=== PATIENT | male | born 1960 | race Caucasian/White ===

== ENCOUNTER 2016-12-01 17:37 | Outpatient (CLI) | payer OTHER | END 2016-12-01 17:38 | disposition critical access hospital (66) | DX: R53.81 Other malaise (principal); R53.1 Weakness | CPT/HCPCS: A0425; A0429 ==

== ENCOUNTER 2016-12-01 18:06 | Inpatient (IN) | payer OTHER ==
[2016-12-01] MEDS ORDERED: FOLIC ACID INJ 1 MG, THIAMINE INJ 100 MG, MAGNESIUM SULFATE 2 GM, MULTIVITAMIN 10 ML in... IV STA ×5 (18:10)
[2016-12-01] MEDS ORDERED: MAGNESIUM SULFATE 2 GRAM 50 ML IV ONE ×2 (18:14→21:23)
[2016-12-01] MEDS ORDERED: THIAMINE 100 MG/1 ML 2 ML MDV ONE ×2 (18:14→18:15)
[2016-12-01] MEDS ORDERED: POTASSIUM BICARB 25 MEQ TABLET PO STA (19:33)
[2016-12-01] MEDS ORDERED: POTASSIUM BICARB 25 MEQ TABLET PO ONE ×2 (19:41→19:48)
[2016-12-01] MEDS ORDERED: ACETAMINOPHEN 325 MG TABLET PO PRN (21:23)
[2016-12-01] MEDS ORDERED: SODIUM CHLORIDE FLUSH 0.9% 10 ML SYRINGE IVP PRN (21:23)
[2016-12-01] MEDS ORDERED: LORazepam 0.5 MG TABLET PO PRN (21:23)
[2016-12-01] MEDS ORDERED: PROCHLORPERAZINE 10 MG/2 ML VIAL IVP PRN (21:23)
[2016-12-01] MEDS ORDERED: oxyCODONE 5 MG TABLET PO PRN ×2 (21:23)
[2016-12-01] MEDS ORDERED: ONDANSETRON 4 MG/2 ML VIAL IVP PRN (21:23)
[2016-12-01] MEDS ORDERED: POTASSIUM CHLORIDE 20 MEQ TABLET PO STA (21:23)
[2016-12-01] MEDS ORDERED: MIN OIL/DIMETHICON/COCONUT OIL 92 GM TUBE TOP PRN (22:33)
[2016-12-01] MEDS ORDERED: POTASSIUM CHLORIDE 20 MEQ TABLET PO SCH (22:58)
[2016-12-01] MEDS: NS W/20 MEQ KCL 1,000 ML IV SCH (23:10)
[2016-12-01] MEDS: NEUTRA-PHOS 250 MG TABLET PO SCH (23:11)
[2016-12-01] MEDS: SODIUM CHLORIDE FLUSH 0.9% 10 ML SYRINGE IVP SCH (23:12)
[2016-12-02] MEDS: CLINDAMYCIN 600 MG/50 ML 50 ML IV SCH ×4 (02:35→21:09)
[2016-12-02] MEDS: PANTOPRAZOLE 40 MG TABLET PO SCH (06:12)
[2016-12-02] MEDS: SODIUM CHLORIDE FLUSH 0.9% 10 ML SYRINGE IVP SCH ×3 (06:13→21:09)
[2016-12-02] MEDS: POTASSIUM CHLOR 10 MEQ/100 ML 100 ML IV SCH ×6 (06:56→14:01)
[2016-12-02] MEDS: NS W/20 MEQ KCL 1,000 ML IV SCH ×2 (06:57→21:08)
[2016-12-02] MEDS: NEUTRA-PHOS 250 MG TABLET PO SCH ×3 (08:47→16:54)
[2016-12-02] MEDS ORDERED: cefTRIAXone 1 GM in SODIUM CHLORIDE 0.9% MINIBAG 100 ML IV SCH (09:00)
[2016-12-02] MEDS ORDERED: AZITHROMYCIN INJ 500 MG in SODIUM CHLORIDE 0.9% 250 ML IV SCH (09:00)
[2016-12-02] MEDS: MULTIVITAMIN 10 ML, THIAMINE INJ 100 MG, FOLIC ACID INJ 1 MG in SODIUM CHLORIDE 0.9% 1,... IV SCH (09:51)
[2016-12-02] MEDS: ENOXAPARIN 40 MG/0.4 ML SYRINGE SUBQ SCH (09:51)
[2016-12-02] MEDS: cefTRIAXone 1 GM in SODIUM CHLORIDE 0.9% MINIBAG 100 ML IV SCH (10:57)
[2016-12-02] MEDS: AZITHROMYCIN INJ 500 MG in SODIUM CHLORIDE 0.9% 250 ML IV SCH (11:34)
[2016-12-02] MEDS: POLYETHYLENE GLYCOL 3350 17 GM PACKET PO SCH (13:16)
[2016-12-02] MEDS: SENNA 8.6 MG TABLET PO SCH (13:16)
[2016-12-02] MEDS: DOCUSATE SODIUM 250 MG CAPSULE PO SCH (13:23)
[2016-12-02] MEDS: LACTULOSE 10 GM /15 ML UDC PO SCH ×2 (16:54→21:09)
[2016-12-02] MEDS ORDERED: LORazepam 2 MG/ML SYRINGE IVP ONE (17:00)
[2016-12-03] MEDS: NS W/20 MEQ KCL 1,000 ML IV SCH ×3 (00:30→14:56)
[2016-12-03] MEDS: CLINDAMYCIN 600 MG/50 ML 50 ML IV SCH ×4 (02:37→21:31)
[2016-12-03] MEDS: SODIUM CHLORIDE FLUSH 0.9% 10 ML SYRINGE IVP SCH ×3 (06:16→21:49)
[2016-12-03] MEDS: PANTOPRAZOLE 40 MG TABLET PO SCH (06:20)
[2016-12-03] MEDS: LACTULOSE 10 GM /15 ML UDC PO SCH ×3 (06:20→21:31)
[2016-12-03] MEDS: cefTRIAXone 1 GM in SODIUM CHLORIDE 0.9% MINIBAG 100 ML IV SCH (08:31)
[2016-12-03] MEDS: POLYETHYLENE GLYCOL 3350 17 GM PACKET PO SCH (08:33)
[2016-12-03] MEDS: DOCUSATE SODIUM 250 MG CAPSULE PO SCH (08:33)
[2016-12-03] MEDS: NEUTRA-PHOS 250 MG TABLET PO SCH ×3 (08:33→16:56)
[2016-12-03] MEDS: SENNA 8.6 MG TABLET PO SCH (08:34)
[2016-12-03] MEDS ORDERED: MAGNESIUM SULFATE 5 GM/10 ML VIAL IV STA (09:38)
[2016-12-03] MEDS ORDERED: MAGNESIUM SULFATE 2 GRAM 50 ML IV STA (09:48)
[2016-12-03] MEDS: ENOXAPARIN 40 MG/0.4 ML SYRINGE SUBQ SCH (09:55)
[2016-12-03] MEDS: AZITHROMYCIN INJ 500 MG in SODIUM CHLORIDE 0.9% 250 ML IV SCH (10:01)
[2016-12-03] MEDS: MULTIVITAMIN 10 ML, THIAMINE INJ 100 MG, FOLIC ACID INJ 1 MG in SODIUM CHLORIDE 0.9% 1,... IV SCH (10:49)
[2016-12-03] MEDS ORDERED: ZINC OXIDE 20% OINT 28.35 GM TUBE TOP PRN (17:10)
[2016-12-04] MEDS: CLINDAMYCIN 600 MG/50 ML 50 ML IV SCH ×4 (02:34→21:05)
[2016-12-04] MEDS: NS W/20 MEQ KCL 1,000 ML IV SCH ×3 (03:02→21:04)
[2016-12-04] MEDS: LACTULOSE 10 GM /15 ML UDC PO SCH ×3 (06:04→21:05)
[2016-12-04] MEDS: PANTOPRAZOLE 40 MG TABLET PO SCH (06:04)
[2016-12-04] MEDS: SODIUM CHLORIDE FLUSH 0.9% 10 ML SYRINGE IVP SCH ×3 (06:07→21:05)
[2016-12-04] MEDS: NEUTRA-PHOS 250 MG TABLET PO SCH ×3 (08:50→16:43)
[2016-12-04] MEDS: DOCUSATE SODIUM 250 MG CAPSULE PO SCH (08:50)
[2016-12-04] MEDS: ENOXAPARIN 40 MG/0.4 ML SYRINGE SUBQ SCH (08:50)
[2016-12-04] MEDS: SENNA 8.6 MG TABLET PO SCH (08:50)
[2016-12-04] MEDS: MULTIVITAMIN 10 ML, THIAMINE INJ 100 MG, FOLIC ACID INJ 1 MG in SODIUM CHLORIDE 0.9% 1,... IV SCH (09:11)
[2016-12-04] MEDS: cefTRIAXone 1 GM in SODIUM CHLORIDE 0.9% MINIBAG 100 ML IV SCH (09:12)
[2016-12-04] MEDS: POLYETHYLENE GLYCOL 3350 17 GM PACKET PO SCH (10:03)
[2016-12-04] MEDS: AZITHROMYCIN INJ 500 MG in SODIUM CHLORIDE 0.9% 250 ML IV SCH (10:08)
[2016-12-05] MEDS: CLINDAMYCIN 600 MG/50 ML 50 ML IV SCH ×2 (03:00→08:32)
[2016-12-05] MEDS: SODIUM CHLORIDE FLUSH 0.9% 10 ML SYRINGE IVP SCH ×4 (05:33→20:12)
[2016-12-05] MEDS: PANTOPRAZOLE 40 MG TABLET PO SCH (05:54)
[2016-12-05] MEDS: LACTULOSE 10 GM /15 ML UDC PO SCH ×2 (05:54→11:03)
[2016-12-05] MEDS: NS W/20 MEQ KCL 1,000 ML IV SCH ×3 (05:55→16:39)
[2016-12-05] MEDS: NEUTRA-PHOS 250 MG TABLET PO SCH ×3 (08:31→16:32)
[2016-12-05] MEDS: SENNA 8.6 MG TABLET PO SCH (08:32)
[2016-12-05] MEDS: ENOXAPARIN 40 MG/0.4 ML SYRINGE SUBQ SCH (08:32)
[2016-12-05] MEDS: DOCUSATE SODIUM 250 MG CAPSULE PO SCH (08:32)
[2016-12-05] MEDS: POLYETHYLENE GLYCOL 3350 17 GM PACKET PO SCH (08:32)
[2016-12-05] MEDS: MULTIVITAMIN TABLET PO SCH (10:39)
[2016-12-05] MEDS: THIAMINE 100 MG TABLET PO SCH (10:39)
[2016-12-05] MEDS: cefTRIAXone 1 GM in SODIUM CHLORIDE 0.9% MINIBAG 100 ML IV SCH (10:39)
[2016-12-05] MEDS: AZITHROMYCIN INJ 500 MG in SODIUM CHLORIDE 0.9% 250 ML IV SCH (10:59)
[2016-12-05] MEDS: FOLIC ACID 1 MG TABLET PO SCH (13:59)
[2016-12-05] MEDS ORDERED: MAGNESIUM SULFATE 5 GM/10 ML VIAL IV STA (14:11)
[2016-12-05] MEDS: MAGNESIUM SULFATE 2 GRAM 50 ML IV SCH ×2 (14:39→15:06)
[2016-12-05] MEDS: SACCHAROMYCES BOULARDII 250 MG CAPSULE PO SCH (16:32)
[2016-12-06] MEDS: NS W/20 MEQ KCL 1,000 ML IV SCH ×2 (00:12→09:14)
[2016-12-06] MEDS: SODIUM CHLORIDE FLUSH 0.9% 10 ML SYRINGE IVP SCH (06:43)
[2016-12-06] MEDS: PANTOPRAZOLE 40 MG TABLET PO SCH (06:52)
[2016-12-06] MEDS: NEUTRA-PHOS 250 MG TABLET PO SCH ×2 (09:15→13:04)
[2016-12-06] MEDS: FOLIC ACID 1 MG TABLET PO SCH (09:15)
[2016-12-06] MEDS: SACCHAROMYCES BOULARDII 250 MG CAPSULE PO SCH (09:15)
[2016-12-06] MEDS: MULTIVITAMIN TABLET PO SCH (09:15)
[2016-12-06] MEDS: DOCUSATE SODIUM 250 MG CAPSULE PO SCH (09:15)
[2016-12-06] MEDS: ENOXAPARIN 40 MG/0.4 ML SYRINGE SUBQ SCH (09:15)
[2016-12-06] MEDS: THIAMINE 100 MG TABLET PO SCH (09:16)
[2016-12-06] MEDS: SENNA 8.6 MG TABLET PO SCH (09:16)
[2016-12-06] MEDS: POLYETHYLENE GLYCOL 3350 17 GM PACKET PO SCH (09:16)
[2016-12-06] MEDS: cefTRIAXone 1 GM in SODIUM CHLORIDE 0.9% MINIBAG 100 ML IV SCH (09:34)
[2016-12-06] MEDS: AZITHROMYCIN INJ 500 MG in SODIUM CHLORIDE 0.9% 250 ML IV SCH (10:52)
== END 2016-12-06 14:51 | DRG 64 ==
DX: I63.9 Cerebral infarction, unspecified (principal); J69.0 Pneumonitis due to inhalation of food and vomit; G93.41 Metabolic encephalopathy; J15.9 Unspecified bacterial pneumonia; L03.116 Cellulitis of left lower limb; F10.231 Alcohol dependence with withdrawal delirium; R27.0 Ataxia, unspecified; R47.81 Slurred speech; R41.89 Other symptoms and signs involving cognitive functions and awareness; R29.715 NIHSS score 15; K76.0 Fatty (change of) liver, not elsewhere classified; E87.6 Hypokalemia; E83.39 Other disorders of phosphorus metabolism; E83.42 Hypomagnesemia; E53.8 Deficiency of other specified B group vitamins; K80.80 Other cholelithiasis without obstruction; N20.0 Calculus of kidney; I10 Essential (primary) hypertension; E86.0 Dehydration; K70.30 Alcoholic cirrhosis of liver without ascites

== ENCOUNTER 2016-12-06 14:56 | Outpatient (CLI) | payer OTHER | END 2016-12-06 14:57 | DX: Z74.01 Bed confinement status (principal) | CPT/HCPCS: A0425; A0428 ==

== ENCOUNTER 2018-12-09 21:33 | Outpatient (CLI) | payer OTHER | END 2018-12-09 21:34 | disposition critical access hospital (66) | LOC: EMS 21:33 | PROVIDERS: ATTEND Surgery | DX: R53.1 Weakness (principal); M79.89 Other specified soft tissue disorders; R21 Rash and other nonspecific skin eruption | CPT/HCPCS: A0425; A0429 ==

== ENCOUNTER 2018-12-09 22:01 | Inpatient (IN) | payer OTHER ==
[2018-12-09] MEDS ORDERED: VANCOMYCIN INJ 1 GM in SODIUM CHLORIDE 0.9% 500 ML IV STA (23:06)
[2018-12-09] MEDS ORDERED: PIPERACILLIN/TAZOBACTAM 3.375 GM in SODIUM CHLORIDE 0.9% MINIBAG 100 ML IV STA (23:07)
[2018-12-09] MEDS ORDERED: LACTATED RINGERS 3,000 ML IV STA (23:07)
[2018-12-09] MEDS ORDERED: LACTULOSE 10 GM /15 ML UDC PO STA (23:11)
--- NOTE | 2018-12-09 23:11 | ED Physician Documentation ---
History of Present Illness - Stated complaint Stated Complaint: WEAKNESS - Chief complaint Chief Complaint: General - History obtained from History obtained from: Patient, Family, EMS - History of Present Illness Timing: How many weeks ago (2) Pain level max: 0 Pain level now: 0 - Additonal information Additional information: 58-year-old male with a history of alcoholism and cirrhosis presents to the emergency department with altered mental status for the past 2 weeks. Increased difficulty walking and difficulty with cognition and finding words. states this is happened in the past when his ammonia levels have been high. He has prescribed Lasix for home but is not taking this. Has been urinating on himself as well and has erythema to the bilateral legs now. Unclear if he is having fevers at home or not. Nothing makes it better or worse. Last drink was 2 weeks ago per Review of Systems Ten Systems: 10 systems reviewed and negative Constitutional: reports: Fever (possible), Chills Nose: denies: Rhinorrhea / runny nose, Congestion Throat: denies: Sore throat Cardiac: denies: Chest pain / pressure Respiratory: denies: Cough GI: denies: Nausea, Vomiting, Diarrhea : denies: Dysuria Skin: denies: Rash Musculoskeletal: denies: Neck pain, Back pain Neurologic: denies: Headache PD PAST MEDICAL HISTORY - Past Medical History Cardiovascular: Hypertension Respiratory: None GI: Cirrhosis HEENT: None Psych: None Musculoskeletal: None Derm: Eczema - Past Surgical History Past Surgical History: No - Present Medications Home Medications: Ambulatory Orders Medication Instructions Recorded Confirmed Magnesium Oxide 400 mg PO DAILY 12/05/16 12/05/16 Potassium Chloride [K-Dur] 20 meq PO BID 12/05/16 12/05/16 - Allergies Allergies/Adverse Reactions: Allergies Allergy/AdvReac Type Severity Reaction Status Date / Time No Known Drug Allergies Allergy Verified 12/09/18 22:10 - Social History Does the pt smoke?: No Smoking Status: Never smoker Does the pt drink ETOH?: Yes Does the pt have substance abuse?: No PD ED PE NORMAL - Vitals Vital signs reviewed: Yes - General General: No acute distress, Well developed/nourished, Other (Oriented to person and place, not time. Very slow to respond to questions) - HEENT HEENT: PERRL, Moist mucous membranes - Neck Neck: Supple, no meningeal sign - Cardiac Cardiac: RRR, Strong equal pulses - Respiratory Respiratory: No respiratory distress, Clear bilaterally - Abdomen Abdomen: Soft, Non tender, Non distended - Derm Derm: Warm and dry - Extremities Extremities: Other (Bilateral erythema, right greater than left involving the groin and going down the bilateral thighs. This been ongoing for 2 weeks. No crepitus. Patient also has asterixis.) - Neuro Neuro: Other (alert, slow to respond) - Psych Psych: Normal mood, Normal affect Results - Vitals Vitals: Vital Signs - 24 hr 12/09/18 22:07 Temperature 36.7 C Heart Rate 60 Respiratory 16 Rate Blood Pressure 155/93 H O2 Saturation 100 Oxygen O2 Source Room air - Labs Labs: Laboratory Tests 12/09/18 12/09/18 12/09/18 22:45 23:07 23:07 WBC 6.5 RBC 3.84 L Hgb 12.5 L Hct 37.0 L MCV 96.3 H MCH 32.6 H MCHC 33.9 RDW 13.5 Plt Count 162 MPV 8.9 Neut # (Auto) 3.9 Lymph # (Auto) 1.6 Hartley # (Auto) 0.8 Eos # (Auto) 0.1 Baso # (Auto) 0.1 Absolute Nucleated RBC 0.00 Nucleated RBC % 0.1 PT 15.4 H INR 1.4 H Sodium 138 Potassium 2.9 L Chloride 105 Carbon Dioxide 26 Anion Gap 7.0 BUN 13 Creatinine 0.9 Estimated GFR (MDRD) 86 L Glucose 93 Lactic Acid Calcium 8.9 Phosphorus 2.5 Magnesium 1.5 L Total Bilirubin 2.0 H AST 28 ALT 19 Alkaline Phosphatase 102 Ammonia Total Protein 5.9 L Albumin 2.6 L Globulin 3.3 Albumin/Globulin Ratio 0.8 L Lipase 51 Ethyl Alcohol < 5.0 12/09/18 12/09/18 23:07 23:07 WBC RBC Hgb Hct MCV MCH MCHC RDW Plt Count MPV Neut # (Auto) Lymph # (Auto) Hartley # (Auto) Eos # (Auto) Baso # (Auto) Absolute Nucleated RBC Nucleated RBC % PT INR Sodium Potassium Chloride Carbon Dioxide Anion Gap BUN Creatinine Estimated GFR (MDRD) Glucose Lactic Acid 0.8 Calcium Phosphorus Magnesium Total Bilirubin AST ALT Alkaline Phosphatase Ammonia 42.3 H Total Protein Albumin Globulin Albumin/Globulin Ratio Lipase Ethyl Alcohol PD MEDICAL DECISION MAKING - ED course Complexity details: reviewed results, re-evaluated patient, considered differential, d/w patient, d/w family, d/w outside solar sales consultant ED course: 58-year-old male with hepatic encephalopathy by clinical exam. Given lactulose. Also given IV fluids. Bilateral lower extremity cellulitis present as well. Will start on antibiotics. Discussed the case with the hospitalist who accepts. This document was made in part using voice recognition software. While efforts are made to proofread this document, sound alike and grammatical errors may occur. Departure - Departure Disposition: ED Place in Observation Clinical Impression: Hepatic encephalopathy Cellulitis Qualifiers: Site of cellulitis: extremity Site of cellulitis of extremity: lower extremity Laterality: unspecified laterality Qualified Code(s): L03.119 - Cellulitis of unspecified part of limb Condition: Stable Discharge Date/Time: 12/10/18 00:49
[2018-12-09 23:13] LABS: BASOPHILS # (AUTO) 0.1 10^3/uL (0.0-0.1); BASOPHILS % (AUTO) 0.8 %; EOSINOPHILS # (AUTO) 0.1 10^3/uL (0.0-0.7); EOSINOPHILS % (AUTO) 2.1 %; HGB - HEMOGLOBIN 12.5 g/dL (14.0-18.0); LYMPHOCYTES # (AUTO) 1.6 10^3/uL (1.5-3.5); LYMPHOCYTES % (AUTO) 23.9 %; MEAN CORPUSCULAR HEMOGLOBIN 32.6 pg (27.0-31.0); MEAN CORPUSCULAR HGB CONC 33.9 g/dL (32.0-36.0); MEAN CORPUSCULAR VOLUME 96.3 fL (80.0-94.0); MEAN PLATELET VOLUME 8.9 fL (7.4-11.4); MONOCYTES # (AUTO) 0.8 10^3/uL (0.0-1.0); MONOCYTES % (AUTO) 12.4 %; NEUTROPHILS # (AUTO) 3.9 10^3/uL (1.5-6.6); NEUTROPHILS % (AUTO) 60.8 %; PLT - PLATELET COUNT 162 10^3/uL (130-450); RED BLOOD COUNT 3.84 10^6/uL (4.70-6.10); RED CELL DISTRIBUTION WIDTH 13.5 % (12.0-15.0); WHITE BLOOD COUNT 6.5 x10^3/uL (4.8-10.8)
--- NOTE | 2018-12-09 23:23 | HISTORY & PHYSICAL EXAMINATION ---
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 In the emergency department patient was seen to have altered mental status for the past 2 weeks. Increased difficulty walking and difficulty with cognition and finding words. states this is happened in the past when his ammonia levels have been high. He has prescribed Lasix for home but is not taking this. Has been urinating on himself as well and has erythema to the bilateral legs now. Unclear if he is having fevers at home or not. Nothing makes it better or worse. Last drink was 2 weeks ago per . Sepsis workup initiated, no withdrawal signs or symptoms seen, no fevers, VSS, slightly hypertensive, ECG w/o arrhythmias. CBC shows macrocytosis mild anemia without bleeding issues. Vanco/zosyn x 1 dose given in ED. Ammonia level was surprisingly 42.3, T bili of 2.0, patient did have hypokalemia with a potassium of 2.9, magnesium of 1.5, denies taking Lasix. Patient has extensive bilateral lower extremity edema with erysipelas streaking up to left medial aspect of thigh with dermatosis and denuded areas of skin. states that patient has urinary incontinence and at times there are issues with patient's hygiene. Lactic acid was only 0.8. Patient denies any withdrawal symptoms however does have some involuntary movements with asterixis noted along with gait disturbance balance issues for which confirms that he only "furniture and wall walks" while using a cane. History - Past Medical History Cardiovascular: reports: Hypertension Respiratory: reports: None GI: reports: Cirrhosis HEENT: reports: None Psych: reports: None Musculoskeletal: reports: None Derm: reports: Eczema MRSA Hx?: Yes Meds/Allgy - Home Medications Home Medications: Ambulatory Orders Medication Instructions Recorded Confirmed Magnesium Oxide 400 mg PO DAILY 12/05/16 12/05/16 Potassium Chloride [K-Dur] 20 meq PO BID 12/05/16 12/05/16 - Allergies Allergies/Adverse Reactions: Allergies Allergy/AdvReac Type Severity Reaction Status Date / Time No Known Drug Allergies Allergy Verified 12/09/18 22:10 Review of Systems - All Other Systems All Other Systems: reports: Reviewed and negative Prior Level of Functionality: Patient has partial independence with home ADLs for which assists. Patient ambulates via cane and often uses furniture in the wall to ambulate due to gait disturbance Exam - Vital Signs Vital Signs: Vital Signs x48h Temp Pulse Resp BP Pulse Ox 12/09/18 22:07 36.7 C 60 16 155/93 H 100 - Physical Exam General Appearance: positive: No acute distress, Alert, Other (Patient is dysarthric slurred speech poor historian) Eyes Bilateral: positive: Normal inspection, PERRL, EOMI, Conjunctivae nml, No scleral icterus ENT: positive: ENT inspection nml, Pharynx nml, Dry mucous membranes Neck: positive: Nml inspection, Thyroid nml, No JVD, Trachea midline Respiratory: positive: Chest non-tender, No respiratory distress, Breath sounds nml Cardiovascular: positive: Regular rate & rhythm, No murmur, No gallop Peripheral Pulses: positive: 2+ Abdomen: positive: Non-tender, Nml bowel sounds, No distention, Other (Mild to moderate ascites palpable). negative: Tenderness, Hepatomegaly, Splenomegaly Skin: positive: Warm, Other (Patient has bilateral lower extremity erythematous lesions streaking mainly up to the left anterior medial aspect of thigh with denuded skin, No embolic or necrotic lesions noted.) Extremities: positive: Non-tender, Full ROM, Pedal edema, Other (Bilateral lower extremity edema 1+). negative: Calf tenderness, Joint swelling Neurologic/Psychiatric: positive: CN's nml (2-12), Motor nml, Sensation nml, Slurred/abnml speech, Depressed mood/affect, Other (Asterixis noted to left upper extremity/hand) Reflexes: Ankle (R): 3+, Ankle (L): 3+ Babinski Reflex: Right: Absent, Left: Absent Sepsis Event Note (H) - Evaluation Current Stage of Sepsis: Ruled out Conclusion/Plan - Problem List (1) Hepatic encephalopathy Conclusion/Plan: We will admit for observation, medical management for now. Likely precipitated from electrolyte disturbance and/or an infection that patient has to his bilateral lower extremities that has been ongoing for approximately 1-2 weeks. Patient's ammonia level at 42.3. We will initiate rifaximin 550 mill grams p.o. twice daily along with lactulose 15 g p.o. 3 times daily. Will follow trending. Patient with recurrence likely due to worsening underlying alcohol liver cirrhosis. (2) Cellulitis Conclusion/Plan: Patient has bilateral lower extremity cellulitis with erysipelas more on the left anterior medial aspect up to his scrotum likely related to previous urinary incontinence with on cleanliness and poor hygiene. Patient's bilateral lower extremity cellulitis has been ongoing for approximately 1-2 weeks. Will apply a Woody catheter to maintain area dry along with placing patient on IV Ancef. Patient was given vancomycin Zosyn x1 in the ED. Wound care consult. Qualifiers: Site of cellulitis: extremity Site of cellulitis of extremity: lower extremity Laterality: unspecified laterality Qualified Code(s): L03.119 - Cellulitis of unspecified part of limb (3) Macrocytosis Conclusion/Plan: Patient has history of folic acid deficiency and has been on supplementation will recheck folic acid and vitamin B12 as patient has ataxia with gait disturbance and might have underlying deficiencies that may explain this. (4) Generalized weakness Conclusion/Plan: Multifactorial in origin secondary to hepatic encephalopathy plus other nutritional deficiencies as this pertains to chronic alcohol liver cirrhosis. Physical therapy to address and provide recommendation for a mobility program as patient ambulates via cane at this point however mentions that he has difficulty with ambulation by grabbing onto turcios and furniture. (5) Ataxia Conclusion/Plan: Physical therapy will be consulted to assess for patient's ongoing ataxia with gait disturbance. Patient has visible asterixis as this relates to his hepatic encephalopathy and chronic alcohol liver cirrhosis. (6) Urinary incontinence Conclusion/Plan: Patient's urinary incontinence as it may pertain to diuretic use and/or worsening hepatic encephalopathy. Woody catheterization indicated to maintain star-anal area clean and dry and for healing of erysipelas/cellulitis of anterior medial left lower extremity with scrotal involvement. Qualifiers: Urinary Incontinence type: unspecified incontinence Qualified Code(s): R32 - Unspecified urinary incontinence (7) Hypokalemia Conclusion/Plan: Secondary to nutritional deficits as patient states he is not on Lasix. Will correct with giving 1 dose of potassium chloride 40 mEq p.o. x1 along with applying Aldactone for potassium sparing benefit. (8) Hypomagnesemia Conclusion/Plan: Will provide 2 g of mag rider along with placing on mag oxide 400 mg p.o. with meals (9) Nodule on liver Conclusion/Plan: This was noted on prior admission and patient denies having followed this up on a recommended 3-month follow-up. 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 (10) Cirrhosis of liver with ascites Conclusion/Plan: Patient with chronic liver cirrhosis with mild to moderate ascites seen on exam. Patient currently does not want to take lactulose however has been given education and counseling to as he is having hepatic encephalopathy. P elin has a child-neri score of 11 points which is class C which translates to a life expectancy 1-3 years along with abdominal surgery perioperative mortality of 82%. Patient's last drink of alcohol was approximately 2 weeks ago. No signs or symptoms of alcohol withdrawal. However, will place on CIWA protocol with Ativan 2 mg IV prn. We will consider placing patient on a modified diet pending a swallow evaluation. Although patient had poor cognition due to his hepatic encephalopathy he was able to understand the discussion concerning his disease management and trajectory of illness for which he decided to be a DNR. Qualifiers: Hepatic cirrhosis type: alcoholic cirrhosis Qualified Code(s): K70.31 - Alcoholic cirrhosis of liver with ascites (11) Coagulopathy Conclusion/Plan: This is secondary to patient's progressive chronic Alcoholic liver cirrhosis. Currently without evidence of bleeding. Continue to monitor for trending. Would avoid all NSAIDs to include aspirin, However patient does have risk for DVT and may be on heparin 5000 subcu twice daily as contraindication exists for patient being placed on SCDs bilateral lower extremity. - Lab Results Lab results reviewed: Yes David Bones: 12/09/18 23:07 12/09/18 23:07 - EKG Results EKG Interpreted Independently: Yes EKG Comparison: Old EKG unavailable EKG Findings: Sinus rhythm at 66 bpm with multifocal premature complexes, LVH, anterior Q waves secondary to LVH likely. Core Measures - Anticipated LOS I expect patient to be DC'd or transferred within 96 hours.: Yes - Issues Hospital Issues and Management Plan: Patient with ambulation issues along with bilateral lower extremity cellulitis/erysipelas and likely will have no complications from resolving hepat ic encephalopathy. May need placement - DVT/VTE - Prophylaxis VTE/DVT Device ordered at admit?: No Not Ordered - Medical Reason: Contraindicated (Due to bilateral lower extremity erysipelas) VTE/DVT Prophylaxis med ordered at admit?: Yes - Stroke - Rehab Assessment Rehab services assessment to be ordered?: No Not Ordered - Medical Reason: Not indicated - AMI - Statin at Admit Aspirin Prescribed on Admit: No Not Ordered - Medical Reason: Not indicated
[2018-12-09 23:26] LABS: ALBUMIN 2.6 g/dL (3.2-5.5); ALBUMIN/GLOBULIN RATIO 0.8 (1.0-2.2); ALKALINE PHOSPHATASE 102 IU/L (42-121); ALT ALANINE AMINOTRANSFERASE 19 IU/L (10-60); AST ASPARTATE AMINOTRANSFERASE 28 IU/L (10-42); BUN - BLOOD UREA NITROGEN 13 mg/dL (6-20); CALCIUM 8.9 mg/dL (8.5-10.3); CARBON DIOXIDE - CO2 26 mmol/L (21-32); CHLORIDE 105 mmol/L (101-111); CREATININE 0.9 mg/dL (0.6-1.2); GFR - MDRD 86 (>89); GLUCOSE 93 mg/dL (70-100); LIPASE 51 U/L (22-51); MAGNESIUM 1.5 mg/dL (1.7-2.8); PHOSPHORUS 2.5 mg/dL (2.5-4.6); SODIUM 138 mmol/L (135-145); TOTAL PROTEIN 5.9 g/dL (6.7-8.2)
[2018-12-09] MEDS ORDERED: ONDANSETRON ODT 4 MG TABLET TL PRN (23:26)
[2018-12-09] MEDS ORDERED: POTASSIUM CHLORIDE 20 MEQ TABLET PO STA (23:34)
[2018-12-09] MEDS ORDERED: MAGNESIUM SULFATE 2 GRAM 2 GM/50 ML BAG IV ONE (23:35)
[2018-12-09] MEDS ORDERED: LORazepam 2 MG/ML VIAL IVP PRN (23:37)
[2018-12-10 00:03] LABS: INR 1.4 (0.8-1.2); PT - PROTHROMBIN TIME 15.4 secs (9.9-12.6)
[2018-12-10] MEDS: rifAXIMin 550 MG TABLET PO SCH ×3 (01:23→20:46)
[2018-12-10] MEDS: LACTATED RINGERS 1,000 ML IV SCH ×2 (02:09→17:47)
[2018-12-10] MEDS: SODIUM CHLORIDE FLUSH 0.9% 10 ML SYRINGE IVP SCH ×3 (02:13→17:37)
[2018-12-10 05:03] LABS: BASOPHILS # (AUTO) 0.1 10^3/uL (0.0-0.1); BASOPHILS % (AUTO) 1.4 %; EOSINOPHILS # (AUTO) 0.2 10^3/uL (0.0-0.7); EOSINOPHILS % (AUTO) 4.1 %; HGB - HEMOGLOBIN 11.6 g/dL (14.0-18.0); LYMPHOCYTES # (AUTO) 1.6 10^3/uL (1.5-3.5); MEAN CORPUSCULAR HEMOGLOBIN 32.6 pg (27.0-31.0); MEAN PLATELET VOLUME 8.6 fL (7.4-11.4); MONOCYTES # (AUTO) 0.7 10^3/uL (0.0-1.0); MONOCYTES % (AUTO) 12.6 %; NEUTROPHILS # (AUTO) 2.9 10^3/uL (1.5-6.6); NEUTROPHILS % (AUTO) 52.9 %; PLT - PLATELET COUNT 140 10^3/uL (130-450); RED BLOOD COUNT 3.56 10^6/uL (4.70-6.10); RED CELL DISTRIBUTION WIDTH 13.1 % (12.0-15.0); WHITE BLOOD COUNT 5.6 x10^3/uL (4.8-10.8)
[2018-12-10 05:06] LABS: INR 1.4 (0.8-1.2)
[2018-12-10 05:14] LABS: ALBUMIN 2.2 g/dL (3.2-5.5); ALBUMIN/GLOBULIN RATIO 0.8 (1.0-2.2); BILIRUBIN,TOTAL 1.8 mg/dL (0.2-1.0); CALCIUM 8.6 mg/dL (8.5-10.3); CREATININE 0.9 mg/dL (0.6-1.2); TOTAL PROTEIN 5.1 g/dL (6.7-8.2)
[2018-12-10 05:42] LABS: FOLATE 17.72 ng/mL (5.90 - >24.8)
[2018-12-10] MEDS: LACTULOSE 10 GM /15 ML UDC PO SCH ×3 (06:49→21:54)
[2018-12-10] MEDS ORDERED: ZINC OXIDE 20% OINT 28.35 GM TUBE TOP PRN (07:40)
[2018-12-10] MEDS ORDERED: VANCOMYCIN INJ 1 GM in SODIUM CHLORIDE 0.9% 250 ML IV SCH (08:00)
[2018-12-10] MEDS ORDERED: VANCOMYCIN PER PHARMACY 100 GM in SODIUM CHLORIDE 0.9% 250 ML IV SCH (08:00)
[2018-12-10] MEDS ORDERED: ceFAZolin 1 GM VIAL IVP SCH (09:00)
[2018-12-10] MEDS: POTASSIUM CHLORIDE 20 MEQ/15 ML UDC PO SCH (10:08)
[2018-12-10] MEDS: HEPARIN 5,000 UNIT/ML VIAL SUBQ SCH ×2 (10:09→20:46)
[2018-12-10] MEDS: POLYETHYLENE GLYCOL 3350 17 GM PACKET PO SCH ×2 (10:09→10:28)
[2018-12-10] MEDS: VANCOMYCIN INJ 1 GM, VANCOMYCIN INJ 500 MG in SODIUM CHLORIDE 0.9% 500 ML IV SCH ×2 (10:33→21:54)
[2018-12-10] MEDS: FAMOTIDINE 20 MG/2 ML VIAL IVP SCH ×2 (10:36→20:46)
[2018-12-10] MEDS: SPIRONOLACTONE 25 MG TABLET PO SCH (10:36)
[2018-12-10] MEDS: MAGNESIUM OXIDE 400 MG TABLET PO SCH (10:36)
[2018-12-10] MEDS: SODIUM CHLORIDE FLUSH 0.9% 10 ML SYRINGE IVP PRN ×2 (10:37→20:47)
--- NOTE | 2018-12-10 10:54 | PROVIDER PROGRESS NOTE ---
Subjective - Prog Note Date Prog Note Date: 12/10/18 Prog Note Time: 10:53 - Subjective Subjective: He is still encephalopathic, very sleepy this morning. He received 1 dose of lactulose last night. Started out at an ammonia level of 42 and his ammonia l evel is 109 this more. Still hypokalemic at 3.2. CBC is stable, vitals are stable except for the fact that he dropped his pressure to 108/56 this morning. No other symptoms. Nursing is reporting to me that the is overwhelmed with taking care of him at home. She would like to talk to older adult social work specialist today Current Medications - Current Medications Current Medications: Active Medications Famotidine (Pepcid) 20 mg IVP BID [facility] Last Admin: 12/10/18 10:36 Dose: 20 mg Heparin Sodium (Porcine) () 5,000 unit SUBQ BID [facility] Last Admin: 12/10/18 10:09 Dose: 5,000 unit Lactated Ringer's (Lr) 1,000 mls @ 75 mls/hr IV .[id number] [facility] Last Infusion: 12/10/18 10:38 Dose: 0 mls/hr Vancomycin HCl 1 gm/Vancomycin HCl 500 mg/ Sodium Chloride 500 mls @ 250 mls/hr IV Q12H [facility] Last Admin: 12/10/18 10:33 Dose: 250 mls/hr Lactulose (Enulose) 15 gm PO TID [facility] Last Admin: 12/10/18 06:49 Dose: 15 gm Lorazepam (Ativan Inj (Vial)) 2 mg IVP Q2HR PRN PRN Reason: CIWA>8 Magnesium Oxide (Mag Ox) 400 mg PO DAILYWM [facility] Last Admin: 12/10/18 10:36 Dose: 400 mg Mineral Oil (Cavilon) 1 applic TOP PRN PRN PRN Reason: Skin Care Multi-Ingredient Ointment (Zinc Oxide) 1 applic TOP PRN PRN PRN Reason: Skin Care Nystatin (Nystop) 1 applic TOP BID IT[facility] Nystatin (Mycostatin Cream) 1 applic TOP BID [facility] Ondansetron HCl (Zofran Odt) 4 mg TL Q6HR PRN PRN Reason: Nausea / Vomiting Polyethylene Glycol (Miralax) 17 gm PO DAILY [facility] Last Admin: 12/10/18 10:28 Dose: Not Given Potassium Chloride () 20 meq PO DAILYWM [facility] Last Admin: 03/21/19 10:08 Dose: 20 meq Rifaximin (Xifaxan) 550 mg PO BID [facility] Last Admin: 12/10/18 10:30 Dose: 550 mg Sodium Chloride (Normal Saline Flush 0.9%) 10 ml IVP PRN PRN PRN Reason: NEEDED PER PROVIDER ORDERS Last Admin: 12/10/18 10:37 Dose: 20 ml Sodium Chloride (Normal Saline Flush 0.9%) 10 ml IVP 0100,0900,1700 [facility] Last Admin: 12/10/18 10:37 Dose: 10 ml Spironolactone (Aldactone) 25 mg PO DAILY [facility] Last Admin: 12/10/18 10:36 Dose: 25 mg Magnesium Oxide 400 mg PO DAILY 12/05/16 Potassium Chloride [K-Dur] 20 meq PO BID 12/05/16 Objective - Vital Signs/Intake & Output Reviewed Vital Signs: Yes Vital Signs: Vital Signs x48h Temp Pulse Resp BP Pulse Ox 12/10/18 07:56 37.0 C 74 14 108/56 L 97 Intake & Output: Intake & Output 12/07/18 12/08/18 12/09/18 12/10/18 23:59 23:59 23:59 23:59 Intake Total 3786.25 Output Total 825 Balance 2961.25 - Objective General Appearance: positive: No acute distress, Lethargic (wakens to voice but goes right back to sleep) Eyes Bilateral: positive: PERRL, EOMI ENT: positive: Pharynx nml Neck: positive: No JVD. negative: Stiff neck, Carotid bruit Respiratory: positive: Chest non-tender, Other (slow shallow unlabored respiration). negative: Wheezes, Rales, Rhonchi Cardiovascular: positive: Regular rate & rhythm. negative: JVD present, Gallop/S4, Friction rub Abdomen: positive: Non-tender, No organomegaly, Other (distension, mild, not tympanitic). negative: Guarding, Rebound Skin: positive: Warm, Dry, Pallor, Skin rash (skin between thighs with reddened chaffed skin, and legs with severe venous stasis cellulits), Other (scrotum is edematous, red.) Extremities: positive: Full ROM, Pedal edema Neurologic/Psychiatric: positive: CN's nml (2-12), Motor nml (slow, no asteri xis), Disoriented to time - Lab Results Fish Bones: 12/10/18 04:45 12/10/18 04:45 Other Labs: Lab Results x24hrs 12/10/18 12/10/18 12/10/18 Range/Units 04:45 04:45 04:45 WBC (4.8-10.8) x10^3/uL RBC (4.70-6.10) 10^6/uL Hgb (14.0-18.0) g/dL Hct (42.0-52.0) % MCV (80.0-94.0) fL MCH (27.0-31.0) pg MCHC (32.0-36.0) g/dL RDW (12.0-15.0) % Plt Count (130-450) 10^3/uL MPV (7.4-11.4) fL Neut # (Auto) (1.5-6.6) 10^3/uL Lymph # (Auto) (1.5-3.5) 10^3/uL [place] # (Auto) (0.0-1.0) 10^3/uL Eos # (Auto) (0.0-0.7) 10^3/uL Baso # (Auto) (0.0-0.1) 10^3/uL Absolute Nucleated RBC x10^3/uL Nucleated RBC % /100WBC PT (9.9-12.6) secs INR (0.8-1.2) Sodium 141 (135-145) mmol/L Potassium 3.2 L (3.5-5.0) mmol/L Chloride 110 (101-111) mmol/L Carbon Dioxide 25 (21-32) mmol/L Anion Gap 6.0 (6-13) BUN 12 (6-20) mg/dL Creatinine 0.9 (0.6-1.2) mg/dL Estimated GFR (MDRD) 86 L (>89) Glucose 97 (70-100) mg/dL Lactic Acid (0.5-2.2) mmol/L Calcium 8.6 (8.5-10.3) mg/dL Phosphorus (2.5-4.6) mg/dL Magnesium (1.7-2.8) mg/dL Total Bilirubin 1.8 H (0.2-1.0) mg/dL AST 25 (10-42) IU/L ALT 17 (10-60) IU/L Alkaline Phosphatase 98 (42-121) IU/L Ammonia 109.9 H* (7-35) umol/L Total Protein 5.1 L (6.7-8.2) g/dL Albumin 2.2 L (3.2-5.5) g/dL Globulin 2.9 (2.1-4.2) g/dL Albumin/Globulin Ratio 0.8 L (1.0-2.2) Lipase (22-51) U/L Vitamin B12 749 (180-914) pg/mL Folate 17.72 (5.90 - >24.8) ng/mL Nasal Screen MRSA (PCR) (NEGATIVE) Ethyl Alcohol mg/dL 12/10/18 12/10/18 12/10/18 Range/Units 04:45 04:45 02:10 WBC 5.6 (4.8-10.8) x10^3/uL RBC 3.56 L (4.70-6.10) 10^6/uL Hgb 11.6 L (14.0-18.0) g/dL Hct 34.2 L (42.0-52.0) % MCV 96.0 H (80.0-94.0) fL MCH 32.6 H (27.0-31.0) pg MCHC 34.0 (32.0-36.0) g/dL RDW 13.1 (12.0-15.0) % Plt Count 140 (130-450) 10^3/uL MPV 8.6 (7.4-11.4) fL Neut # (Auto) 2.9 (1.5-6.6) 10^3/uL Lymph # (Auto) 1.6 (1.5-3.5) 10^3/uL [place] # (Auto) 0.7 (0.0-1.0) 10^3/uL Eos # (Auto) 0.2 (0.0-0.7) 10^3/uL Baso # (Auto) 0.1 (0.0-0.1) 10^3/uL Absolute Nucleated RBC 0.00 x10^3/uL Nucleated RBC % 0.1 /100WBC PT 16.0 H (9.9-12.6) secs INR 1.4 H (0.8-1.2) Sodium (135-145) mmol/L Potassium (3.5-5.0) mmol/L Chloride (101-111) mmol/L Carbon Dioxide (21-32) mmol/L Anion Gap (6-13) BUN (6-20) mg/dL Creatinine (0.6-1.2) mg/dL Estimated GFR (MDRD) (>89) Glucose (70-100) mg/dL Lactic Acid (0.5-2.2) mmol/L Calcium (8.5-10.3) mg/dL Phosphorus (2.5-4.6) mg/dL Magnesium (1.7-2.8) mg/dL Total Bilirubin (0.2-1.0) mg/dL AST (10-42) IU/L ALT (10-60) IU/L Alkaline Phosphatase (42-121) IU/L Ammonia (7-35) umol/L Total Protein (6.7-8.2) g/dL Albumin (3.2-5.5) g/dL Globulin (2.1-4.2) g/dL Albumin/Globulin Ratio (1.0-2.2) Lipase (22-51) U/L Vitamin B12 (180-914) pg/mL Folate (5.90 - >24.8) ng/mL Nasal Screen MRSA (PCR) POSITIVE A* (NEGATIVE) Ethyl Alcohol mg/dL 12/09/18 12/09/18 12/09/18 Range/Units 23:07 23:07 23:07 WBC (4.8-10.8) x10^3/uL RBC (4.70-6.10) 10^6/uL Hgb (14.0-18.0) g/dL Hct (42.0-52.0) % MCV (80.0-94.0) fL MCH (27.0-31.0) pg MCHC (32.0-36.0) g/dL RDW (12.0-15.0) % Plt Count (130-450) 10^3/uL MPV (7.4-11.4) fL Neut # (Auto) (1.5-6.6) 10^3/uL Lymph # (Auto) (1.5-3.5) 10^3/uL [place] # (Auto) (0.0-1.0) 10^3/uL Eos # (Auto) (0.0-0.7) 10^3/uL Baso # (Auto) (0.0-0.1) 10^3/uL Absolute Nucleated RBC x10^3/uL Nucleated RBC % /100WBC PT (9.9-12.6) secs INR (0.8-1.2) Sodium 138 (135-145) mmol/L Potassium 2.9 L (3.5-5.0) mmol/L Chloride 105 (101-111) mmol/L Carbon Dioxide 26 (21-32) mmol/L Anion Gap 7.0 (6-13) BUN 13 (6-20) mg/dL Creatinine 0.9 (0.6-1.2) mg/dL Estimated GFR (MDRD) 86 L (>89) Glucose 93 (70-100) mg/dL Lactic Acid 0.8 (0.5-2.2) mmol/L Calcium 8.9 (8.5-10.3) mg/dL Phosphorus 2.5 (2.5-4.6) mg/dL Magnesium 1.5 L (1.7-2.8) mg/dL Total Bilirubin 2.0 H (0.2-1.0) mg/dL AST 28 (10-42) IU/L ALT 19 (10-60) IU/L Alkaline Phosphatase 102 (42-121) IU/L Ammonia 42.3 H (7-35) umol/L Total Protein 5.9 L (6.7-8.2) g/dL Albumin 2.6 L (3.2-5.5) g/dL Globulin 3.3 (2.1-4.2) g/dL Albumin/Globulin Ratio 0.8 L (1.0-2.2) Lipase 51 (22-51) U/L Vitamin B12 (180-914) pg/mL Folate (5.90 - >24.8) ng/mL Nasal Screen MRSA (PCR) (NEGATIVE) Ethyl Alcohol < 5.0 mg/dL 03/20/19 03/20/19 Range/Units 23:07 22:45 WBC 6.5 (4.8-10.8) x10^3/uL RBC 3.84 L (4.70-6.10) 10^6/uL Hgb 12.5 L (14.0-18.0) g/dL Hct 37.0 L (42.0-52.0) % MCV 96.3 H (80.0-94.0) fL MCH 32.6 H (27.0-31.0) pg MCHC 33.9 (32.0-36.0) g/dL RDW 13.5 (12.0-15.0) % Plt Count 162 (130-450) 10^3/uL MPV 8.9 (7.4-11.4) fL Neut # (Auto) 3.9 (1.5-6.6) 10^3/uL Lymph # (Auto) 1.6 (1.5-3.5) 10^3/uL [place] # (Auto) 0.8 (0.0-1.0) 10^3/uL Eos # (Auto) 0.1 (0.0-0.7) 10^3/uL Baso # (Auto) 0.1 (0.0-0.1) 10^3/uL Absolute Nucleated RBC 0.00 x10^3/uL Nucleated RBC % 0.1 /100WBC PT 15.4 H (9.9-12.6) secs INR 1.4 H (0.8-1.2) Sodium (135-145) mmol/L Potassium (3.5-5.0) mmol/L Chloride (101-111) mmol/L Carbon Dioxide (21-32) mmol/L Anion Gap (6-13) BUN (6-20) mg/dL Creatinine (0.6-1.2) mg/dL Estimated GFR (MDRD) (>89) Glucose (70-100) mg/dL Lactic Acid (0.5-2.2) mmol/L Calcium (8.5-10.3) mg/dL Phosphorus (2.5-4.6) mg/dL Magnesium (1.7-2.8) mg/dL Total Bilirubin (0.2-1.0) mg/dL AST (10-42) IU/L ALT (10-60) IU/L Alkaline Phosphatase (42-121) IU/L Ammonia (7-35) umol/L Total Protein (6.7-8.2) g/dL Albumin (3.2-5.5) g/dL Globulin (2.1-4.2) g/dL Albumin/Globulin Ratio (1.0-2.2) Lipase (22-51) U/L Vitamin B12 (180-914) pg/mL Folate (5.90 - >24.8) ng/mL Nasal Screen MRSA (PCR) (NEGATIVE) Ethyl Alcohol mg/dL ABX Reporting Has patient been on IV antibiotics over the past 48 hours?: Yes Sepsis Event Note (H) - Evaluation Current Stage of Sepsis: Ruled out Assessment/Plan - Problem List (1) Hepatic encephalopathy Impression: he received one dose of lactulose in the ER and ammonia level up. got another dose this am. No evidence of GI bleed but does have infection as cause of decompensation. Plan: to continue lactulose, and treat infection. if not awake in the next few hours may need to be changed to inpatient status from obv status. (2) Contact dermatitis due to chemicals Impression: he has had urinary incontinence w his confusion and would let urine sit on his thighs causing a dermatitis and skin breakdown. Plan: wound consult today. (3) Venous stasis dermatitis of both lower extremities Impression: check ARLEEN to make sure can do compression. on abx and improved from last night to today Day #2 Vancomycin (4) Cellulitis Impression: on abx and improved from last night to today Day #2 Vancomycin Qualifiers: Site of cellulitis: extremity Site of cellulitis of extremity: lower extremity Laterality: unspecified laterality Qualified Code(s): L03.119 - Cellulitis of unspecified part of limb (5) Cirrhosis of liver with ascites Impression: not on meds at home. on rifaximin and spironolactone here. BP dropped this am. Will wait to add betablocker. Also investigate records to see if he has varices. Qualifiers: Hepatic cirrhosis type: alcoholic cirrhosis Qualified Code(s): K70.31 - Alcoholic cirrhosis of liver with ascites (6) Macrocytosis Impression: Laboratory Tests 12/10/18 04:45 Vitamin B12 749 Folate 17.72 will give oral folate in a patient w hx of alcohol abuse. 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 If he needs placement or rehab will need PT eval. That has been ordered. In reviewing his admit from 2017, he appears to have worsed with cognitive deficit, ataxia, memory loss and now urinary incontinenc. (8) Urinary incontinence Impression: from overflow incontinence in face of BPH or confusion/dementia? Woody in place until skin heals. Qualifiers: Urinary Incontinence type: unspecified incontinence Qualified Code(s): R32 - Unspecified urinary incontinence (9) Hypokalemia Impression: supplement po and check in am. (10) Nodule on liver Impression: that was present on 2017 US with the last admission and he was told to fu w US. I don't see another US in EMR Plan: US of liver alpha protein
[2018-12-10] MEDS: NYSTATIN POWDER 15 GM TOP SCH ×2 (12:38→20:53)
[2018-12-10] MEDS: NYSTATIN CREAM 15 GM TUBE TOP SCH ×2 (12:38→20:54)
[2018-12-10] MEDS: PETROLATUM WHITE 5 GM PACKET TOP PRN (12:39)
--- NOTE | 2018-12-11 05:05 | Ultrasound Report ---
Reason: hx of liver nodule, alcoholic cirrhosis Procedure Date: 12/11/2018 Accession Number: [id number] / [id number] Procedure: US - Abdomen Complete CPT Code: FULL RESULT: EXAM: ABDOMEN ULTRASOUND EXAM DATE: 12/11/2018 04:00 AM. CLINICAL HISTORY: Hx of liver nodule, alcoholic cirrhosis. COMPARISON: ABDOMEN LIMITED 12/01/2016 8:46 PM. TECHNIQUE: Real-time scanning was performed with static images obtained. FINDINGS: Liver: Echogenic and heterogeneous. The 4 mm nodule noted on prior ultrasound could not be visualized on the current study. 13.4 cm. Main portal vein flow: Hepatofugal. Gallbladder: Multiple stones. Mild wall thickening at 3.8 mm. No focal tenderness over the gallbladder. Biliary System: Common bile duct measures 4.0 mm. No intrahepatic or extrahepatic ductal dilatation. Pancreas: Pancreas is suboptimally seen due to bowel gas. Visualized portion appears normal. Kidneys: Right: 13.7 cm longitudinally. No hydronephrosis seen. Multiple calcifications which could represent nonobstructing stones or medullary sponge kidney. Left: 13.0 cm longitudinally. No hydronephrosis seen. Cyst measuring 2.8 x 2.0 x 2.1 cm. Multiple calcifications which could be nonobstructing stones or medullary sponge kidney. Spleen: 11.5 cm. No focal abnormality seen. Aorta and Inferior Vena Cava: Unremarkable where seen. Other: Images are degraded due to body habitus. IMPRESSION: 1. Heterogeneous fatty liver. The 4 mm liver nodule seen on prior ultrasound could not be visualized on the current exam. 2. Cholelithiasis and mild gallbladder wall thickening. No focal tenderness over the gallbladder. No definite cholecystitis. 3. No biliary dilatation seen. 4. Flow direction in the portal vein appears to be reversed. This may be due to portal hypertension. 5. Calcifications in the kidneys which could represent nonobstructing stones or medullary sponge kidney. RADIA
[2018-12-11] MEDS: LACTATED RINGERS 1,000 ML IV SCH (06:59)
[2018-12-11] MEDS: SODIUM CHLORIDE FLUSH 0.9% 10 ML SYRINGE IVP SCH ×3 (07:00→16:14)
[2018-12-11 09:49] LABS: BASOPHILS # (AUTO) 0.1 10^3/uL (0.0-0.1); BASOPHILS % (AUTO) 1.6 %; EOSINOPHILS # (AUTO) 0.2 10^3/uL (0.0-0.7); EOSINOPHILS % (AUTO) 4.5 %; HGB - HEMOGLOBIN 12.3 g/dL (14.0-18.0); LYMPHOCYTES # (AUTO) 0.9 10^3/uL (1.5-3.5); LYMPHOCYTES % (AUTO) 18.2 %; MEAN CORPUSCULAR HEMOGLOBIN 33.2 pg (27.0-31.0); MEAN CORPUSCULAR HGB CONC 32.4 g/dL (32.0-36.0); MEAN CORPUSCULAR VOLUME 102.3 fL (80.0-94.0); MEAN PLATELET VOLUME 9.2 fL (7.4-11.4); MONOCYTES # (AUTO) 0.6 10^3/uL (0.0-1.0); MONOCYTES % (AUTO) 11.4 %; NEUTROPHILS # (AUTO) 3.3 10^3/uL (1.5-6.6); NEUTROPHILS % (AUTO) 64.3 %; PLT - PLATELET COUNT 123 10^3/uL (130-450); RED BLOOD COUNT 3.71 10^6/uL (4.70-6.10); RED CELL DISTRIBUTION WIDTH 14.4 % (12.0-15.0); WHITE BLOOD COUNT 5.1 x10^3/uL (4.8-10.8)
[2018-12-11 10:00] LABS: CALCIUM 8.3 mg/dL (8.5-10.3); CREATININE 0.7 mg/dL (0.6-1.2)
[2018-12-11] MEDS: VANCOMYCIN INJ 1 GM, VANCOMYCIN INJ 500 MG in SODIUM CHLORIDE 0.9% 500 ML IV SCH ×2 (10:01→22:20)
[2018-12-11] MEDS: FAMOTIDINE 20 MG/2 ML VIAL IVP SCH ×2 (10:03→20:23)
[2018-12-11] MEDS: SODIUM CHLORIDE FLUSH 0.9% 10 ML SYRINGE IVP PRN ×3 (10:04→22:21)
[2018-12-11] MEDS: LACTULOSE 10 GM /15 ML UDC PO SCH ×2 (10:09→13:24)
[2018-12-11] MEDS: MAGNESIUM OXIDE 400 MG TABLET PO SCH (10:11)
[2018-12-11] MEDS: POLYETHYLENE GLYCOL 3350 17 GM PACKET PO SCH (10:11)
[2018-12-11] MEDS: SPIRONOLACTONE 25 MG TABLET PO SCH (10:11)
[2018-12-11] MEDS: HEPARIN 5,000 UNIT/ML VIAL SUBQ SCH ×2 (10:11→20:23)
[2018-12-11] MEDS: POTASSIUM CHLORIDE 20 MEQ/15 ML UDC PO SCH ×2 (10:11→17:54)
[2018-12-11] MEDS: rifAXIMin 550 MG TABLET PO SCH ×2 (10:11→20:23)
[2018-12-11] MEDS: PETROLATUM WHITE 5 GM PACKET TOP PRN (10:14)
[2018-12-11] MEDS: NYSTATIN POWDER 15 GM TOP SCH ×2 (10:15→20:24)
[2018-12-11] MEDS: NYSTATIN CREAM 15 GM TUBE TOP SCH ×2 (10:15→20:24)
[2018-12-11] MEDS: ZINC SULFATE 220 MG CAPSULE PO SCH (12:18)
[2018-12-11] MEDS: MULTIVITAMIN W/MINERALS TABLET PO SCH (12:18)
[2018-12-11] MEDS: THIAMINE 100 MG TABLET PO SCH (12:18)
--- NOTE | 2018-12-11 17:15 | PROVIDER PROGRESS NOTE ---
Subjective - Prog Note Date Prog Note Date: 12/11/18 Prog Note Time: 18:52 - Subjective Pt reports feeling: No change Subjective: He is still tired. Really does not like taking the lactulose in a couple of times is refused to take it but we have been able to prompt him into taking it. With the current lactulose dose, his ammonia level is still not normal. No new complaints. No chest pain, no abdominal pain, cough is stable. Current Medications - Current Medications Current Medications: Active Medications Famotidine (Pepcid) 20 mg IVP BID [facility] Last Admin: 12/11/18 10:03 Dose: 20 mg Heparin Sodium (Porcine) () 5,000 unit SUBQ BID [facility] Last Admin: 12/11/18 10:11 Dose: 5,000 unit Vancomycin HCl 1 gm/Vancomycin HCl 500 mg/ Sodium Chloride 500 mls @ 250 mls/hr IV Q12H [facility] Last Infusion: 12/11/18 12:15 Dose: Infused Lactulose (Lactulose) 30 gm PO TIDWM [facility] Last Admin: 12/11/18 17:54 Dose: 30 gm Lorazepam (Ativan Inj (Vial)) 2 mg IVP Q2HR PRN PRN Reason: CIWA>8 Magnesium Oxide (Mag Ox) 400 mg PO DAILYWM [facility] Last Admin: 12/11/18 10:11 Dose: 400 mg Mineral Oil (Cavilon) 1 applic TOP PRN PRN PRN Reason: Skin Care Multi-Ingredient Ointment (Zinc Oxide) 1 applic TOP PRN PRN PRN Reason: Skin Care Last Admin: 12/10/18 12:39 Dose: 1 applic Multivitamins/Minerals (Theragran M) 1 tab PO DAILYWM [facility] Last Admin: 12/11/18 12:18 Dose: 1 tab Nystatin (Nystop) 1 applic TOP BID [facility] Last Admin: 12/11/18 10:15 Dose: 1 applic Nystatin (Mycostatin Cream) 1 applic TOP BID [facility] Last Admin: 12/11/18 10:15 Dose: 1 applic Ondansetron HCl (Zofran Odt) 4 mg TL Q6HR PRN PRN Reason: Nausea / Vomiting Petrolatum (Vaseline) 5 gm TOP PRN PRN PRN Reason: Dry Lips Last Admin: 12/11/18 10:14 Dose: 5 gm Polyethylene Glycol (Miralax) 17 gm PO DAILY [facility] Last Admin: 12/11/18 10:11 Dose: Not Given Potassium Chloride () 20 meq PO TIDWM [facility] Last Admin: 12/11/18 17:54 Dose: 20 meq Rifaximin (Xifaxan) 550 mg PO BID [facility] Last Admin: 12/11/18 10:11 Dose: 550 mg Sodium Chloride (Normal Saline Flush 0.9%) 10 ml IVP PRN PRN PRN Reason: NEEDED PER PROVIDER ORDERS Last Admin: 12/11/18 10:04 Dose: 10 ml Sodium Chloride (Normal Saline Flush 0.9%) 10 ml IVP 0100,0900,1700 [facility] Last Admin: 12/11/18 16:14 Dose: 10 ml Spironolactone (Aldactone) 25 mg PO DAILY [facility] Last Admin: 12/11/18 10:11 Dose: 25 mg Thiamine HCl (Vitamin B-1) 100 mg PO DAILY [facility] Last Admin: 12/11/18 12:18 Dose: 100 mg Zinc Sulfate () 220 mg PO DAILY [facility] Last Admin: 12/11/18 12:18 Dose: 220 mg Multivitamin [Theragran] 1 each PO DAILY 12/10/18 Objective - Vital Signs/Intake & Output Reviewed Vital Signs: Yes Vital Signs: Vital Signs x48h Temp Pulse Pulse Resp BP BP Pulse Ox 12/11/18 15:53 36.9 C 64 24 131/72 H 99 12/11/18 10:15 66 124/67 Intake & Output: Intake & Output 12/08/18 12/09/18 12/10/18 12/11/18 23:59 23:59 23:59 23:59 Intake Total 6028.75 2662.25 Output Total 2149 2049 Balance 3878.75 612.25 - Objective General Appearance: positive: No acute distress, Alert, Other (But still with psychomotor slowing, slurred speech,) Eyes Bilateral: positive: PERRL Neck: positive: No JVD. negative: Carotid bruit, Swelling/bruising Respiratory: positive: Chest non-tender. negative: Wheezes, Rales, Rhonchi Cardiovascular: positive: Regular rate & rhythm. negative: Gallop/S4, Friction rub Abdomen: positive: No organomegaly, Nml bowel sounds, Tenderness (Mild and diffuse) Skin: positive: Warm, Dry Extremities: positive: Pedal edema Neurologic/Psychiatric: positive: CN's nml (2-12), Motor nml (ataxia,), Disoriented to time, Slurred/abnml speech - Lab Results Fish Bones: 12/11/18 09:44 12/11/18 09:44 Other Labs: Lab Results x24hrs 12/11/18 12/11/18 12/11/18 Range/Units 09:44 09:44 09:44 WBC 5.1 (4.8-10.8) x10^3/uL RBC 3.71 L (4.70-6.10) 10^6/uL Hgb 12.3 L (14.0-18.0) g/dL Hct 38.0 L (42.0-52.0) % MCV 102.3 H (80.0-94.0) fL MCH 33.2 H (27.0-31.0) pg MCHC 32.4 (32.0-36.0) g/dL RDW 14.4 (12.0-15.0) % Plt Count 123 L (130-450) 10^3/uL MPV 9.2 (7.4-11.4) fL Neut # (Auto) 3.3 (1.5-6.6) 10^3/uL Lymph # (Auto) 0.9 L (1.5-3.5) 10^3/uL [place] # (Auto) 0.6 (0.0-1.0) 10^3/uL Eos # (Auto) 0.2 (0.0-0.7) 10^3/uL Baso # (Auto) 0.1 (0.0-0.1) 10^3/uL Absolute Nucleated RBC 0.01 x10^3/uL Nucleated RBC % 0.2 /100WBC Sodium 135 (135-145) mmol/L Potassium 3.2 L (3.5-5.0) mmol/L Chloride 108 (101-111) mmol/L Carbon Dioxide 23 (21-32) mmol/L Anion Gap 4.0 L (6-13) BUN 11 (6-20) mg/dL Creatinine 0.7 (0.6-1.2) mg/dL Estimated GFR (MDRD) 115 (>89) Glucose 111 H (70-100) mg/dL Calcium 8.3 L (8.5-10.3) mg/dL Ammonia 91.7 H* (7-35) umol/L ABX Reporting Has patient been on IV antibiotics over the past 48 hours?: Yes Sepsis Event Note (H) - Evaluation Current Stage of Sepsis: Ruled out Assessment/Plan - Problem List (1) Hepatic encephalopathy Impression: he received one dose of lactulose in the ER and ammonia level went up from there. Had another dose yesterday am when redraw level done and higher than on admission. by today he has had several doses and ammonia level still to high and he is still w affected speech and thought process. No evidence of GI bleed but does have infection as cause of decompensation. Plan: to continue lactulose, and treat infection. changed to inpatient status yesterday evening. increase lactulose dose even further. (2) Contact dermatitis due to chemicals Impression: he has had urinary incontinence w his confusion and would let urine sit on his thighs causing a dermatitis and skin breakdown. Plan: wound consult done gallagher in place to continue for now until he is more alert for self hygeine. (3) Venous stasis dermatitis of both lower extremities Impression: check ARLEEN to make sure can do compression stockings. on abx and improved from admission to yesterday and even better today with less edema and redness but still not at baseline Day #3 Vancomycin (4) Cellulitis Impression: on abx and improved Day #3 Vancomycin Qualifiers: Site of cellulitis: extremity Site of cellulitis of extremity: lower extremity Laterality: unspecified laterality Qualified Code(s): L03.119 - Cellulitis of unspecified part of limb (5) Cirrhosis of liver with ascites Impression: not on meds at home. on rifaximin and spironolactone here. BP dropped in the morning of 12/10 but then came back up. Investigated records to see if he has varices and none documented. No betablocker for now. Qualifiers: Hepatic cirrhosis type: alcoholic cirrhosis Qualified Code(s): K70.31 - Alcoholic cirrhosis of liver with ascites (6) Macrocytosis Impression: Laboratory Tests 12/10/18 04:45 Vitamin B12 749 Folate 17.72 will give oral folate in a patient w hx of alcohol abuse. 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 If he needs placement or rehab will need PT eval. That has been ordered. In reviewing his admit from 2017, he appears to have worsed with cognitive deficit, ataxia, memory loss and now urinary incontinence. Per PT note: Alireza is a 58 year old male who presents to hospital due to progressive weakness and confusion with medical diagnosis of Hepatic encephalopathy and a PMH significant for ETOH abuse, liver cirrhosis, cholelithiasis, HTN and recurring encephalopathy. Pt presents with improving confusion per charting but is still confused and limited in his mobility. Per pt report he was independent ambulating with use of cane and reaching for turcios while at home and was also being seen by outpatient physical therapy due to decreased balance. Pt lives at home with with 7 stairs to enter home (4+3) with R sided handr ailing. Pt reports having shower chair at home and a handrail by his toilet to assist in his home mobility. Pt currently presents below his PLOF requiring SBA for bed mobility and supine to sit, Min A to perform sit to stand transfer, CtG with use of FWW for ambulation of 15' and has decreased safety/environmental awareness. pt is a high risk for falls due to his decreased balance. At this time recommending pt is D/Kvng to SNF via W/C van as he is a good candidate to improve his functional mobility. If patient is unable to be D/Kvng to SNF pt will require Home PT services and would benefit from prescription of a FWW. (8) Urinary incontinence Impression: from overflow incontinence in face of BPH or confusion/dementia? Gallagher in place until skin heals. Qualifiers: Urinary Incontinence type: unspecified incontinence Qualified Code(s): R32 - Unspecified urinary incontinence (9) Hypokalemia Impression: supplement po and checked this am and still low. Will increase to tid wm. (10) Nodule on liver Impression: that was present on 2017 US with the last admission and he was told to rafael w . I don't see another US in EMR Plan: US of liver done and nodule is not visualized. alpha protein pending.
[2018-12-11] MEDS: LACTULOSE 10 GM/15 ML BOTTLE PO SCH (17:54)
[2018-12-11] MEDS ORDERED: LACTULOSE 10 GM /15 ML UDC PO SCH (18:00)
--- NOTE | 2018-12-11 19:48 | Ultrasound Report ---
Reason: foot and leg ulcers Procedure Date: 12/11/2018 Accession Number: [id number] / [id number] Procedure: US - Ankle Brachial Index CPT Code: FULL RESULT: EXAM: BILATERAL ANKLE/BRACHIAL INDEX EXAM DATE: 12/11/2018 06:35 PM. CLINICAL HISTORY: Foot and leg ulcers. COMPARISON: None. TECHNIQUE: A blood pressure cuff and pulse volume recording Doppler ultrasound was used to evaluate the arterial pressures in the arms and ankle. No images were acquired. FINDINGS: Systolic pressures: Brachial: Right: 122/50. Left: 128/59. Ankle: Right: 144/71. Left: 153/68. IMPRESSION: 1. Right ankle/brachial index: 1.2. 2. Left ankle/brachial index: 1.2. ANKLE/BRACHIAL INDEX REFERENCE STANDARDS 1.0-1.4: Normal 0.90-0.99: Borderline < 0.9: Abnormal RADIA
[2018-12-12] MEDS: SODIUM CHLORIDE FLUSH 0.9% 10 ML SYRINGE IVP SCH ×3 (03:18→16:02)
[2018-12-12 06:57] LABS: BASOPHILS % (AUTO) 0.8 %; EOSINOPHILS # (AUTO) 0.3 10^3/uL (0.0-0.7); EOSINOPHILS % (AUTO) 5.5 %; HGB - HEMOGLOBIN 12.5 g/dL (14.0-18.0); LYMPHOCYTES # (AUTO) 1.6 10^3/uL (1.5-3.5); LYMPHOCYTES % (AUTO) 27.2 %; MEAN CORPUSCULAR HEMOGLOBIN 32.2 pg (27.0-31.0); MEAN CORPUSCULAR HGB CONC 33.4 g/dL (32.0-36.0); MEAN CORPUSCULAR VOLUME 96.4 fL (80.0-94.0); MEAN PLATELET VOLUME 9.1 fL (7.4-11.4); MONOCYTES # (AUTO) 0.6 10^3/uL (0.0-1.0); MONOCYTES % (AUTO) 10.1 %; NEUTROPHILS # (AUTO) 3.2 10^3/uL (1.5-6.6); NEUTROPHILS % (AUTO) 56.4 %; PLT - PLATELET COUNT 144 10^3/uL (130-450); RED BLOOD COUNT 3.89 10^6/uL (4.70-6.10); RED CELL DISTRIBUTION WIDTH 13.3 % (12.0-15.0); WHITE BLOOD COUNT 5.7 x10^3/uL (4.8-10.8)
[2018-12-12 07:07] LABS: CALCIUM 8.3 mg/dL (8.5-10.3); CREATININE 0.8 mg/dL (0.6-1.2)
[2018-12-12 09:35] LABS: VANCOMYCIN,TROUGH 21.1 ug/mL (10.0-20.0)
[2018-12-12] MEDS ORDERED: VANCOMYCIN 1 GM VIAL ONE (09:38)
[2018-12-12] MEDS: LACTULOSE 10 GM/15 ML BOTTLE PO SCH ×3 (09:51→18:24)
[2018-12-12] MEDS: MULTIVITAMIN W/MINERALS TABLET PO SCH (09:53)
[2018-12-12] MEDS: MAGNESIUM OXIDE 400 MG TABLET PO SCH (09:53)
[2018-12-12] MEDS: ZINC SULFATE 220 MG CAPSULE PO SCH (09:53)
[2018-12-12] MEDS: rifAXIMin 550 MG TABLET PO SCH ×2 (09:53→20:03)
[2018-12-12] MEDS: SPIRONOLACTONE 25 MG TABLET PO SCH (09:53)
[2018-12-12] MEDS: THIAMINE 100 MG TABLET PO SCH (09:53)
[2018-12-12] MEDS: POLYETHYLENE GLYCOL 3350 17 GM PACKET PO SCH (09:55)
[2018-12-12] MEDS: POTASSIUM CHLORIDE 20 MEQ/15 ML UDC PO SCH ×3 (09:56→18:24)
[2018-12-12] MEDS: FAMOTIDINE 20 MG/2 ML VIAL IVP SCH ×2 (09:57→20:03)
[2018-12-12] MEDS: NYSTATIN POWDER 15 GM TOP SCH ×2 (09:59→20:04)
[2018-12-12] MEDS: NYSTATIN CREAM 15 GM TUBE TOP SCH ×2 (10:00→20:03)
[2018-12-12] MEDS: HEPARIN 5,000 UNIT/ML VIAL SUBQ SCH ×2 (10:01→20:04)
--- NOTE | 2018-12-12 15:37 | PROVIDER PROGRESS NOTE ---
Subjective - Prog Note Date Prog Note Date: 12/12/18 Prog Note Time: 14:28 - Subjective Pt reports feeling: Improved Current Medications - Current Medications Current Medications: Active Medications Famotidine (Pepcid) 20 mg IVP BID [facility] Last Admin: 12/12/18 09:57 Dose: 20 mg Heparin Sodium (Porcine) () 5,000 unit SUBQ BID [facility] Last Admin: 12/12/18 10:01 Dose: 5,000 unit Vancomycin HCl 1 gm/Vancomycin HCl 250 mg/ Sodium Chloride 250 mls @ 166.667 mls/hr IV Q12H [facility] Lactulose (Lactulose) 30 gm PO TIDWM [facility] Last Admin: 12/12/18 12:16 Dose: 30 gm Lorazepam (Ativan Inj (Vial)) 2 mg IVP Q2HR PRN PRN Reason: CIWA>8 Magnesium Oxide (Mag Ox) 400 mg PO DAILYWM [facility] Last Admin: 12/12/18 09:53 Dose: 400 mg Mineral Oil (Cavilon) 1 applic TOP PRN PRN PRN Reason: Skin Care Multi-Ingredient Ointment (Zinc Oxide) 1 applic TOP PRN PRN PRN Reason: Skin Care Last Admin: 12/10/18 12:39 Dose: 1 applic Multivitamins/Minerals (Theragran M) 1 tab PO DAILYWM [facility] Last Admin: 12/12/18 09:53 Dose: 1 tab Nystatin (Nystop) 1 applic TOP BID [facility] Last Admin: 12/12/18 09:59 Dose: 1 applic Nystatin (Mycostatin Cream) 1 applic TOP BID [facility] Last Admin: 12/12/18 10:00 Dose: 1 applic Ondansetron HCl (Zofran Odt) 4 mg TL Q6HR PRN PRN Reason: Nausea / Vomiting Petrolatum (Vaseline) 5 gm TOP PRN PRN PRN Reason: Dry Lips Last Admin: 12/11/18 10:14 Dose: 5 gm Polyethylene Glycol (Miralax) 17 gm PO DAILY [facility] Last Admin: 12/12/18 09:55 Dose: 17 gm Potassium Chloride () 20 meq PO TIDWM [facility] Last Admin: 12/12/18 12:16 Dose: 20 meq Rifaximin (Xifaxan) 550 mg PO BID [facility] Last Admin: 12/12/18 09:53 Dose: 550 mg Sodium Chloride (Normal Saline Flush 0.9%) 10 ml IVP PRN PRN PRN Reason: NEEDED PER PROVIDER ORDERS Last Admin: 12/11/18 22:21 Dose: 10 ml Sodium Chloride (Normal Saline Flush 0.9%) 10 ml IVP 0100,0900,1700 [facility] Last Admin: 12/12/18 09:55 Dose: 10 ml Spironolactone (Aldactone) 25 mg PO DAILY [facility] Last Admin: 12/12/18 09:53 Dose: 25 mg Thiamine HCl (Vitamin B-1) 100 mg PO DAILY [facility] Last Admin: 12/12/18 09:53 Dose: 100 mg Zinc Sulfate () 220 mg PO DAILY [facility] Last Admin: 12/12/18 09:53 Dose: 220 mg Multivitamin [Theragran] 1 each PO DAILY 12/10/18 Objective - Vital Signs/Intake & Output Reviewed Vital Signs: Yes Vital Signs: Vital Signs x48h Temp Pulse Resp BP Pulse Ox 12/12/18 07:45 36.2 C L 64 20 112/83 H 100 Intake & Output: Intake & Output 12/09/18 12/10/18 12/11/18 12/12/18 23:59 23:59 23:59 23:59 Intake Total 6028.75 3112.25 2030 Output Total 2150 3150 3250 Balance 3878.75 -37.75 -1220 - Objective General Appearance: positive: No acute distress, Alert, Other (Sitting up in chair, still with psychomotor slowing, slurred speech in spite of ammonia levels now being normal. A couple of times he is refused the lactulose but is prompted to take it and has been cooperative for that.) Eyes Bilateral: positive: PERRL ENT: positive: No signs of dehydration Neck: positive: No JVD. negative: Stiff neck, Carotid bruit Respiratory: positive: Chest non-tender. negative: Wheezes, Rales, Rhonchi Cardiovascular: positive: Regular rate & rhythm. negative: Gallop/S4, Friction rub Abdomen: positive: Non-tender, No organomegaly, Nml bowel sounds, Other (Scrotal edema has been reduced since admission. Not nearly as red or distended sacs). negative: Guarding, Rebound Skin: positive: Warm, Dry, Other (Discoloration of venous stasis of both lower extremities. The left leg is wrapped nydia ulcers. The right leg has less edema, less warmth less redness but still the violaceous discoloration of venous stasis is present.) Neurologic/Psychiatric: positive: CN's nml (2-12), Disoriented to person (At times), Disoriented to time (At times) - Lab Results Fish Bones: 12/12/18 06:00 12/12/18 06:40 Other Labs: Lab Results x24hrs 12/12/18 12/12/18 12/12/18 Range/Units 09:20 06:40 06:40 WBC (4.8-10.8) x10^3/uL RBC (4.70-6.10) 10^6/uL Hgb (14.0-18.0) g/dL Hct (42.0-52.0) % MCV (80.0-94.0) fL MCH (27.0-31.0) pg MCHC (32.0-36.0) g/dL RDW (12.0-15.0) % Plt Count (130-450) 10^3/uL MPV (7.4-11.4) fL Neut # (Auto) (1.5-6.6) 10^3/uL Lymph # (Auto) (1.5-3.5) 10^3/uL [place] # (Auto) (0.0-1.0) 10^3/uL Eos # (Auto) (0.0-0.7) 10^3/uL Baso # (Auto) (0.0-0.1) 10^3/uL Absolute Nucleated RBC x10^3/uL Nucleated RBC % /100WBC Sodium 136 (135-145) mmol/L Potassium 3.5 (3.5-5.0) mmol/L Chloride 108 (101-111) mmol/L Carbon Dioxide 25 (21-32) mmol/L Anion Gap 3.0 L (6-13) BUN 9 (6-20) mg/dL Creatinine 0.8 (0.6-1.2) mg/dL Estimated GFR (MDRD) 99 (>89) Glucose 84 (70-100) mg/dL Calcium 8.3 L (8.5-10.3) mg/dL Ammonia 22.1 (7-35) umol/L Last Dose Date 12/12/18 Last Dose Time 01:45 Vancomycin Trough 21.1 H (10.0-20.0) ug/mL 12/12/18 Range/Units 06:00 WBC 5.7 (4.8-10.8) x10^3/uL RBC 3.89 L (4.70-6.10) 10^6/uL Hgb 12.5 L (14.0-18.0) g/dL Hct 37.5 L (42.0-52.0) % MCV 96.4 H (80.0-94.0) fL MCH 32.2 H (27.0-31.0) pg MCHC 33.4 (32.0-36.0) g/dL RDW 13.3 (12.0-15.0) % Plt Count 144 (130-450) 10^3/uL MPV 9.1 (7.4-11.4) fL Neut # (Auto) 3.2 (1.5-6.6) 10^3/uL Lymph # (Auto) 1.6 (1.5-3.5) 10^3/uL [place] # (Auto) 0.6 (0.0-1.0) 10^3/uL Eos # (Auto) 0.3 (0.0-0.7) 10^3/uL Baso # (Auto) 0.0 (0.0-0.1) 10^3/uL Absolute Nucleated RBC 0.00 x10^3/uL Nucleated RBC % 0.0 /100WBC Sodium (135-145) mmol/L Potassium (3.5-5.0) mmol/L Chloride (101-111) mmol/L Carbon Dioxide (21-32) mmol/L Anion Gap (6-13) BUN (6-20) mg/dL Creatinine (0.6-1.2) mg/dL Estimated GFR (MDRD) (>89) Glucose (70-100) mg/dL Calcium (8.5-10.3) mg/dL Ammonia (7-35) umol/L Last Dose Date Last Dose Time Vancomycin Trough (10.0-20.0) ug/mL Sepsis Event Note (H) - Evaluation Current Stage of Sepsis: Ruled out Assessment/Plan - Problem List (1) Hepatic encephalopathy Impression: he received one dose of lactulose in the ER and ammonia level went up from t here. Had another dose 12/10 am when redraw level done and higher than on admission. by 12/11 he had several doses and ammonia level still too high and he is still w affected speech and thought process. No evidence of GI bleed but does have infection as cause of decompensation. This morning, his ammonia level is normal but there is minimal improvement in his cognition, alertness, speech pattern, or balance. Still not really improved. Plan: to continue lactulose, and treat infection. changed to inpatient status 12/10 evening. increase lactulose dose even further. (2) Contact dermatitis due to chemicals Impression: he has had urinary incontinence w his confusion and would let urine sit on his thighs causing a dermatitis and skin breakdown. Plan: wound consult done gallagher in place to continue for now until he is more alert for self hygeine. (3) Venous stasis dermatitis of both lower extremities Impression: check ARLEEN to make sure can do compression stockings. on abx and improved from admission to yesterday and even better today with less edema and redness but still not at baseline Day #3 Vancomycin (4) Cellulitis Impression: on abx and improved but needs wound care for his dressings. Day #3 Vancomycin Qualifiers: Site of cellulitis: extremity Site of cellulitis of extremity: lower extremity Laterality: unspecified laterality Qualified Code(s): L03.119 - Cellulitis of unspecified part of limb (5) Cirrhosis of liver with ascites Impression: not on meds at home. on rifaximin and spironolactone here. BP dropped in the morning of 12/10 but then came back up. Investigated records to see if he has varices and none documented. No betablocker for now. Qualifiers: Hepatic cirrhosis type: alcoholic cirrhosis Qualified Code(s): K70.31 - Alcoholic cirrhosis of liver with ascites (6) Macrocytosis Impression: Laboratory Tests 12/10/18 04:45 Vitamin B12 749 Folate 17.72 will give oral folate in a patient w hx of alcohol abuse. 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 If he needs placement or rehab will need PT eval. That has been ordered. In reviewing his admit from 2017, he appears to have worsed with cognitive deficit, ataxia, memory loss and now urinary incontinence. Per PT note: Alireza is a 58 year old male who presents to hospital due to progressive weakness and confusion with medical diagnosis of Hepatic encephalopathy and a PMH significant for ETOH abuse, liver cirrhosis, cholelithiasis, HTN and recurring encephalopathy. Pt presents with improving confusion per charting but is still confused and limited in his mobility. Per pt report he was independent ambulating with use of cane and reaching for turcios while at home and was also being seen by outpatient physical therapy due to decreased balance. Pt lives at home with with 7 stairs to enter home (4+3) with R sided handrailing. Pt reports having shower chair at home and a handrail by his toilet to assist in his home mobility. Pt currently presents below his PLOF requiring SBA for bed mobility and supine to sit, Min A to perform sit to stand transfer, CtG with use of FWW for ambulation of 15' and has decreased safety/environmental awareness. pt is a high risk for falls due to his decreased balance. At this time recommending pt is D/Kvng to SNF via W/C van as he is a good candidate to improve his functional mobility. If patient is unable to be D/Kvng to SNF pt will require Home PT services and would benefit from prescription of a FWW. I have contacted Social Service and Case Managment for requesting temporary placement to SNF for rehab. (8) Urinary incontinence Impression: from overflow incontinence in face of BPH or confusion/dementia? Gallagher in place until skin heals. Qualifiers: Urinary Incontinence type: unspecified incontinence Qualified Code(s): R32 - Unspecified urinary incontinence (9) Hypokalemia Impression: supplement po and checked yesterday am and still low. Will increase to tid wm. This am he is nml at 3.5 (10) Nodule on liver Impression: that was present on 2017 US with the last admission and he was told to rafael w . I don't see another US in EMR Plan: US of liver done and nodule is not visualized. alpha protein pending.
[2018-12-12] MEDS: VANCOMYCIN INJ 1 GM, VANCOMYCIN INJ 250 MG in SODIUM CHLORIDE 0.9% 250 ML IV SCH (16:02)
[2018-12-13] MEDS: SODIUM CHLORIDE FLUSH 0.9% 10 ML SYRINGE IVP SCH ×3 (00:59→18:03)
[2018-12-13] MEDS: VANCOMYCIN INJ 1 GM, VANCOMYCIN INJ 250 MG in SODIUM CHLORIDE 0.9% 250 ML IV SCH (04:14)
[2018-12-13] MEDS: SODIUM CHLORIDE FLUSH 0.9% 10 ML SYRINGE IVP PRN ×3 (04:16→06:21)
[2018-12-13] MEDS: LACTULOSE 10 GM/15 ML BOTTLE PO SCH ×3 (09:28→18:03)
[2018-12-13] MEDS: NYSTATIN CREAM 15 GM TUBE TOP SCH ×2 (09:29→19:34)
[2018-12-13] MEDS: NYSTATIN POWDER 15 GM TOP SCH ×2 (09:29→19:34)
[2018-12-13] MEDS: SPIRONOLACTONE 25 MG TABLET PO SCH (09:30)
[2018-12-13] MEDS: MAGNESIUM OXIDE 400 MG TABLET PO SCH (09:30)
[2018-12-13] MEDS: rifAXIMin 550 MG TABLET PO SCH ×2 (09:30→20:31)
[2018-12-13] MEDS: MULTIVITAMIN W/MINERALS TABLET PO SCH (09:30)
[2018-12-13] MEDS: THIAMINE 100 MG TABLET PO SCH (09:30)
[2018-12-13] MEDS: ZINC SULFATE 220 MG CAPSULE PO SCH (09:30)
[2018-12-13] MEDS: POLYETHYLENE GLYCOL 3350 17 GM PACKET PO SCH (09:30)
[2018-12-13] MEDS: FAMOTIDINE 20 MG/2 ML VIAL IVP SCH ×2 (09:30→20:31)
[2018-12-13] MEDS: HEPARIN 5,000 UNIT/ML VIAL SUBQ SCH (09:40)
--- NOTE | 2018-12-13 12:24 | PROVIDER PROGRESS NOTE ---
Subjective - Prog Note Date Prog Note Date: 12/13/18 Prog Note Time: 12:22 - Subjective Pt reports feeling: No change Subjective: He has poor self insight. The patient actually feels that there is really nothing really wrong with him. He does not seem to acknowledge his cerebellar ataxia, psychomotor slowing, slurred speech. Memory loss.He is very pleasant, cooperative,, but again does not seem to understand his deficits. He denies chest pain, cough, shortness of breath. Acknowledges that he may be a little bit incontinent of urine, and incontinent of stool but feels that is not a problem. Current Medications - Current Medications Current Medications: Active Medications Famotidine (Pepcid) 20 mg IVP BID [facility] Last Admin: 12/13/18 09:30 Dose: 20 mg Heparin Sodium (Porcine) () 5,000 unit SUBQ BID [facility] Last Admin: 12/13/18 09:40 Dose: 5,000 unit Vancomycin HCl 1 gm/Vancomycin HCl 250 mg/ Sodium Chloride 250 mls @ 166.667 mls/hr IV Q12H [facility] Last Infusion: 12/13/18 06:22 Dose: Infused Lactulose (Lactulose) 30 gm PO TIDWM [facility] Last Admin: 12/13/18 09:28 Dose: 30 gm Lorazepam (Ativan Inj (Vial)) 2 mg IVP Q2HR PRN PRN Reason: CIWA>8 Last Admin: 12/13/18 04:16 Dose: 2 mg Magnesium Oxide (Mag Ox) 400 mg PO DAILYWM [facility] Last Admin: 12/13/18 09:30 Dose: 400 mg Mineral Oil (Cavilon) 1 applic TOP PRN PRN PRN Reason: Skin Care Multi-Ingredient Ointment (Zinc Oxide) 1 applic TOP PRN PRN PRN Reason: Skin Care Last Admin: 12/10/18 12:39 Dose: 1 applic Multivitamins/Minerals (Theragran M) 1 tab PO DAILYWM [facility] Last Admin: 12/13/18 09:30 Dose: 1 tab Nystatin (Nystop) 1 applic TOP BID [facility] Last Admin: 12/13/18 09:29 Dose: 1 applic Nystatin (Mycostatin Cream) 1 applic TOP BID [facility] Last Admin: 12/13/18 09:29 Dose: 1 applic Ondansetron HCl (Zofran Odt) 4 mg TL Q6HR PRN PRN Reason: Nausea / Vomiting Petrolatum (Vaseline) 5 gm TOP PRN PRN PRN Reason: Dry Lips Last Admin: 12/11/18 10:14 Dose: 5 gm Polyethylene Glycol (Miralax) 17 gm PO DAILY [facility] Last Admin: 12/13/18 09:30 Dose: 17 gm Rifaximin (Xifaxan) 550 mg PO BID [facility] Last Admin: 12/13/18 09:30 Dose: 550 mg Sodium Chloride (Normal Saline Flush 0.9%) 10 ml IVP PRN PRN PRN Reason: NEEDED PER PROVIDER ORDERS Last Admin: 12/13/18 06:21 Dose: 10 ml Sodium Chloride (Normal Saline Flush 0.9%) 10 ml IVP 0100,0900,1700 [facility] Last Admin: 12/13/18 09:30 Dose: 10 ml Spironolactone (Aldactone) 25 mg PO DAILY [facility] Last Admin: 12/13/18 09:30 Dose: 25 mg Thiamine HCl (Vitamin B-1) 100 mg PO DAILY [facility] Last Admin: 12/13/18 09:30 Dose: 100 mg Zinc Sulfate () 220 mg PO DAILY [facility] Last Admin: 12/13/18 09:30 Dose: 220 mg Multivitamin [Theragran] 1 each PO DAILY 12/10/18 Objective - Vital Signs/Intake & Output Reviewed Vital Signs: Yes Vital Signs: Vital Signs x48h Temp Pulse Resp BP Pulse Ox 12/13/18 08:18 37.0 C 75 18 121/53 L 95 Intake & Output: Intake & Output 12/10/18 12/11/18 12/12/18 12/13/18 23:59 23:59 23:59 23:59 Intake Total 6028.75 3112.25 3380 490 Output Total 2150 3150 4100 3000 Balance 3878.75 -37.75 -720 -2510 - Objective General Appearance: positive: No acute distress, Alert, Other (Thin male sitting up in chair. Again slurred speech, sometimes group home closing of eyes and midsentence, no tremulousness, no agitation.) Eyes Bilateral: positive: PERRL, EOMI ENT: positive: Pharynx nml (Except for poor dentition. Still slightly dry oral mucosa.) Neck: positive: No JVD. negative: Stiff neck, Carotid bruit Respiratory: positive: Chest non-tender. negative: Wheezes, Rales, Rhonchi Cardiovascular: positive: Regular rate & rhythm. negative: Gallop/S4, Friction rub Abdomen: positive: Non-tender, No organomegaly, Nml bowel sounds, No distention Skin: positive: Warm, Dry Extremities: positive: No pedal edema, Other (Decreased muscle mass of arms and legs) Neurologic/Psychiatric: positive: CN's nml (2-12), Disoriented to place, Disoriented to time, Slurred/abnml speech. negative: Motor nml (Cerebellar ataxia and asterixis, psychomotor slowing) - Lab Results Fish Bones: 12/12/18 06:00 12/12/18 06:40 ABX Reporting Has patient been on IV antibiotics over the past 48 hours?: Yes Sepsis Event Note (H) - Evaluation Current Stage of Sepsis: Ruled out Assessment/Plan - Problem List (1) Hepatic encephalopathy Impression: he received one dose of lactulose in the ER and ammonia level went up from there. Had another dose 12/10 am when redraw level done and higher than on admission. by 12/11 he had several doses and ammonia level still too high and he is still w affected speech and thought process. No evidence of GI bleed but does have infection as cause of decompensation. By 12/12 his ammonia level was normal but there is minimal improvement in his cognition, alertness, speech pattern, or balance. Still not really improved in spite of treatment. Plan: to continue lactulose, and treat infection. changed to inpatient status 12/10 evening. increased lactulose dose even further 12/12 and ammonia came down. Plan is for transfer to SNF for rehab then home (2) Contact dermatitis due to chemicals Impression: he has had urinary incontinence w his confusion and would let urine sit on his thighs causing a dermatitis and skin breakdown. Plan: wound consult done gallagher in place to continue for now until he is more alert for self hygeine. (3) Venous stasis dermatitis of both lower extremities Impression: check ARLEEN to make sure can do compression stockings. on abx and improved from admission to today with less edema and redness and almost at baseline. Day #4 Vancomycin, change to po (4) Cellulitis Impression: on abx and improved but needs wound care for his dressings. Day #4 Vancomycin. His blood cultures are negative. MRSA positive nares. Will stop IV vancomycin and transition to Bactrim double strength. Qualifiers: Site of cellulitis: extremity Site of cellulitis of extremity: lower extremity Laterality: unspecified laterality Qualified Code(s): L03.119 - Cellulitis of unspecified part of limb (5) Cirrhosis of liver with ascites Impression: not on meds at home. on rifaximin and spironolactone here. BP dropped in the morning of 12/10 but then came back up. Investigated records to see if he has varices and none documented. No betablocker for now. Qualifiers: Hepatic cirrhosis type: alcoholic cirrhosis Qualified Code(s): K70.31 - Alcoholic cirrhosis of liver with ascites (6) Macrocytosis Impression: Laboratory Tests 12/10/18 04:45 Vitamin B12 749 Folate 17.72 will give oral folate in a patient w hx of alcohol abuse. 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 If he needs placement or rehab will need PT eval. That has been ordered. In reviewing his admit from 2017, he appears to have worsed with cognitive deficit, ataxia, memory loss and now urinary incontinence. Per PT note: Alireza is a 58 year old male who presents to hospital due to progressive weakness and confusion with medical diagnosis of Hepatic encephalopathy and a PMH significant for ETOH abuse, liver cirrhosis, cholelithiasis, HTN and recurring encephalopathy. Pt presents with improving confusion per charting but is still confused and limited in his mobility. Per pt report he was independent ambulating with use of cane and reaching for turcios while at home and was also being seen by outpatient physical therapy due to decreased balance. Pt lives at home with with 7 stairs to enter home (4+3) with R sided handrailing. Pt reports having shower chair at home and a handrail by his toilet to assist in his home mobility. Pt currently presents below his PLOF requiring SBA for bed mobility and supine to sit, Min A to perform sit to stand transfer, CtG with use of FWW for ambulation of 15' and has decreased safety/environmental awareness. pt is a high risk for falls due to his decreased balance. At this time recommending pt is D/Kvng to SNF via W/C van as he is a good candidate to improve his functional mobility. If patient is unable to be D/Kvng to SNF pt will require Home PT services and would benefit from prescription of a FWW. 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 Pt able to walke 12 feet w/o assistive device but cruised heavily. Pt is still a moderate fall risk with staggard/ ataxic gait and overtly wide cardenas - pt would benefit from further therapies at SNF - [facility]. I have contacted Social Service and Case Managment for requesting temporary placement to SNF for rehab. They are looking at contracted facilities. (8) Urinary incontinence Impression: from overflow incontinence in face of BPH or confusion/dementia? Gallagher in place until skin heals. Qualifiers: Urinary Incontinence type: unspecified incontinence Qualified Code(s): R32 - Unspecified urinary incontinence (9) Hypokalemia Impression: supplement po and checked yesterday am and still low. Will increase to tid wm. 12/12 he is nml at 3.5 so I have stopped po tid dosing today to avoid hyperkalemia (10) Nodule on liver Impression: that was present on 2017 US with the last admission and he was told to fu w US. I don't see another US in EMR Plan: US of liver done and nodule is not visualized. alpha protein pending.
[2018-12-13] MEDS: SULFAMETH/TRIMETH DS 800/160 MG TABLET PO SCH (20:31)
[2018-12-14 05:22] LABS: CALCIUM 8.6 mg/dL (8.5-10.3); CREATININE 0.8 mg/dL (0.6-1.2)
[2018-12-14] MEDS: SODIUM CHLORIDE FLUSH 0.9% 10 ML SYRINGE IVP SCH ×3 (05:40→17:29)
[2018-12-14] MEDS: SODIUM CHLORIDE FLUSH 0.9% 10 ML SYRINGE IVP PRN (05:43)
[2018-12-14] MEDS: MULTIVITAMIN W/MINERALS TABLET PO SCH (09:01)
[2018-12-14] MEDS: rifAXIMin 550 MG TABLET PO SCH ×2 (09:01→20:20)
[2018-12-14] MEDS: THIAMINE 100 MG TABLET PO SCH (09:01)
[2018-12-14] MEDS: SULFAMETH/TRIMETH DS 800/160 MG TABLET PO SCH ×2 (09:01→20:20)
[2018-12-14] MEDS: ZINC SULFATE 220 MG CAPSULE PO SCH (09:02)
[2018-12-14] MEDS: POLYETHYLENE GLYCOL 3350 17 GM PACKET PO SCH (09:02)
[2018-12-14] MEDS: FAMOTIDINE 20 MG/2 ML VIAL IVP SCH (09:02)
[2018-12-14] MEDS: SPIRONOLACTONE 25 MG TABLET PO SCH (09:02)
[2018-12-14] MEDS: LACTULOSE 10 GM/15 ML BOTTLE PO SCH ×3 (09:04→17:30)
[2018-12-14] MEDS: NYSTATIN POWDER 15 GM TOP SCH ×2 (09:05→20:20)
[2018-12-14] MEDS: MAGNESIUM OXIDE 400 MG TABLET PO SCH (09:09)
[2018-12-14] MEDS: NYSTATIN CREAM 15 GM TUBE TOP SCH ×2 (09:09→20:21)
--- NOTE | 2018-12-14 12:34 | PROVIDER PROGRESS NOTE ---
Subjective - Prog Note Date Prog Note Date: 12/14/18 Prog Note Time: 12:40 - Subjective Pt reports feeling: No change Subjective: He fell yesterday as already stated in the note is a late add-on. Since that time no further falls. No change in mental status and overall condition. He has been cooperating with our physical therapist. Eating will be given. Cooperative with nurses with regards to lactulose even though he hates taking that medicine. Current Medications - Current Medications Current Medications: Active Medications Famotidine (Pepcid) 20 mg IVP BID [facility] Last Admin: 12/14/18 09:02 Dose: 20 mg Lactulose (Lactulose) 30 gm PO TIDWM [facility] Last Admin: 12/14/18 12:08 Dose: 30 gm Magnesium Oxide (Mag Ox) 400 mg PO DAILYWM [facility] Last Admin: 12/14/18 09:09 Dose: 400 mg Mineral Oil (Cavilon) 1 applic TOP PRN PRN PRN Reason: Skin Care Multi-Ingredient Ointment (Zinc Oxide) 1 applic TOP PRN PRN PRN Reason: Skin Care Last Admin: 12/10/18 12:39 Dose: 1 applic Multivitamins/Minerals (Theragran M) 1 tab PO DAILYWM [facility] Last Admin: 12/14/18 09:01 Dose: 1 tab Nystatin (Nystop) 1 applic TOP BID [facility] Last Admin: 12/14/18 09:05 Dose: 1 applic Nystatin (Mycostatin Cream) 1 applic TOP BID [facility] Last Admin: 12/14/18 09:09 Dose: 1 applic Ondansetron HCl (Zofran Odt) 4 mg TL Q6HR PRN PRN Reason: Nausea / Vomiting Petrolatum (Vaseline) 5 gm TOP PRN PRN PRN Reason: Dry Lips Last Admin: 12/11/18 10:14 Dose: 5 gm Polyethylene Glycol (Miralax) 17 gm PO DAILY [facility] Last Admin: 12/14/18 09:02 Dose: 17 gm Rifaximin (Xifaxan) 550 mg PO BID [facility] Last Admin: 12/14/18 09:01 Dose: 550 mg Sodium Chloride (Normal Saline Flush 0.9%) 10 ml IVP PRN PRN PRN Reason: NEEDED PER PROVIDER ORDERS Last Admin: 12/14/18 05:43 Dose: 10 ml Sodium Chloride (Normal Saline Flush 0.9%) 10 ml IVP 0100,0900,1700 [facility] Last Admin: 12/14/18 09:02 Dose: 10 ml Spironolactone (Aldactone) 25 mg PO DAILY [facility] Last Admin: 12/14/18 09:02 Dose: 25 mg Thiamine HCl (Vitamin B-1) 100 mg PO DAILY [facility] Last Admin: 12/14/18 09:01 Dose: 100 mg Trimethoprim/Sulfamethoxazole (Bactrim Ds 800/160) 1 tab PO BID [facility] Last Admin: 12/14/18 09:01 Dose: 1 tab Zinc Sulfate () 220 mg PO DAILY [facility] Last Admin: 12/14/18 09:02 Dose: 220 mg Multivitamin [Theragran] 1 each PO DAILY 12/10/18 Objective - Vital Signs/Intake & Output Reviewed Vital Signs: Yes Vital Signs: Vital Signs x48h Temp Pulse Resp BP Pulse Ox 12/14/18 08:00 37.4 C 72 18 109/77 93 Intake & Output: Intake & Output 12/11/18 12/12/18 12/13/18 12/14/18 23:59 23:59 23:59 23:59 Intake Total 3112.25 3380 1248 90 Output Total 3150 4100 3705 1725 Balance -37.75 -720 -3727 -1635 - Objective General Appearance: positive: No acute distress, Other (He speaks with a slurred speech, eyes at half mast,) Eyes Bilateral: positive: PERRL Eyes: OU Scleral icterus ENT: positive: Pharynx nml Neck: negative: Stiff neck, Carotid bruit Respiratory: positive: Chest non-tender. negative: Wheezes, Rales, Rhonchi Cardiovascular: positive: Regular rate & rhythm. negative: Gallop/S4, Friction rub Abdomen: positive: Nml bowel sounds, No distention. negative: Guarding, Rebound Skin: positive: Warm, Dry Extremities: positive: Full ROM, Pedal edema, Other (The right leg is the violaceous discoloration of venous stasis. It has 1+ edema. The discoloration goes up to three fourths of the mart and calf. Then it fades to dry flaking skin for the latter part before the knee. The left leg has the same violaceous discoloration and dry flaking skin at the top of that but it is 2+ edema. It is covered in bandages for the venous stasis breakdown of the skin. Overall, there is much less edema and redness and heat of the skin as the cellulitis has been treated and the wounds have been taken care of. He now has a new abrasion just underneath the left knee from where he fell last night. There is no cellulitis there. The abrasion is already healing.) Neurologic/Psychiatric: positive: CN's nml (2-12), Disoriented to place, Dis oriented to time, Weakness, Slurred/abnml speech (Slurred speech, diminished cognition, diminished memory). negative: Motor nml (Ataxia, asterixis) - Lab Results Fish Bones: 12/12/18 06:00 12/14/18 04:48 Other Labs: Lab Results x24hrs 12/14/18 12/12/18 Range/Units 04:48 05:00 Sodium 138 (135-145) mmol/L Potassium 4.0 (3.5-5.0) mmol/L Chloride 107 (101-111) mmol/L Carbon Dioxide 24 (21-32) mmol/L Anion Gap 7.0 (6-13) BUN 8 (6-20) mg/dL Creatinine 0.8 (0.6-1.2) mg/dL Estimated GFR (MDRD) 99 (>89) Glucose 81 (70-100) mg/dL Calcium 8.6 (8.5-10.3) mg/dL Tumor Marker AFP 1.2 (<6.1) ng/mL ABX Reporting Has patient been on IV antibiotics over the past 48 hours?: Yes Sepsis Event Note (H) - Evaluation Current Stage of Sepsis: Ruled out Assessment/Plan - Problem List (1) Hepatic encephalopathy Impression: Type C. He was started on lactulose on admission. It was surprising that his ammonia level went up but not down on that first day. We have increase his l actulose and his lactulose is now down to normal since December 12 but he still significantly encephalopathic. Psychomotor slowing, slurred speech. Lack of memory. Really does not remember from moment to moment what is being said. He can listen to conversation, fix on a topic, and track it for a few moments but then he loses the thread. As for the cause of acute deterioration, it is difficult to say. I do not know what triggered this certain episode. I think it could be infection, and may be fluid shift with dehydration. He did stop drinking 2 weeks ago. He has not had any recent surgery, has not been hypoxic, is not having a GI bleed. He has been ready to go since 12/12. However his ins urance plan is negotiating with the assisted facility about payment. We do not know when he will go. We hope he goes tomorrow to the assisted facility which would make it for avoidable days tomorrow. Plan: to continue lactulose, and treat infection. changed to inpatient status 12/10 evening. increased lactulose dose even further 12/12 and ammonia came down. Plan is for transfer to SNF for rehab then home. He has been accepted as of 12/11 (2) Contact dermatitis due to chemicals Impression: he has had urinary incontinence w his confusion and would let urine sit on his thighs causing a dermatitis and skin breakdown. Plan: wound consult done gallagher in place to continue for now until he is more alert for self hygeine. (3) Venous stasis dermatitis of both lower extremities Impression: Improving. Seen by Wound Care Consult. Right and left ankle brachial indices are 1.2 for both legs. So he can safely do compression. on abx and improved from admission to today with less edema and redness and almo st at baseline. s/p Day #4 Vancomycin, change to po bactrim 3 and today is Day #1. Plan for a total of 7 days of abx. (4) Cellulitis Impression: on abx and improved but needs wound care for his dressings. s/p Day #4 Vancomycin and changed to po bactrim on 12/13.To stay on it until 3 am dose. His blood cultures are negative. MRSA positive nares. Qualifiers: Site of cellulitis: extremity Site of cellulitis of extremity: lower extremity Laterality: unspecified laterality Qualified Code(s): L03.119 - Cellulitis of unspecified part of limb (5) Cirrhosis of liver with ascites Impression: Abdominal ultrasound shows hepatofugal portal vein flow. Multiple gallstones with mild wall thickening. No tenderness over the gallbladder. Pancreas appears normal. Kidneys have bilateral nonobstructing small stones. Left kidney has a cyst is 2.8 cm. A heterogeneous fatty liver. A previous 4 mm nodule seen on another admission is no longer present. He was not on meds at home. On rifaximin and spironolactone here. BP dropped in the morning of 12/10 but then came back up. Investigated records to see if he has varices and none documented. No betablocker for now. He was 150's systolic yesterday and this am 109 systolic with pulse in70's. Will add starting this evening. Qualifiers: Hepatic cirrhosis type: alcoholic cirrhosis Qualified Code(s): K70.31 - Alcoholic cirrhosis of liver with ascites (6) Macrocytosis Impression: Laboratory Tests 12/10/18 04:45 Vitamin B12 749 Folate 17.72 will give oral folate in a patient w hx of alcohol abuse. 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 If he needs placement or rehab will need PT eval. That has been ordered. In reviewing his admit from 2017, he appears to have worsed with cognitive deficit, ataxia, memory loss and now urinary incontinence. Per PT note: Alireza is a 58 year old male who presents to hospital due to progressive weakness and confusion with medical diagnosis of Hepatic encephalopathy and a PMH significant for ETOH abuse, liver cirrhosis, cholelithiasis, HTN and recurring encephalopathy. Pt presents with improving confusion per charting but is still confused and limited in his mobility. Per pt report he was independent ambulating with use of cane and reaching for turcios while at home and was also being seen by outpatient physical therapy due to decreased balance. Pt lives at home with with 7 stairs to enter home (4+3) with R sided handrailing. Pt reports having shower chair at home and a handrail by his toilet to assist in his home mobility. Pt currently presents below his PLOF requiring SBA for bed mobility and supine to sit, Min A to perform sit to stand transfer, CtG with use of FWW for ambulation of 15' and has decreased safety/environmental awareness. pt is a high risk for falls due to his decreas ed balance. At this time recommending pt is D/Kvng to SNF via W/C van as he is a good candidate to improve his functional mobility. If patient is unable to be D/Kvng to SNF pt will require Home PT services and would benefit from prescription of a FWW. 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 Pt able to walke 12 feet w/o assistive device but cruised heavily. Pt is still a moderate fall risk with staggard/ ataxic gait and overtly wide cardenas - pt would benefit from further therapies at SNF [facility]. I have contacted Social Service and Case Managment for requesting temporary placement to SNF for rehab. They are looking at contracted facilities. (8) Urinary incontinence Impression: from overflow incontinence in face of BPH or confusion/dementia? Gallagher in place until skin heals. Qualifiers: Urinary Incontinence type: unspecified incontinence Qualified Code(s): R32 - Unspecified urinary incontinence (9) Hypokalemia Impression: supplement po and checked yesterday am and still low. I increased to tid wm. 12/12 he is nml at 3.5 so I have stopped po tid dosing 12/13 to avoid hyperkalemia (10) Nodule on liver Impression: that was present on 2017 US with the last admission and he was told to fu w US. I don't see another US in EMR Plan: US of liver done and nodule is not visualized. alpha protein pending.
[2018-12-14 15:52] LABS: VANCOMYCIN,TROUGH 5.7 ug/mL (10.0-20.0)
[2018-12-14] MEDS: FAMOTIDINE 20 MG TABLET PO SCH (20:20)
[2018-12-14] MEDS: PROPRANOLOL 10 MG TABLET PO SCH (20:20)
[2018-12-14] MEDS ORDERED: METOPROLOL TARTRATE 25 MG TABLET PO SCH (21:00)
[2018-12-15] MEDS: SODIUM CHLORIDE FLUSH 0.9% 10 ML SYRINGE IVP SCH ×3 (06:38→16:21)
[2018-12-15] MEDS: FAMOTIDINE 20 MG TABLET PO SCH ×2 (08:32→21:45)
[2018-12-15] MEDS: SPIRONOLACTONE 25 MG TABLET PO SCH (08:32)
[2018-12-15] MEDS: MULTIVITAMIN W/MINERALS TABLET PO SCH (08:32)
[2018-12-15] MEDS: THIAMINE 100 MG TABLET PO SCH (08:32)
[2018-12-15] MEDS: PROPRANOLOL 10 MG TABLET PO SCH ×2 (08:32→21:45)
[2018-12-15] MEDS: MAGNESIUM OXIDE 400 MG TABLET PO SCH (08:33)
[2018-12-15] MEDS: SULFAMETH/TRIMETH DS 800/160 MG TABLET PO SCH ×2 (08:33→21:45)
[2018-12-15] MEDS: rifAXIMin 550 MG TABLET PO SCH ×2 (08:33→21:45)
[2018-12-15] MEDS: ZINC SULFATE 220 MG CAPSULE PO SCH (08:33)
[2018-12-15] MEDS: LACTULOSE 10 GM/15 ML BOTTLE PO SCH ×3 (08:34→17:37)
[2018-12-15] MEDS: POLYETHYLENE GLYCOL 3350 17 GM PACKET PO SCH (08:37)
[2018-12-15] MEDS: NYSTATIN CREAM 15 GM TUBE TOP SCH ×2 (08:37→21:46)
[2018-12-15] MEDS: NYSTATIN POWDER 15 GM TOP SCH ×2 (08:37→21:45)
--- NOTE | 2018-12-15 16:41 | PROVIDER PROGRESS NOTE ---
Assessment/Plan - Problem List (1) Hepatic encephalopathy Assessment/Plan: He was never in withdrawal during this admission, therefore will cancel the CIWA protocol, which means he was never at a CIWA level or needing Ativan. Continue monittoring Ammonia level and manageing with Lactulose. (2) Cirrhosis of liver with ascites Qualifiers: Hepatic cirrhosis type: alcoholic cirrhosis Qualified Code(s): K70.31 - Alcoholic cirrhosis of liver with ascites Assessment/Plan: Stable (3) Cerebellar ataxia Assessment/Plan: PT underway. he will need DCh to a SNF. (4) Cellulitis Assessment/Plan: Pt on empiric antibiotics. Await cultures to adjust meds if needed. (5) Venous stasis dermatitis of both lower extremities Assessment/Plan: Stable (6) Macrocytic anemia Assessment/Plan: Stable - Current Meds Current Meds: Current Medications Generic Name Dose Route Start Last Admin Trade Name Freq PRN Reason Stop Dose Admin Famotidine 20 mg 12/14/18 21:00 12/15/18 08:32 Pepcid PO 20 mg BID ITZ Administration Lactulose 40 gm 12/15/18 08:00 12/15/18 11:58 Lactulose PO 40 gm TIDWM ITZ Administration Magnesium Oxide 400 mg 12/10/18 08:00 12/15/18 08:33 Mag Ox PO 400 mg DAILYWM ITZ Administration Multi-Ingredient Ointment 1 applic 12/10/18 07:40 12/10/18 12:39 Zinc Oxide TOP 1 applic PRN PRN Administration Skin Care Multivitamins/Minerals 1 tab 12/11/18 12:00 12/15/18 08:32 Theragran M PO 1 tab DAILYWM ITZ Administration Nystatin 1 applic 12/10/18 11:00 12/15/18 08:37 Nystop TOP 1 applic BID ITZ Administration Nystatin 1 applic 12/10/18 11:00 12/15/18 08:37 Mycostatin Cream TOP 1 applic BID ITZ Administration Petrolatum 5 gm 12/10/18 11:02 12/11/18 10:14 Vaseline TOP 5 gm PRN PRN Administration Dry Lips Polyethylene Glycol 17 gm 12/10/18 09:00 12/15/18 08:37 Miralax PO Not Given DAILY ITZ Propranolol HCl 10 mg 12/14/18 21:00 12/15/18 08:32 Inderal PO 10 mg BID ITZ Administration Rifaximin 550 mg 12/09/18 23:45 12/15/18 08:33 Xifaxan PO 550 mg BID IZT Administration Sodium Chloride 10 ml 12/09/18 23:26 12/14/18 05:43 Normal Saline Flush 0.9% IVP 10 ml PRN PRN Administration NEEDED PER PROVIDER ORDERS Sodium Chloride 10 ml 12/10/18 01:00 12/15/18 16:21 Normal Saline Flush 0.9% IVP Not Given 0100,0900,1700 [facility] Spironolactone 25 mg 12/10/18 09:00 12/15/18 08:32 Aldactone PO 25 mg DAILY ITZ Administration Thiamine HCl 100 mg 12/11/18 12:00 12/15/18 08:32 Vitamin B-1 PO 100 mg DAILY ITZ Administration Trimethoprim/Sulfamethoxazole 1 tab 12/13/18 21:00 12/15/18 08:33 Bactrim Ds 800/160 PO 1 tab BID ITZ Administration Zinc Sulfate 220 mg 12/11/18 12:00 12/15/18 08:33 PO 220 mg DAILY ITZ Administration - Lab Result Fish Bone Diagrams: 12/12/18 06:00 12/14/18 04:48 Subjective - Subjective Patient Reports: No Complaints, Other (He told me he is "needing to go to work".) Objective Vital Signs: Vital Signs - 24 hr 12/15/18 12/15/18 12/15/18 00:00 08:08 16:00 Temperature 37.3 C 37.4 C 36.7 C Heart Rate [ 58 L 54 L 83 Brachial] Respiratory 18 20 20 Rate Blood Pressure 137/62 H 109/63 136/72 H [Right Brachial artery] O2 Saturation 97 96 100 Oxygen O2 Source Room air I&O (Last 24 Hrs): Intake and Output Totals x24h 12/13/18 12/14/18 12/15/18 23:59 23:59 23:59 Intake Total 7115 400 9638 Output Total 4136 2388 2050 Balance -5064 -7404 -610 General: No acute distress HEENT: Mucous membr. moist/pink Neck: Supple Neuro: Disoriented Cardiovascular: Regular rate Respiratory: No respiratory distress Abdomen: Soft Extremities: No edema - Results Results: Laboratory Results WBC 5.7 x10^3/uL (4.8-10.8) 12/12/18 06:00 RBC 3.89 10^6/uL (4.70-6.10) L 12/12/18 06:00 Hgb 12.5 g/dL (14.0-18.0) L 12/12/18 06:00 Hct 37.5 % (42.0-52.0) L 12/12/18 06:00 MCV 96.4 fL (80.0-94.0) H 12/12/18 06:00 MCH 32.2 pg (27.0-31.0) H 12/12/18 06:00 MCHC 33.4 g/dL (32.0-36.0) 12/12/18 06:00 RDW 13.3 % (12.0-15.0) 12/12/18 06:00 Plt Count 144 10^3/uL (130-450) 12/12/18 06:00 MPV 9.1 fL (7.4-11.4) 12/12/18 06:00 Neut # (Auto) 3.2 10^3/uL (1.5-6.6) 12/12/18 06:00 Lymph # (Auto) 1.6 10^3/uL (1.5-3.5) 12/12/18 06:00 [place] # (Auto) 0.6 10^3/uL (0.0-1.0) 12/12/18 06:00 Eos # (Auto) 0.3 10^3/uL (0.0-0.7) 12/12/18 06:00 Baso # (Auto) 0.0 10^3/uL (0.0-0.1) 12/12/18 06:00 Absolute Nucleated RBC 0.00 x10^3/uL 12/12/18 06:00 Nucleated RBC % 0.0 /100WBC 12/12/18 06:00 PT 16.0 secs (9.9-12.6) H 12/10/18 04:45 INR 1.4 (0.8-1.2) H 12/10/18 04:45 Sodium 138 mmol/L (135-145) 12/14/18 04:48 Potassium 4.0 mmol/L (3.5-5.0) 12/14/18 04:48 Chloride 107 mmol/L (101-111) 12/14/18 04:48 Carbon Dioxide 24 mmol/L (21-32) 12/14/18 04:48 Anion Gap 7.0 (6-13) 12/14/18 04:48 BUN 8 mg/dL (6-20) 12/14/18 04:48 Creatinine 0.8 mg/dL (0.6-1.2) 12/14/18 04:48 Estimated GFR (MDRD) 99 (>89) 12/14/18 04:48 Glucose 81 mg/dL (70-100) 12/14/18 04:48 Lactic Acid 0.8 mmol/L (0.5-2.2) 12/09/18 23:07 Calcium 8.6 mg/dL (8.5-10.3) 12/14/18 04:48 Phosphorus 2.5 mg/dL (2.5-4.6) 12/09/18 23:07 Magnesium 1.5 mg/dL (1.7-2.8) L 12/09/18 23:07 Total Bilirubin 1.8 mg/dL (0.2-1.0) H 12/10/18 04:45 AST 25 IU/L (10-42) 12/10/18 04:45 ALT 17 IU/L (10-60) 12/10/18 04:45 Alkaline Phosphatase 98 IU/L (42-121) 12/10/18 04:45 Ammonia 68.5 umol/L (7-35) H 12/15/18 05:57 Total Protein 5.1 g/dL (6.7-8.2) L 12/10/18 04:45 Albumin 2.2 g/dL (3.2-5.5) L 12/10/18 04:45 Globulin 2.9 g/dL (2.1-4.2) 12/10/18 04:45 Albumin/Globulin Ratio 0.8 (1.0-2.2) L 12/10/18 04:45 Lipase 51 U/L (22-51) 12/09/18 23:07 Tumor Marker AFP 1.2 ng/mL (<6.1) 12/12/18 05:00 Vitamin B12 749 pg/mL (180-914) 12/10/18 04:45 Folate 17.72 ng/mL (5.90 - >24.8) 12/10/18 04:45 Nasal Screen MRSA (PCR) POSITIVE (NEGATIVE) A* 12/10/18 02:10 Last Dose Date UNKNOWN 12/14/18 15:30 Last Dose Time UNKNOWN 12/14/18 15:30 Vancomycin Trough 5.7 ug/mL (10.0-20.0) L 12/14/18 15:30 Ethyl Alcohol < 5.0 mg/dL 12/09/18 23:07 Sepsis Event Note (H) - Evaluation Current Stage of Sepsis: Ruled out
[2018-12-16] MEDS: SODIUM CHLORIDE FLUSH 0.9% 10 ML SYRINGE IVP SCH ×3 (02:15→16:21)
[2018-12-16] MEDS: LACTULOSE 10 GM/15 ML BOTTLE PO SCH ×3 (08:08→16:24)
[2018-12-16] MEDS: SPIRONOLACTONE 25 MG TABLET PO SCH (08:09)
[2018-12-16] MEDS: THIAMINE 100 MG TABLET PO SCH (08:09)
[2018-12-16] MEDS: ZINC SULFATE 220 MG CAPSULE PO SCH (08:09)
[2018-12-16] MEDS: MAGNESIUM OXIDE 400 MG TABLET PO SCH (08:09)
[2018-12-16] MEDS: SULFAMETH/TRIMETH DS 800/160 MG TABLET PO SCH ×2 (08:10→20:43)
[2018-12-16] MEDS: rifAXIMin 550 MG TABLET PO SCH ×2 (08:10→20:43)
[2018-12-16] MEDS: FAMOTIDINE 20 MG TABLET PO SCH ×2 (08:10→20:43)
[2018-12-16] MEDS: MULTIVITAMIN W/MINERALS TABLET PO SCH (08:10)
[2018-12-16] MEDS: PROPRANOLOL 10 MG TABLET PO SCH (08:11)
[2018-12-16] MEDS: NYSTATIN POWDER 15 GM TOP SCH ×2 (08:12→20:45)
[2018-12-16] MEDS: NYSTATIN CREAM 15 GM TUBE TOP SCH ×2 (08:12→20:45)
[2018-12-16] MEDS: POLYETHYLENE GLYCOL 3350 17 GM PACKET PO SCH (08:14)
--- NOTE | 2018-12-16 15:44 | PROVIDER PROGRESS NOTE ---
Assessment/Plan - Problem List (1) Hepatic encephalopathy Assessment/Plan: Continue Lactulose, which has helped his confusion. (2) Cirrhosis of liver with ascites Qualifiers: Hepatic cirrhosis type: alcoholic cirrhosis Qualified Code(s): K70.31 - Alcoholic cirrhosis of liver with ascites Assessment/Plan: I suspect he has Wernicke's encephalopathy, given the description of his functioning and history. (3) Cerebellar ataxia Assessment/Plan: I suspect he has Wernicke's encephalopathy, given the description of his functioning and history. He will need a SNF for PT rehab. (4) Cellulitis Qualifiers: Site of cellulitis of extremity: lower extremity Assessment/Plan: Improving. Continue antibiotics. (5) Venous stasis dermatitis of both lower extremities Assessment/Plan: Stable. Continue present management. (6) Macrocytic anemia Assessment/Plan: Stable. Monitor CBC intermittently. - Current Meds Current Meds: Current Medications Generic Name Dose Route Start Last Admin Trade Name Freq PRN Reason Stop Dose Admin Famotidine 20 mg 12/14/18 21:00 12/16/18 08:10 Pepcid PO 20 mg BID ITZ Administration Lactulose 40 gm 12/15/18 08:00 12/16/18 12:01 Lactulose PO 40 gm TIDWM ITZ Administration Magnesium Oxide 400 mg 12/10/18 08:00 12/16/18 08:09 Mag Ox PO 400 mg DAILYWM ITZ Administration Multi-Ingredient Ointment 1 applic 12/10/18 07:40 12/10/18 12:39 Zinc Oxide TOP 1 applic PRN PRN Administration Skin Care Multivitamins/Minerals 1 tab 12/11/18 12:00 12/16/18 08:10 Theragran M PO 1 tab DAILYWM ITZ Administration Nystatin 1 applic 12/10/18 11:00 12/16/18 08:12 Nystop TOP 1 applic BID ITZ Administration Nystatin 1 applic 12/10/18 11:00 12/16/18 08:12 Mycostatin Cream TOP 1 applic BID ITZ Administration Petrolatum 5 gm 12/10/18 11:02 12/11/18 10:14 Vaseline TOP 5 gm PRN PRN Administration Dry Lips Polyethylene Glycol 17 gm 12/10/18 09:00 12/16/18 08:14 Miralax PO Not Given DAILY ITZ Propranolol HCl 10 mg 12/14/18 21:00 12/16/18 08:11 Inderal PO 10 mg BID ITZ Administration Rifaximin 550 mg 12/09/18 23:45 12/16/18 08:10 Xifaxan PO 550 mg BID ITZ Administration Sodium Chloride 10 ml 12/09/18 23:26 12/14/18 05:43 Normal Saline Flush 0.9% IVP 10 ml PRN PRN Administration NEEDED PER PROVIDER ORDERS Sodium Chloride 10 ml 12/10/18 01:00 12/16/18 08:14 Normal Saline Flush 0.9% IVP Not Given 0100,0900,1700 ITZ Spironolactone 25 mg 12/10/18 09:00 12/16/18 08:09 Aldactone PO 25 mg DAILY ITZ Administration Thiamine HCl 100 mg 12/11/18 12:00 12/16/18 08:09 Vitamin B-1 PO 100 mg DAILY ITZ Administration Trimethoprim/Sulfamethoxazole 1 tab 12/13/18 21:00 12/16/18 08:10 Bactrim Ds 800/160 PO 1 tab BID ITZ Administration Zinc Sulfate 220 mg 12/11/18 12:00 12/16/18 08:09 PO 220 mg DAILY ITZ Administration - Lab Result Fish Bone Diagrams: 12/12/18 06:00 12/14/18 04:48 - Additional Planning My Orders: My Active Orders 12/17/18 05:00 AMMONIA [CHEM] DAILYLAB CMP [COMPREHENSIVE METABOLIC PANEL] [CHEM] DAILYLAB 12/18/18 05:00 AMMONIA [CHEM] DAILYLAB CMP [COMPREHENSIVE METABOLIC PANEL] [CHEM] DAILYLAB 12/19/18 05:00 AMMONIA [CHEM] DAILYLAB CMP [COMPREHENSIVE METABOLIC PANEL] [CHEM] DAILYLAB 12/20/18 05:00 AMMONIA [CHEM] DAILYLAB CMP [COMPREHENSIVE METABOLIC PANEL] [CHEM] DAILYLAB Subjective - Subjective Nursing Reports: Other (More) Objective Vital Signs: Vital Signs - 24 hr 12/15/18 12/16/18 12/16/18 16:00 00:00 10:48 Temperature 36.7 C 36.6 C 36.4 C L Heart Rate [ 83 100 52 L Brachial] Respiratory 20 18 17 Rate Blood Pressure 136/72 H 124/68 105/48 L [Right Brachial artery] O2 Saturation 100 100 99 Oxygen O2 Source Room air I&O (Last 24 Hrs): Intake and Output Totals x24h 12/14/18 12/15/18 12/16/18 23:59 23:59 23:59 Intake Total 556 1660 700 Output Total 3573 5759 2250 Balance -3019 -1040 -1550 General: Alert HEENT: Mucous membr. moist/pink, Other (Good dentition) Neck: Supple, No JVD Neuro: Disoriented, Other (Slurred speech. Memory poor.) Cardiovascular: Regular rate Respiratory: No respiratory distress Abdomen: Soft Extremities: No edema - Results Results: Laboratory Results WBC 5.7 x10^3/uL (4.8-10.8) 12/12/18 06:00 RBC 3.89 10^6/uL (4.70-6.10) L 12/12/18 06:00 Hgb 12.5 g/dL (14.0-18.0) L 12/12/18 06:00 Hct 37.5 % (42.0-52.0) L 12/12/18 06:00 MCV 96.4 fL (80.0-94.0) H 12/12/18 06:00 MCH 32.2 pg (27.0-31.0) H 12/12/18 06:00 MCHC 33.4 g/dL (32.0-36.0) 12/12/18 06:00 RDW 13.3 % (12.0-15.0) 12/12/18 06:00 Plt Count 144 10^3/uL (130-450) 12/12/18 06:00 MPV 9.1 fL (7.4-11.4) 12/12/18 06:00 Neut # (Auto) 3.2 10^3/uL (1.5-6.6) 12/12/18 06:00 Lymph # (Auto) 1.6 10^3/uL (1.5-3.5) 12/12/18 06:00 [place] # (Auto) 0.6 10^3/uL (0.0-1.0) 12/12/18 06:00 Eos # (Auto) 0.3 10^3/uL (0.0-0.7) 12/12/18 06:00 Baso # (Auto) 0.0 10^3/uL (0.0-0.1) 12/12/18 06:00 Absolute Nucleated RBC 0.00 x10^3/uL 12/12/18 06:00 Nucleated RBC % 0.0 /100WBC 12/12/18 06:00 PT 16.0 secs (9.9-12.6) H 12/10/18 04:45 INR 1.4 (0.8-1.2) H 12/10/18 04:45 Sodium 138 mmol/L (135-145) 12/14/18 04:48 Potassium 4.0 mmol/L (3.5-5.0) 12/14/18 04:48 Chloride 107 mmol/L (101-111) 12/14/18 04:48 Carbon Dioxide 24 mmol/L (21-32) 12/14/18 04:48 Anion Gap 7.0 (6-13) 12/14/18 04:48 BUN 8 mg/dL (6-20) 12/14/18 04:48 Creatinine 0.8 mg/dL (0.6-1.2) 12/14/18 04:48 Estimated GFR (MDRD) 99 (>89) 12/14/18 04:48 Glucose 81 mg/dL (70-100) 12/14/18 04:48 Lactic Acid 0.8 mmol/L (0.5-2.2) 12/09/18 23:07 Calcium 8.6 mg/dL (8.5-10.3) 12/14/18 04:48 Phosphorus 2.5 mg/dL (2.5-4.6) 12/09/18 23:07 Magnesium 1.5 mg/dL (1.7-2.8) L 12/09/18 23:07 Total Bilirubin 1.8 mg/dL (0.2-1.0) H 12/10/18 04:45 AST 25 IU/L (10-42) 12/10/18 04:45 ALT 17 IU/L (10-60) 12/10/18 04:45 Alkaline Phosphatase 98 IU/L (42-121) 12/10/18 04:45 Ammonia 68.5 umol/L (7-35) H 12/15/18 05:57 Total Protein 5.1 g/dL (6.7-8.2) L 12/10/18 04:45 Albumin 2.2 g/dL (3.2-5.5) L 12/10/18 04:45 Globulin 2.9 g/dL (2.1-4.2) 12/10/18 04:45 Albumin/Globulin Ratio 0.8 (1.0-2.2) L 12/10/18 04:45 Lipase 51 U/L (22-51) 12/09/18 23:07 Tumor Marker AFP 1.2 ng/mL (<6.1) 12/12/18 05:00 Vitamin B12 749 pg/mL (180-914) 12/10/18 04:45 Folate 17.72 ng/mL (5.90 - >24.8) 12/10/18 04:45 Nasal Screen MRSA (PCR) POSITIVE (NEGATIVE) A* 12/10/18 02:10 Last Dose Date UNKNOWN 12/14/18 15:30 Last Dose Time UNKNOWN 12/14/18 15:30 Vancomycin Trough 5.7 ug/mL (10.0-20.0) L 12/14/18 15:30 Ethyl Alcohol < 5.0 mg/dL 12/09/18 23:07 Sepsis Event Note (H) - Evaluation Current Stage of Sepsis: Ruled out
[2018-12-16] MEDS: MIN OIL/DIMETHICON/COCONUT OIL 92 GM TUBE TOP PRN (15:55)
[2018-12-17] MEDS: SODIUM CHLORIDE FLUSH 0.9% 10 ML SYRINGE IVP SCH ×3 (02:00→17:51)
[2018-12-17 06:46] LABS: ALBUMIN 2.3 g/dL (3.2-5.5); ALBUMIN/GLOBULIN RATIO 0.7 (1.0-2.2); BILIRUBIN,TOTAL 0.8 mg/dL (0.2-1.0); CREATININE 1.1 mg/dL (0.6-1.2); TOTAL PROTEIN 5.4 g/dL (6.7-8.2)
[2018-12-17] MEDS: MAGNESIUM OXIDE 400 MG TABLET PO SCH (08:33)
[2018-12-17] MEDS: ZINC SULFATE 220 MG CAPSULE PO SCH (08:34)
[2018-12-17] MEDS: FAMOTIDINE 20 MG TABLET PO SCH ×2 (08:34→21:31)
[2018-12-17] MEDS: SULFAMETH/TRIMETH DS 800/160 MG TABLET PO SCH ×2 (08:34→21:31)
[2018-12-17] MEDS: rifAXIMin 550 MG TABLET PO SCH ×2 (08:34→21:31)
[2018-12-17] MEDS: THIAMINE 100 MG TABLET PO SCH (08:35)
[2018-12-17] MEDS: MULTIVITAMIN W/MINERALS TABLET PO SCH (08:35)
[2018-12-17] MEDS: SPIRONOLACTONE 25 MG TABLET PO SCH (08:35)
[2018-12-17] MEDS: LACTULOSE 10 GM/15 ML BOTTLE PO SCH ×3 (08:35→17:51)
[2018-12-17] MEDS: NYSTATIN POWDER 15 GM TOP SCH ×2 (08:37→21:32)
[2018-12-17] MEDS: NYSTATIN CREAM 15 GM TUBE TOP SCH ×2 (08:37→21:32)
[2018-12-17] MEDS: POLYETHYLENE GLYCOL 3350 17 GM PACKET PO SCH (08:37)
--- NOTE | 2018-12-17 17:05 | PROVIDER PROGRESS NOTE ---
Assessment/Plan - Problem List (1) Hepatic encephalopathy Assessment/Plan: Improved since admission, but slow speech, nystagmus, ataxia continue. He never had alcohol withdrawal; the CIWA protocol was ordered empirically at admission, but was not needed and no Ativan for wothdrawal was needed The CIWA protocol order was stopped yesterday. (2) Cirrhosis of liver with ascites Qualifiers: Hepatic cirrhosis type: alcoholic cirrhosis Qualified Code(s): K70.31 - Alcoholic cirrhosis of liver with ascites Assessment/Plan: As above. His Bp is better with a lower dose of Spironolactone. (3) Cerebellar ataxia Assessment/Plan: As above (4) Cellulitis Qualifiers: Site of cellulitis of extremity: lower extremity Assessment/Plan: Improcved with empiric antibiotics (5) Venous stasis dermatitis of both lower extremities Assessment/Plan: Stable (6) Macrocytic anemia Assessment/Plan: Stable - Current Meds Current Meds: Current Medications Generic Name Dose Route Start Last Admin Trade Name Freq PRN Reason Stop Dose Admin Famotidine 20 mg 12/14/18 21:00 12/17/18 08:34 Pepcid PO 20 mg BID ITZ Administration Lactulose 40 gm 12/15/18 08:00 12/17/18 12:19 Lactulose PO 40 gm TIDWM ITZ Administration Magnesium Oxide 400 mg 12/10/18 08:00 12/17/18 08:33 Mag Ox PO 400 mg DAILYWM ITZ Administration Mineral Oil 1 applic 12/10/18 07:40 12/16/18 15:55 Cavilon TOP 1 applic PRN PRN Administration Skin Care Multi-Ingredient Ointment 1 applic 12/10/18 07:40 12/10/18 12:39 Zinc Oxide TOP 1 applic PRN PRN Administration Skin Care Multivitamins/Minerals 1 tab 12/11/18 12:00 12/17/18 08:35 Theragran M PO 1 tab DAILYWM ITZ Administration Nystatin 1 applic 12/10/18 11:00 12/17/18 08:37 Nystop TOP 1 applic BID ITZ Administration Nystatin 1 applic 12/10/18 11:00 12/17/18 08:37 Mycostatin Cream TOP 1 applic BID ITZ Administration Petrolatum 5 gm 12/10/18 11:02 12/11/18 10:14 Vaseline TOP 5 gm PRN PRN Administration Dry Lips Polyethylene Glycol 17 gm 12/10/18 09:00 12/17/18 08:37 Miralax PO Not Given DAILY ITZ Rifaximin 550 mg 12/09/18 23:45 12/17/18 08:34 Xifaxan PO 550 mg BID ITZ Administration Sodium Chloride 10 ml 12/09/18 23:26 12/14/18 05:43 Normal Saline Flush 0.9% IVP 10 ml PRN PRN Administration NEEDED PER PROVIDER ORDERS Sodium Chloride 10 ml 12/10/18 01:00 12/17/18 08:37 Normal Saline Flush 0.9% IVP Not Given 0100,0900,1700 ITZ Spironolactone 12.5 mg 12/17/18 09:00 12/17/18 08:35 Aldactone PO 12.5 mg DAILY ITZ Administration Thiamine HCl 100 mg 12/11/18 12:00 12/17/18 08:35 Vitamin B-1 PO 100 mg DAILY ITZ Administration Trimethoprim/Sulfamethoxazole 1 tab 12/13/18 21:00 12/17/18 08:34 Bactrim Ds 800/160 PO 1 tab BID ITZ Administration Zinc Sulfate 220 mg 12/11/18 12:00 12/17/18 08:34 PO 220 mg DAILY ITZ Administration - Lab Result Fish Bone Diagrams: 12/12/18 06:00 12/17/18 05:10 - Additional Planning My Orders: My Active Orders 12/17/18 09:00 Spironolactone [Aldactone] 12.5 mg PO DAILY 12/18/18 05:00 AMMONIA [CHEM] DAILYLAB CMP [COMPREHENSIVE METABOLIC PANEL] [CHEM] DAILYLAB 12/19/18 05:00 AMMONIA [CHEM] DAILYLAB CMP [COMPREHENSIVE METABOLIC PANEL] [CHEM] DAILYLAB 12/20/18 05:00 AMMONIA [CHEM] DAILYLAB CMP [COMPREHENSIVE METABOLIC PANEL] [CHEM] DAILYLAB Subjective - Subjective Patient Reports: No Complaints Objective Vital Signs: Vital Signs - 24 hr 12/16/18 12/17/18 12/17/18 23:18 07:59 15:38 Temperature 36.6 C 36.8 C 36.7 C Heart Rate [ 59 L 54 L 56 L Brachial] Respiratory 18 18 18 Rate Blood Pressure 106/58 L [Left Brachial artery] Blood Pressure 113/59 L 105/64 [Right Brachial artery] O2 Saturation 100 98 100 Oxygen O2 Source Room air I&O (Last 24 Hrs): Intake and Output Totals x24h 12/15/18 12/16/18 12/17/18 23:59 23:59 23:59 Intake Total 1660 1700 1160 Output Total 2700 2900 2800 Balance -1040 -1200 -1640 General: Other (Groggy) HEENT: Mucous membr. moist/pink Neuro: Disoriented Cardiovascular: Regular rate Respiratory: No respiratory distress Abdomen: Soft Extremities: No edema - Results Results: Laboratory Results WBC 5.7 x10^3/uL (4.8-10.8) 12/12/18 06:00 RBC 3.89 10^6/uL (4.70-6.10) L 12/12/18 06:00 Hgb 12.5 g/dL (14.0-18.0) L 12/12/18 06:00 Hct 37.5 % (42.0-52.0) L 12/12/18 06:00 MCV 96.4 fL (80.0-94.0) H 12/12/18 06:00 MCH 32.2 pg (27.0-31.0) H 12/12/18 06:00 MCHC 33.4 g/dL (32.0-36.0) 12/12/18 06:00 RDW 13.3 % (12.0-15.0) 12/12/18 06:00 Plt Count 144 10^3/uL (130-450) 12/12/18 06:00 MPV 9.1 fL (7.4-11.4) 12/12/18 06:00 Neut # (Auto) 3.2 10^3/uL (1.5-6.6) 12/12/18 06:00 Lymph # (Auto) 1.6 10^3/uL (1.5-3.5) 12/12/18 06:00 [place] # (Auto) 0.6 10^3/uL (0.0-1.0) 12/12/18 06:00 Eos # (Auto) 0.3 10^3/uL (0.0-0.7) 12/12/18 06:00 Baso # (Auto) 0.0 10^3/uL (0.0-0.1) 12/12/18 06:00 Absolute Nucleated RBC 0.00 x10^3/uL 12/12/18 06:00 Nucleated RBC % 0.0 /100WBC 12/12/18 06:00 PT 16.0 secs (9.9-12.6) H 12/10/18 04:45 INR 1.4 (0.8-1.2) H 12/10/18 04:45 Sodium 138 mmol/L (135-145) 12/17/18 05:10 Potassium 4.4 mmol/L (3.5-5.0) 12/17/18 05:10 Chloride 109 mmol/L (101-111) 12/17/18 05:10 Carbon Dioxide 22 mmol/L (21-32) 12/17/18 05:10 Anion Gap 7.0 (6-13) 12/17/18 05:10 BUN 20 mg/dL (6-20) 12/17/18 05:10 Creatinine 1.1 mg/dL (0.6-1.2) 12/17/18 05:10 Estimated GFR (MDRD) 69 (>89) L 12/17/18 05:10 Glucose 75 mg/dL (70-100) 12/17/18 05:10 Lactic Acid 0.8 mmol/L (0.5-2.2) 12/09/18 23:07 Calcium 9.0 mg/dL (8.5-10.3) 12/17/18 05:10 Phosphorus 2.5 mg/dL (2.5-4.6) 12/09/18 23:07 Magnesium 1.5 mg/dL (1.7-2.8) L 12/09/18 23:07 Total Bilirubin 0.8 mg/dL (0.2-1.0) 12/17/18 05:10 AST 27 IU/L (10-42) 12/17/18 05:10 ALT 16 IU/L (10-60) 12/17/18 05:10 Alkaline Phosphatase 93 IU/L (42-121) 12/17/18 05:10 Ammonia 40.8 umol/L (7-35) H 12/17/18 05:10 Total Protein 5.4 g/dL (6.7-8.2) L 12/17/18 05:10 Albumin 2.3 g/dL (3.2-5.5) L 12/17/18 05:10 Globulin 3.1 g/dL (2.1-4.2) 12/17/18 05:10 Albumin/Globulin Ratio 0.7 (1.0-2.2) L 12/17/18 05:10 Lipase 51 U/L (22-51) 12/09/18 23:07 Tumor Marker AFP 1.2 ng/mL (<6.1) 12/12/18 05:00 Vitamin B12 749 pg/mL (180-914) 12/10/18 04:45 Folate 17.72 ng/mL (5.90 - >24.8) 12/10/18 04:45 Nasal Screen MRSA (PCR) POSITIVE (NEGATIVE) A* 12/10/18 02:10 Last Dose Date UNKNOWN 12/14/18 15:30 Last Dose Time UNKNOWN 12/14/18 15:30 Vancomycin Trough 5.7 ug/mL (10.0-20.0) L 12/14/18 15:30 Ethyl Alcohol < 5.0 mg/dL 12/09/18 23:07 Sepsis Event Note (H) - Evaluation Current Stage of Sepsis: Ruled out
[2018-12-18] MEDS: SODIUM CHLORIDE FLUSH 0.9% 10 ML SYRINGE IVP SCH ×4 (01:00→23:41)
[2018-12-18 06:30] LABS: ALBUMIN 2.5 g/dL (3.2-5.5); ALBUMIN/GLOBULIN RATIO 0.8 (1.0-2.2); BILIRUBIN,TOTAL 0.7 mg/dL (0.2-1.0); CALCIUM 9.4 mg/dL (8.5-10.3); CREATININE 1.1 mg/dL (0.6-1.2); TOTAL PROTEIN 5.8 g/dL (6.7-8.2)
[2018-12-18] MEDS: NYSTATIN POWDER 15 GM TOP SCH ×2 (08:29→20:26)
[2018-12-18] MEDS: LACTULOSE 10 GM/15 ML BOTTLE PO SCH ×3 (08:29→18:01)
[2018-12-18] MEDS: NYSTATIN CREAM 15 GM TUBE TOP SCH ×2 (08:29→20:26)
[2018-12-18] MEDS: FAMOTIDINE 20 MG TABLET PO SCH ×2 (08:30→20:27)
[2018-12-18] MEDS: rifAXIMin 550 MG TABLET PO SCH ×2 (08:30→20:27)
[2018-12-18] MEDS: MAGNESIUM OXIDE 400 MG TABLET PO SCH (08:30)
[2018-12-18] MEDS: SPIRONOLACTONE 25 MG TABLET PO SCH (08:30)
[2018-12-18] MEDS: ZINC SULFATE 220 MG CAPSULE PO SCH (08:30)
[2018-12-18] MEDS: SULFAMETH/TRIMETH DS 800/160 MG TABLET PO SCH ×2 (08:31→20:27)
[2018-12-18] MEDS: POLYETHYLENE GLYCOL 3350 17 GM PACKET PO SCH (08:31)
[2018-12-18] MEDS: MULTIVITAMIN W/MINERALS TABLET PO SCH (08:31)
[2018-12-18] MEDS: THIAMINE 100 MG TABLET PO SCH (08:31)
--- NOTE | 2018-12-18 11:48 | Discharge Plan ---
"Discharge Plan for SNF / [facility] - Discharge Plan And Transition Orders Disposition: SNF DC/Xfer Condition: Stable Allergies and Adverse Reactions: Allergies Allergy/AdvReac Type Severity Reaction Status Date / Time No Known Drug Allergies Allergy Verified 12/09/18 22:10 - SNF / SNF Transition Orders Admit to (Facility): [facility] Discharge Diagnosis: 1) Hepatic Encephalopathy 2) Cerebellar ataxia 3) Cirrhosis of liver with ascites 4) History of alcohol abuse 5) Cellulitis, resolved 6) Venous stasis dermatitis of lower extremities, improved with Woody catheter to prevent incontinence 7) Urinary incontinence 8) Candidal groin rash 9) Macrocytic anemia due to alcohol use and Thiamine deficiency 10) Hypokalemia, resolved 11) Hypomagnesemia 12) MRSA colonized, practice Contact Precautions 13) Code Status: DNR Medicare Certification Statement: I certify that [facility] care is medically necessary on a continuing basis for any of the conditions for which she/he is receiving care during hospitalization. Notify PCP of admission and forward orders to primary provider for signature. Weight on admission and: Weekly Call PCP immediately if weight increases by: 5 kg Other Notification Orders: Call PCP immediately if patient develops dyspnea, chest pain/tightness or edema. House Bowel Program: Yes Additional Bowel Program Orders: If no BM after 2 days, nurse may give M.O.M. 30ml PO PRN and/or ducolax Supp 1 [place] and/or MARK 250mg P.O., and/or senna 1-2 tabs PO. On day 3 nurse may give repeat above order until residents constipation is resolved. Annual Influenza Vaccine (between May 23 and December 20): Yes Two-step PPD per [facility] [phone] or approved exception documents: Yes Treatments & Other Orders: Woody catheter Oxygen Orders: None Medication Orders: PLEASE REFER TO THE DISCHARGE MEDICATION LIST. Insulin Orders?: No - Medications New Prescriptions: Lactulose 40 gm PO TIDWM #100 bottle Magnesium Oxide [Mag Ox] 400 mg PO DAILYWM #15 tablet Multivitamin W/Minerals [Theragran M] 1 tab PO DAILYWM #30 tablet Nystatin Cream [Mycostatin Cream] 1 applic TOP BID #1 tube rifAXIMin [Xifaxan] 550 mg PO BID #60 tablet Spironolactone [Aldactone] 25 mg PO DAILY #30 tablet Thiamine [Vitamin B-1] 100 mg PO DAILY #30 tablet Zinc Oxide [Diaper Rash] 1 applic TP BID PRN #1 tube PRN Reason: Diaper Rash - Diet Type: No added salt Texture: Regular Liquids: Thin May have monthly special meal: Yes - Therapies | Activity Therapy: Evaluation | Treat if indicated: PT, OT Rehabilitation Potential: Maximize functional status Activity: Activity as Tolerated Weight Bearing: Full Weight Assistance Devices: Walker Follow Up: Dr Lee Martinez after discharge from SNF"
--- NOTE | 2018-12-18 13:50 | PROVIDER PROGRESS NOTE ---
Assessment/Plan - Problem List (1) Hepatic encephalopathy Assessment/Plan: Unchanged, continue meds and plan. I spoke to at bedside and discussed his poor condition from alcoholism. She is aware and she herself thinks he will need months of rehab before he can function at home. Awaiting SNF placement (2) Cirrhosis of liver with ascites Qualifiers: Hepatic cirrhosis type: alcoholic cirrhosis Qualified Code(s): K70.31 - Alcoholic cirrhosis of liver with ascites Assessment/Plan: Stable (3) Cerebellar ataxia Assessment/Plan: Unchanged, continue PT (4) Cellulitis Qualifiers: Site of cellulitis of extremity: lower extremity Assessment/Plan: Resolved. Will stop Bactrim (5) Venous stasis dermatitis of both lower extremities Assessment/Plan: Improved due to use of Woody to prevent incontinence (6) Macrocytic anemia Assessment/Plan: Stable - Current Meds Current Meds: Current Medications Generic Name Dose Route Start Last Admin Trade Name Freq PRN Reason Stop Dose Admin Famotidine 20 mg 12/14/18 21:00 12/18/18 08:30 Pepcid PO 20 mg BID ITZ Administration Lactulose 40 gm 12/15/18 08:00 12/18/18 12:03 Lactulose PO 40 gm TIDWM ITZ Administration Magnesium Oxide 400 mg 12/10/18 08:00 12/18/18 08:30 Mag Ox PO 400 mg DAILYWM ITZ Administration Mineral Oil 1 applic 12/10/18 07:40 12/16/18 15:55 Cavilon TOP 1 applic PRN PRN Administration Skin Care Multi-Ingredient Ointment 1 applic 12/10/18 07:40 12/10/18 12:39 Zinc Oxide TOP 1 applic PRN PRN Administration Skin Care Multivitamins/Minerals 1 tab 12/11/18 12:00 12/18/18 08:31 Theragran M PO 1 tab DAILYWM ITZ Administration Nystatin 1 applic 12/10/18 11:00 12/18/18 08:29 Nystop TOP 1 applic BID ITZ Administration Nystatin 1 applic 12/10/18 11:00 12/18/18 08:29 Mycostatin Cream TOP 1 applic BID ITZ Administration Petrolatum 5 gm 12/10/18 11:02 12/11/18 10:14 Vaseline TOP 5 gm PRN PRN Administration Dry Lips Polyethylene Glycol 17 gm 12/10/18 09:00 12/18/18 08:31 Miralax PO Not Given DAILY ITZ Rifaximin 550 mg 12/09/18 23:45 12/18/18 08:30 Xifaxan PO 550 mg BID ITZ Administration Sodium Chloride 10 ml 12/09/18 23:26 12/14/18 05:43 Normal Saline Flush 0.9% IVP 10 ml PRN PRN Administration NEEDED PER PROVIDER ORDERS Sodium Chloride 10 ml 12/10/18 01:00 12/18/18 08:32 Normal Saline Flush 0.9% IVP Not Given 0100,0900,1700 ITZ Spironolactone 12.5 mg 12/17/18 09:00 12/18/18 08:30 Aldactone PO 12.5 mg DAILY ITZ Administration Thiamine HCl 100 mg 12/11/18 12:00 12/18/18 08:31 Vitamin B-1 PO 100 mg DAILY ITZ Administration Trimethoprim/Sulfamethoxazole 1 tab 12/13/18 21:00 12/18/18 08:31 Bactrim Ds 800/160 PO 1 tab BID ITZ Administration Zinc Sulfate 220 mg 12/11/18 12:00 12/18/18 08:30 PO 220 mg DAILY ITZ Administration - Lab Result Fish Bone Diagrams: 12/12/18 06:00 12/18/18 05:50 - Additional Planning My Orders: My Active Orders 12/18/18 12:31 Miscellaenous Nursing Order [RC] ONCE 12/19/18 05:00 AMMONIA [CHEM] DAILYLAB CMP [COMPREHENSIVE METABOLIC PANEL] [CHEM] DAILYLAB 12/20/18 05:00 AMMONIA [CHEM] DAILYLAB CMP [COMPREHENSIVE METABOLIC PANEL] [CHEM] DAILYLAB Subjective - Subjective Patient Reports: No Complaints Objective Vital Signs: Vital Signs - 24 hr 12/17/18 12/18/18 12/18/18 15:38 00:19 08:00 Temperature 36.7 C 36.8 C 36.5 C Heart Rate [ 56 L 50 L 56 L Brachial] Respiratory 18 18 18 Rate Blood Pressure 91/67 [Left Brachial artery] Blood Pressure 105/64 116/62 [Right Brachial artery] O2 Saturation 100 100 95 Oxygen O2 Source Room air I&O (Last 24 Hrs): Intake and Output Totals x24h 12/16/18 12/17/18 12/18/18 23:59 23:59 23:59 Intake Total 1700 1560 480 Output Total 2900 1920 2150 Balance -1200 -5527 -9660 General: Alert Neck: Supple Neuro: Disoriented Cardiovascular: Regular rate Respiratory: No respiratory distress Abdomen: Soft Extremities: No edema, Other (Venous stasis) - Results Results: Laboratory Results WBC 5.7 x10^3/uL (4.8-10.8) 12/12/18 06:00 RBC 3.89 10^6/uL (4.70-6.10) L 12/12/18 06:00 Hgb 12.5 g/dL (14.0-18.0) L 12/12/18 06:00 Hct 37.5 % (42.0-52.0) L 12/12/18 06:00 MCV 96.4 fL (80.0-94.0) H 12/12/18 06:00 MCH 32.2 pg (27.0-31.0) H 12/12/18 06:00 MCHC 33.4 g/dL (32.0-36.0) 12/12/18 06:00 RDW 13.3 % (12.0-15.0) 12/12/18 06:00 Plt Count 144 10^3/uL (130-450) 12/12/18 06:00 MPV 9.1 fL (7.4-11.4) 12/12/18 06:00 Neut # (Auto) 3.2 10^3/uL (1.5-6.6) 12/12/18 06:00 Lymph # (Auto) 1.6 10^3/uL (1.5-3.5) 12/12/18 06:00 [place] # (Auto) 0.6 10^3/uL (0.0-1.0) 12/12/18 06:00 Eos # (Auto) 0.3 10^3/uL (0.0-0.7) 12/12/18 06:00 Baso # (Auto) 0.0 10^3/uL (0.0-0.1) 12/12/18 06:00 Absolute Nucleated RBC 0.00 x10^3/uL 12/12/18 06:00 Nucleated RBC % 0.0 /100WBC 12/12/18 06:00 PT 16.0 secs (9.9-12.6) H 12/10/18 04:45 INR 1.4 (0.8-1.2) H 12/10/18 04:45 Sodium 137 mmol/L (135-145) 12/18/18 05:50 Potassium 4.7 mmol/L (3.5-5.0) 12/18/18 05:50 Chloride 108 mmol/L (101-111) 12/18/18 05:50 Carbon Dioxide 22 mmol/L (21-32) 12/18/18 05:50 Anion Gap 7.0 (6-13) 12/18/18 05:50 BUN 20 mg/dL (6-20) 12/18/18 05:50 Creatinine 1.1 mg/dL (0.6-1.2) 12/18/18 05:50 Estimated GFR (MDRD) 69 (>89) L 12/18/18 05:50 Glucose 82 mg/dL (70-100) 12/18/18 05:50 Lactic Acid 0.8 mmol/L (0.5-2.2) 12/09/18 23:07 Calcium 9.4 mg/dL (8.5-10.3) 12/18/18 05:50 Phosphorus 2.5 mg/dL (2.5-4.6) 12/09/18 23:07 Magnesium 1.5 mg/dL (1.7-2.8) L 12/09/18 23:07 Total Bilirubin 0.7 mg/dL (0.2-1.0) 12/18/18 05:50 AST 30 IU/L (10-42) 12/18/18 05:50 ALT 19 IU/L (10-60) 12/18/18 05:50 Alkaline Phosphatase 95 IU/L (42-121) 12/18/18 05:50 Ammonia 43.8 umol/L (7-35) H 12/18/18 05:50 Total Protein 5.8 g/dL (6.7-8.2) L 12/18/18 05:50 Albumin 2.5 g/dL (3.2-5.5) L 12/18/18 05:50 Globulin 3.3 g/dL (2.1-4.2) 12/18/18 05:50 Albumin/Globulin Ratio 0.8 (1.0-2.2) L 12/18/18 05:50 Lipase 51 U/L (22-51) 12/09/18 23:07 Tumor Marker AFP 1.2 ng/mL (<6.1) 12/12/18 05:00 Vitamin B12 749 pg/mL (180-914) 12/10/18 04:45 Folate 17.72 ng/mL (5.90 - >24.8) 12/10/18 04:45 Nasal Screen MRSA (PCR) POSITIVE (NEGATIVE) A* 12/10/18 02:10 Last Dose Date UNKNOWN 12/14/18 15:30 Last Dose Time UNKNOWN 12/14/18 15:30 Vancomycin Trough 5.7 ug/mL (10.0-20.0) L 12/14/18 15:30 Ethyl Alcohol < 5.0 mg/dL 12/09/18 23:07 Sepsis Event Note (H) - Evaluation Current Stage of Sepsis: Ruled out
[2018-12-19 06:59] LABS: ALBUMIN 2.3 g/dL (3.2-5.5); ALBUMIN/GLOBULIN RATIO 0.6 (1.0-2.2); BILIRUBIN,TOTAL 0.9 mg/dL (0.2-1.0); CALCIUM 9.3 mg/dL (8.5-10.3); CREATININE 1.1 mg/dL (0.6-1.2)
[2018-12-19] MEDS: LACTULOSE 10 GM/15 ML BOTTLE PO SCH ×3 (08:40→17:47)
[2018-12-19] MEDS: THIAMINE 100 MG TABLET PO SCH (08:41)
[2018-12-19] MEDS: SPIRONOLACTONE 25 MG TABLET PO SCH (08:41)
[2018-12-19] MEDS: rifAXIMin 550 MG TABLET PO SCH ×2 (08:41→20:54)
[2018-12-19] MEDS: ZINC SULFATE 220 MG CAPSULE PO SCH (08:42)
[2018-12-19] MEDS: MAGNESIUM OXIDE 400 MG TABLET PO SCH (08:42)
[2018-12-19] MEDS: MULTIVITAMIN W/MINERALS TABLET PO SCH (08:42)
[2018-12-19] MEDS: FAMOTIDINE 20 MG TABLET PO SCH ×2 (08:42→20:54)
[2018-12-19] MEDS: SODIUM CHLORIDE FLUSH 0.9% 10 ML SYRINGE IVP SCH ×3 (08:43→23:40)
[2018-12-19] MEDS: NYSTATIN CREAM 15 GM TUBE TOP SCH ×2 (08:43→20:56)
[2018-12-19] MEDS: NYSTATIN POWDER 15 GM TOP SCH ×2 (08:43→20:56)
[2018-12-19] MEDS: POLYETHYLENE GLYCOL 3350 17 GM PACKET PO SCH (08:43)
--- NOTE | 2018-12-19 16:52 | PROVIDER PROGRESS NOTE ---
Assessment/Plan - Problem List (1) Hepatic encephalopathy Assessment/Plan: Unchanged. Awaiting SNF placement. The hold-up if that the SNF needs a private room due to his MRSA pos. result, and before that the SNFs required confirmation that his would pay them. (2) Cirrhosis of liver with ascites Qualifiers: Hepatic cirrhosis type: alcoholic cirrhosis Qualified Code(s): K70.31 - Alcoholic cirrhosis of liver with ascites Assessment/Plan: Unchanged (3) Cerebellar ataxia Assessment/Plan: Unchanged (4) Cellulitis Qualifiers: Site of cellulitis of extremity: lower extremity Assessment/Plan: Treatment finished, antibiotics stopped today. (5) Venous stasis dermatitis of both lower extremities Assessment/Plan: Unchanged (6) Macrocytic anemia Assessment/Plan: Unchanged. - Current Meds Current Meds: Current Medications Generic Name Dose Route Start Last Admin Trade Name Freq PRN Reason Stop Dose Admin Famotidine 20 mg 12/14/18 21:00 12/19/18 08:42 Pepcid PO 20 mg BID ITZ Administration Lactulose 40 gm 12/15/18 08:00 12/19/18 12:00 Lactulose PO 40 gm TIDWM ITZ Administration Magnesium Oxide 400 mg 12/10/18 08:00 12/19/18 08:42 Mag Ox PO 400 mg DAILYWM ITZ Administration Mineral Oil 1 applic 12/10/18 07:40 12/16/18 15:55 Cavilon TOP 1 applic PRN PRN Administration Skin Care Multi-Ingredient Ointment 1 applic 12/10/18 07:40 12/10/18 12:39 Zinc Oxide TOP 1 applic PRN PRN Administration Skin Care Multivitamins/Minerals 1 tab 12/11/18 12:00 12/19/18 08:42 Theragran M PO 1 tab DAILYWM ITZ Administration Nystatin 1 applic 12/10/18 11:00 12/19/18 08:43 Nystop TOP 1 applic BID ITZ Administration Nystatin 1 applic 12/10/18 11:00 12/19/18 08:43 Mycostatin Cream TOP 1 applic BID ITZ Administration Petrolatum 5 gm 12/10/18 11:02 12/11/18 10:14 Vaseline TOP 5 gm PRN PRN Administration Dry Lips Polyethylene Glycol 17 gm 12/10/18 09:00 12/19/18 08:43 Miralax PO Not Given DAILY ITZ Rifaximin 550 mg 03/20/19 23:45 12/19/18 08:41 Xifaxan PO 550 mg BID ITZ Administration Sodium Chloride 10 ml 12/09/18 23:26 12/14/18 05:43 Normal Saline Flush 0.9% IVP 10 ml PRN PRN Administration NEEDED PER PROVIDER ORDERS Sodium Chloride 10 ml 12/10/18 01:00 12/19/18 15:35 Normal Saline Flush 0.9% IVP Not Given 0100,0900,1700 ITZ Spironolactone 12.5 mg 12/17/18 09:00 12/19/18 08:41 Aldactone PO 12.5 mg DAILY ITZ Administration Thiamine HCl 100 mg 12/11/18 12:00 12/19/18 08:41 Vitamin B-1 PO 100 mg DAILY ITZ Administration Zinc Sulfate 220 mg 12/11/18 12:00 12/19/18 08:42 PO 220 mg DAILY ITZ Administration - Lab Result Fish Bone Diagrams: 12/12/18 06:00 12/19/18 06:35 - Additional Planning My Orders: My Active Orders 12/20/18 05:00 AMMONIA [CHEM] DAILYLAB CMP [COMPREHENSIVE METABOLIC PANEL] [CHEM] DAILYLAB Subjective - Subjective Patient Reports: Resting Comfortably, No Complaints Objective Vital Signs: Vital Signs - 24 hr 12/18/18 12/19/18 12/19/18 23:53 08:00 15:26 Temperature 35.7 C L 36.5 C 36.6 C Heart Rate [ 69 60 60 Brachial] Respiratory 18 20 18 Rate Blood Pressure 127/67 117/71 138/73 H [Right Brachial artery] O2 Saturation 100 100 100 Oxygen O2 Source Room air I&O (Last 24 Hrs): Intake and Output Totals x24h 12/17/18 12/18/18 12/19/18 23:59 23:59 23:59 Intake Total 1560 1510 840 Output Total 3600 3275 2600 Balance -2039 -1764 General: Alert HEENT: Mucous membr. moist/pink Neuro: Other (Slow speech) Cardiovascular: Regular rate Respiratory: No respiratory distress Abdomen: Soft Extremities: No edema, Other (Venous stasi changes) - Results Results: Laboratory Results WBC 5.7 x10^3/uL (4.8-10.8) 12/12/18 06:00 RBC 3.89 10^6/uL (4.70-6.10) L 12/12/18 06:00 Hgb 12.5 g/dL (14.0-18.0) L 12/12/18 06:00 Hct 37.5 % (42.0-52.0) L 12/12/18 06:00 MCV 96.4 fL (80.0-94.0) H 12/12/18 06:00 MCH 32.2 pg (27.0-31.0) H 12/12/18 06:00 MCHC 33.4 g/dL (32.0-36.0) 12/12/18 06:00 RDW 13.3 % (12.0-15.0) 12/12/18 06:00 Plt Count 144 10^3/uL (130-450) 12/12/18 06:00 MPV 9.1 fL (7.4-11.4) 12/12/18 06:00 Neut # (Auto) 3.2 10^3/uL (1.5-6.6) 12/12/18 06:00 Lymph # (Auto) 1.6 10^3/uL (1.5-3.5) 12/12/18 06:00 [place] # (Auto) 0.6 10^3/uL (0.0-1.0) 12/12/18 06:00 Eos # (Auto) 0.3 10^3/uL (0.0-0.7) 12/12/18 06:00 Baso # (Auto) 0.0 10^3/uL (0.0-0.1) 12/12/18 06:00 Absolute Nucleated RBC 0.00 x10^3/uL 12/12/18 06:00 Nucleated RBC % 0.0 /100WBC 12/12/18 06:00 PT 16.0 secs (9.9-12.6) H 12/10/18 04:45 INR 1.4 (0.8-1.2) H 12/10/18 04:45 Sodium 133 mmol/L (135-145) L 12/19/18 06:35 Potassium 4.8 mmol/L (3.5-5.0) 12/19/18 06:35 Chloride 103 mmol/L (101-111) 12/19/18 06:35 Carbon Dioxide 24 mmol/L (21-32) 12/19/18 06:35 Anion Gap 6.0 (6-13) 12/19/18 06:35 BUN 19 mg/dL (6-20) 12/19/18 06:35 Creatinine 1.1 mg/dL (0.6-1.2) 12/19/18 06:35 Estimated GFR (MDRD) 69 (>89) L 12/19/18 06:35 Glucose 80 mg/dL (70-100) 12/19/18 06:35 Lactic Acid 0.8 mmol/L (0.5-2.2) 12/09/18 23:07 Calcium 9.3 mg/dL (8.5-10.3) 12/19/18 06:35 Phosphorus 2.5 mg/dL (2.5-4.6) 12/09/18 23:07 Magnesium 1.5 mg/dL (1.7-2.8) L 12/09/18 23:07 Total Bilirubin 0.9 mg/dL (0.2-1.0) 12/19/18 06:35 AST 30 IU/L (10-42) 12/19/18 06:35 ALT 20 IU/L (10-60) 12/19/18 06:35 Alkaline Phosphatase 79 IU/L (42-121) 12/19/18 06:35 Ammonia 33.6 umol/L (7-35) 12/19/18 06:35 Total Protein 6.0 g/dL (6.7-8.2) L 12/19/18 06:35 Albumin 2.3 g/dL (3.2-5.5) L 12/19/18 06:35 Globulin 3.7 g/dL (2.1-4.2) 12/19/18 06:35 Albumin/Globulin Ratio 0.6 (1.0-2.2) L 12/19/18 06:35 Lipase 51 U/L (22-51) 12/09/18 23:07 Tumor Marker AFP 1.2 ng/mL (<6.1) 12/12/18 05:00 Vitamin B12 749 pg/mL (180-914) 12/10/18 04:45 Folate 17.72 ng/mL (5.90 - >24.8) 12/10/18 04:45 Nasal Screen MRSA (PCR) POSITIVE (NEGATIVE) A* 12/10/18 02:10 Last Dose Date UNKNOWN 12/14/18 15:30 Last Dose Time UNKNOWN 12/14/18 15:30 Vancomycin Trough 5.7 ug/mL (10.0-20.0) L 12/14/18 15:30 Ethyl Alcohol < 5.0 mg/dL 12/09/18 23:07 Sepsis Event Note (H) - Evaluation Current Stage of Sepsis: Ruled out
[2018-12-20 07:28] LABS: ALBUMIN 2.6 g/dL (3.2-5.5); ALBUMIN/GLOBULIN RATIO 0.7 (1.0-2.2); CALCIUM 9.5 mg/dL (8.5-10.3); CREATININE 1.1 mg/dL (0.6-1.2); TOTAL PROTEIN 6.1 g/dL (6.7-8.2)
[2018-12-20] MEDS: rifAXIMin 550 MG TABLET PO SCH ×2 (08:10→22:01)
[2018-12-20] MEDS: LACTULOSE 10 GM/15 ML BOTTLE PO SCH ×3 (08:10→18:16)
[2018-12-20] MEDS: POLYETHYLENE GLYCOL 3350 17 GM PACKET PO SCH (08:11)
[2018-12-20] MEDS: MAGNESIUM OXIDE 400 MG TABLET PO SCH (08:11)
[2018-12-20] MEDS: MULTIVITAMIN W/MINERALS TABLET PO SCH (08:11)
[2018-12-20] MEDS: SPIRONOLACTONE 25 MG TABLET PO SCH (08:11)
[2018-12-20] MEDS: FAMOTIDINE 20 MG TABLET PO SCH ×2 (08:11→22:02)
[2018-12-20] MEDS: THIAMINE 100 MG TABLET PO SCH (08:11)
[2018-12-20] MEDS: ZINC SULFATE 220 MG CAPSULE PO SCH (08:11)
[2018-12-20] MEDS: SODIUM CHLORIDE FLUSH 0.9% 10 ML SYRINGE IVP SCH ×2 (08:12→18:12)
[2018-12-20] MEDS: NYSTATIN CREAM 15 GM TUBE TOP SCH ×2 (08:17→22:03)
[2018-12-20] MEDS: NYSTATIN POWDER 15 GM TOP SCH ×2 (08:17→22:04)
--- NOTE | 2018-12-20 08:29 | PROVIDER PROGRESS NOTE ---
Assessment/Plan - Problem List (1) Hepatic encephalopathy Assessment/Plan: Unchanged. Is on Lactulose and Rifaximin (2) Cirrhosis of liver with ascites Qualifiers: Hepatic cirrhosis type: alcoholic cirrhosis Qualified Code(s): K70.31 - Alcoholic cirrhosis of liver with ascites Assessment/Plan: Stable (3) Cerebellar ataxia Assessment/Plan: Unchanged. Walks with a walker with PT. (4) Venous stasis dermatitis of both lower extremities Assessment/Plan: Stable (5) Macrocytic anemia Assessment/Plan: Stable. 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 (7) Cellulitis Qualifiers: Site of cellulitis of extremity: lower extremity Assessment/Plan: Resolved, is off antibiotics - Current Meds Current Meds: Current Medications Generic Name Dose Route Start Last Admin Trade Name Freq PRN Reason Stop Dose Admin Famotidine 20 mg 12/14/18 21:00 12/20/18 08:11 Pepcid PO 20 mg BID ITZ Administration Lactulose 40 gm 12/15/18 08:00 12/20/18 08:10 Lactulose PO 40 gm TIDWM ITZ Administration Magnesium Oxide 400 mg 12/10/18 08:00 12/20/18 08:11 Mag Ox PO 400 mg DAILYWM ITZ Administration Mineral Oil 1 applic 12/10/18 07:40 12/16/18 15:55 Cavilon TOP 1 applic PRN PRN Administration Skin Care Multi-Ingredient Ointment 1 applic 12/10/18 07:40 12/10/18 12:39 Zinc Oxide TOP 1 applic PRN PRN Administration Skin Care Multivitamins/Minerals 1 tab 12/11/18 12:00 12/20/18 08:11 Theragran M PO 1 tab DAILYWM ITZ Administration Nystatin 1 applic 12/10/18 11:00 12/20/18 08:17 Nystop TOP 1 applic BID ITZ Administration Nystatin 1 applic 12/10/18 11:00 12/20/18 08:17 Mycostatin Cream TOP 1 applic BID ITZ Administration Petrolatum 5 gm 12/10/18 11:02 12/11/18 10:14 Vaseline TOP 5 gm PRN PRN Administration Dry Lips Polyethylene Glycol 17 gm 12/10/18 09:00 12/20/18 08:11 Miralax PO Not Given DAILY ITZ Rifaximin 550 mg 12/09/18 23:45 12/20/18 08:10 Xifaxan PO 550 mg BID ITZ Administration Sodium Chloride 10 ml 12/09/18 23:26 12/14/18 05:43 Normal Saline Flush 0.9% IVP 10 ml PRN PRN Administration NEEDED PER PROVIDER ORDERS Sodium Chloride 10 ml 12/10/18 01:00 12/20/18 08:12 Normal Saline Flush 0.9% IVP Not Given 0100,0900,1700 ITZ Spironolactone 12.5 mg 12/17/18 09:00 12/20/18 08:11 Aldactone PO 12.5 mg DAILY ITZ Administration Thiamine HCl 100 mg 12/11/18 12:00 12/20/18 08:11 Vitamin B-1 PO 100 mg DAILY ITZ Administration Zinc Sulfate 220 mg 12/11/18 12:00 12/20/18 08:11 PO 220 mg DAILY ITZ Administration - Lab Result Fish Bone Diagrams: 12/12/18 06:00 12/20/18 06:56 Subjective - Subjective Patient Reports: No Complaints Objective Vital Signs: Vital Signs - 24 hr 12/19/18 12/19/18 12/20/18 15:26 23:25 00:04 Temperature 36.6 C 36.9 C Heart Rate [ 60 67 Brachial] Respiratory 18 16 Rate Blood Pressure 138/73 H 165/83 H 140/63 H [Right Brachial artery] O2 Saturation 100 100 Oxygen O2 Source Room air I&O (Last 24 Hrs): Intake and Output Totals x24h 12/18/18 12/19/18 12/20/18 23:59 23:59 23:59 Intake Total 1510 1200 480 Output Total 3275 3250 1525 Balance -1765 -0 -1045 General: Alert HEENT: Mucous membr. moist/pink Neck: Supple Neuro: Speech Slurred, Other (Occaisional confusion) Cardiovascular: Regular rate Respiratory: No respiratory distress Abdomen: Soft Genitourinary: Other (Groin rash, has a Woody for skin healing, since he is incontinent) Extremities: No edema, Other (Venous stasis) - Results Results: Laboratory Results WBC 5.7 x10^3/uL (4.8-10.8) 12/12/18 06:00 RBC 3.89 10^6/uL (4.70-6.10) L 12/12/18 06:00 Hgb 12.5 g/dL (14.0-18.0) L 12/12/18 06:00 Hct 37.5 % (42.0-52.0) L 12/12/18 06:00 MCV 96.4 fL (80.0-94.0) H 12/12/18 06:00 MCH 32.2 pg (27.0-31.0) H 12/12/18 06:00 MCHC 33.4 g/dL (32.0-36.0) 12/12/18 06:00 RDW 13.3 % (12.0-15.0) 12/12/18 06:00 Plt Count 144 10^3/uL (130-450) 12/12/18 06:00 MPV 9.1 fL (7.4-11.4) 12/12/18 06:00 Neut # (Auto) 3.2 10^3/uL (1.5-6.6) 12/12/18 06:00 Lymph # (Auto) 1.6 10^3/uL (1.5-3.5) 12/12/18 06:00 [place] # (Auto) 0.6 10^3/uL (0.0-1.0) 12/12/18 06:00 Eos # (Auto) 0.3 10^3/uL (0.0-0.7) 12/12/18 06:00 Baso # (Auto) 0.0 10^3/uL (0.0-0.1) 12/12/18 06:00 Absolute Nucleated RBC 0.00 x10^3/uL 12/12/18 06:00 Nucleated RBC % 0.0 /100WBC 12/12/18 06:00 PT 16.0 secs (9.9-12.6) H 12/10/18 04:45 INR 1.4 (0.8-1.2) H 12/10/18 04:45 Sodium 136 mmol/L (135-145) 12/20/18 06:56 Potassium 4.4 mmol/L (3.5-5.0) 12/20/18 06:56 Chloride 107 mmol/L (101-111) 12/20/18 06:56 Carbon Dioxide 22 mmol/L (21-32) 12/20/18 06:56 Anion Gap 7.0 (6-13) 12/20/18 06:56 BUN 20 mg/dL (6-20) 12/20/18 06:56 Creatinine 1.1 mg/dL (0.6-1.2) 12/20/18 06:56 Estimated GFR (MDRD) 69 (>89) L 12/20/18 06:56 Glucose 83 mg/dL (70-100) 12/20/18 06:56 Lactic Acid 0.8 mmol/L (0.5-2.2) 12/09/18 23:07 Calcium 9.5 mg/dL (8.5-10.3) 12/20/18 06:56 Phosphorus 2.5 mg/dL (2.5-4.6) 12/09/18 23:07 Magnesium 1.5 mg/dL (1.7-2.8) L 12/09/18 23:07 Total Bilirubin 1.0 mg/dL (0.2-1.0) 12/20/18 06:56 AST 32 IU/L (10-42) 12/20/18 06:56 ALT 22 IU/L (10-60) 12/20/18 06:56 Alkaline Phosphatase 91 IU/L (42-121) 12/20/18 06:56 Ammonia 44.0 umol/L (7-35) H 12/20/18 06:56 Total Protein 6.1 g/dL (6.7-8.2) L 12/20/18 06:56 Albumin 2.6 g/dL (3.2-5.5) L 12/20/18 06:56 Globulin 3.5 g/dL (2.1-4.2) 12/20/18 06:56 Albumin/Globulin Ratio 0.7 (1.0-2.2) L 12/20/18 06:56 Lipase 51 U/L (22-51) 12/09/18 23:07 Tumor Marker AFP 1.2 ng/mL (<6.1) 12/12/18 05:00 Vitamin B12 749 pg/mL (180-914) 12/10/18 04:45 Folate 17.72 ng/mL (5.90 - >24.8) 12/10/18 04:45 Nasal Screen MRSA (PCR) POSITIVE (NEGATIVE) A* 12/10/18 02:10 Last Dose Date UNKNOWN 12/14/18 15:30 Last Dose Time UNKNOWN 12/14/18 15:30 Vancomycin Trough 5.7 ug/mL (10.0-20.0) L 12/14/18 15:30 Ethyl Alcohol < 5.0 mg/dL 12/09/18 23:07 Sepsis Event Note (H) - Evaluation Current Stage of Sepsis: Ruled out
--- NOTE | 2018-12-20 12:26 | Discharge Plan ---
"Discharge Plan for SNF / [facility] - Discharge Plan And Transition Orders Disposition: 03 SNF DC/Xfer Condition: Poor Allergies and Adverse Reactions: Allergies Allergy/AdvReac Type Severity Reaction Status Date / Time No Known Drug Allergies Allergy Verified 12/09/18 22:10 - SNF / [facility]IT[facility] Transition Orders Admit to (Facility): [facility] Discharge Diagnosis: 1) Hepatic encephalopathy (2) Cirrhosis of liver with ascites (3) Cerebellar ataxia (4) Cellulitis, resolved (5) Macrocytic anemia (6) History of alcohol abuse (6) MRSA carrier (7) Venous stasis dermatitis of both lower extremities (8) Urinary incontinence, has chronic Woody Medicare Certification Statement: I certify that Post Hospital fpc care is medically necessary on a continuing basis for any of the conditions for which she/he is receiving care during hospitalization. Notify PCP of admission and forward orders to primary provider for signature. Weight on admission and: Weekly Call PCP immediately if weight increases by: 5 kg Other Notification Orders: Call PCP immediately if patient develops dyspnea, chest pain/tightness or edema. House Bowel Program: Yes Additional Bowel Program Orders: If no BM after 2 days, nurse may give M.O.M. 30ml PO PRN and/or ducolax Supp 1 MT and/or MARK 250mg P.O., and/or senna 1-2 tabs PO. On day 3 nurse may give repeat above order until residents constipation is resolved. Annual Influenza Vaccine (between May 23 and December 20): Yes Two-step PPD per [facility] [id number] or approved exception documents: Yes Treatments & Other Orders: Daily PT and OT Oxygen Orders: None Medication Orders: PLEASE REFER TO THE DISCHARGE MEDICATION LIST. Insulin Orders?: No - Medications New Prescriptions: Lactulose 40 gm PO TIDWM #100 bottle Magnesium Oxide [Mag Ox] 400 mg PO DAILYWM #15 tablet Multivitamin W/Minerals [Theragran M] 1 tab PO DAILYWM #30 tablet Nystatin Cream [Mycostatin Cream] 1 applic TOP BID #1 tube rifAXIMin [Xifaxan] 550 mg PO BID #60 tablet Spironolactone [Aldactone] 25 mg PO DAILY #30 tablet Thiamine [Vitamin B-1] 100 mg PO DAILY #30 tablet Zinc Oxide [Diaper Rash] 1 applic TP BID PRN #1 tube PRN Reason: Diaper Rash - Diet Type: No added salt Texture: Regular Liquids: Thin May have monthly special meal: Yes - Therapies | Activity Therapy: Evaluation | Treat if indicated: PT, OT Rehabilitation Potential: Maximize functional status Activity: Activity as Tolerated Weight Bearing: Full Weight Assistance Devices: Walker Additional Instructions: You were here with hepatic encephalopathy from alcoholic cirrhosis. A cellulitis of the legs got a course of treatment completed. Please follow-up with your PCP after discharge from Rehab."
[2018-12-20] MEDS ORDERED: LORazepam 0.5 MG TABLET PO PRN (14:07)
[2018-12-20] MEDS ORDERED: HALOPERIDOL 5 MG/ML VIAL IM SCH (14:31)
[2018-12-21] MEDS: SODIUM CHLORIDE FLUSH 0.9% 10 ML SYRINGE IVP SCH ×3 (01:29→21:25)
[2018-12-21 05:45] LABS: BASOPHILS # (AUTO) 0.1 10^3/uL (0.0-0.1); BASOPHILS % (AUTO) 0.5 %; EOSINOPHILS % (AUTO) 0.1 %; HGB - HEMOGLOBIN 13.5 g/dL (14.0-18.0); LYMPHOCYTES # (AUTO) 1.2 10^3/uL (1.5-3.5); LYMPHOCYTES % (AUTO) 7.2 %; MEAN CORPUSCULAR HEMOGLOBIN 32.2 pg (27.0-31.0); MEAN CORPUSCULAR HGB CONC 33.5 g/dL (32.0-36.0); MEAN CORPUSCULAR VOLUME 96.2 fL (80.0-94.0); MEAN PLATELET VOLUME 9.4 fL (7.4-11.4); MONOCYTES # (AUTO) 1.5 10^3/uL (0.0-1.0); MONOCYTES % (AUTO) 8.8 %; NEUTROPHILS # (AUTO) 14.2 10^3/uL (1.5-6.6); NEUTROPHILS % (AUTO) 83.4 %; PLT - PLATELET COUNT 188 10^3/uL (130-450); RED BLOOD COUNT 4.18 10^6/uL (4.70-6.10)
[2018-12-21 05:57] LABS: ALBUMIN 2.7 g/dL (3.2-5.5); ALBUMIN/GLOBULIN RATIO 0.7 (1.0-2.2); BILIRUBIN,TOTAL 1.4 mg/dL (0.2-1.0); CALCIUM 9.6 mg/dL (8.5-10.3); MAGNESIUM 1.4 mg/dL (1.7-2.8); TOTAL PROTEIN 6.7 g/dL (6.7-8.2)
[2018-12-21] MEDS: THIAMINE 100 MG TABLET PO SCH (08:22)
[2018-12-21] MEDS: rifAXIMin 550 MG TABLET PO SCH ×2 (08:22→21:52)
[2018-12-21] MEDS: FAMOTIDINE 20 MG TABLET PO SCH ×2 (08:22→21:52)
[2018-12-21] MEDS: MAGNESIUM OXIDE 400 MG TABLET PO SCH (08:22)
[2018-12-21] MEDS: SPIRONOLACTONE 25 MG TABLET PO SCH (08:23)
[2018-12-21] MEDS: MULTIVITAMIN W/MINERALS TABLET PO SCH (08:24)
[2018-12-21] MEDS: LACTULOSE 10 GM/15 ML BOTTLE PO SCH ×3 (08:25→17:24)
[2018-12-21] MEDS: NYSTATIN CREAM 15 GM TUBE TOP SCH ×2 (08:26→21:53)
[2018-12-21] MEDS: NYSTATIN POWDER 15 GM TOP SCH ×2 (08:26→21:52)
[2018-12-21] MEDS: POLYETHYLENE GLYCOL 3350 17 GM PACKET PO SCH (08:26)
--- NOTE | 2018-12-21 10:56 | MISCELLANEOUS PROVIDER NOTE ---
Miscellaneous Provider Note - - Note: Subjective: Patient seen at bedside with confusion which appears to be his baseline now. Patient has refused per EMS to go to [facility] for which patient was accepted. Patient has not had fevers chills nausea vomiting GI or symptoms or chest pain. Currently awaiting social work for an official mental health examination. Next Objective: Vital signs hemodynamically stable. Labile blood pressures. General: Patient is alert and oriented but not to time place or person. Patient's Mini-Mental exam was approximately 9-10 which places him at moderate to severe in terms of cognitive deficits. HEENT: NCAT. Pupils equal round react light and accommodation/extraocular muscles are bilateral intact. Oropharynx clear. Neck no JVD no bruits no lymphadenopathy CV/lungs: S1-S2 within normal limits no murmurs/gallops/clicks. CTA BL. Abdomen: Soft nontender nondistended positive bowel sounds all quadrants no hepatosplenomegaly next para extremities/skin: No edema clubbing or cyanosis. Neuro: No psycho motor retardation. Mini-Mental exam approximately 9-10 with cognitive deficits. Confusion and tangential present with no psychosis. Amnesia present. Labs: Reviewed next breath imaging studies: Reviewed. MRI dated 12/01/16 shows prominent diffuse atrophy involving neural anatomy above and below the tentorium with prominent ventricles likely secondary to atrophy, nonspecific multifocal cerebral white matter disease, the usual gamut of white matter conditions may be considered. There is also some T2 flaring at posterior fossa involving the cameron, left middle cerebellar pedicle and extending posteriorly into the left cerebellar hemisphere. This is a nonspecific pattern however postinflammatory versus post ischemic versus demyelinating process may be considered. Assessment/plan: (1) Hepatic encephalopathy; Stable Assessment/Plan: Unchanged. Is on Lactulose and Rifaximin. Current ammonia level would not be the cause of patient's current confusion and encephalopathy. Ammonia level 33.0 (2) Wernicke's encephalopathy deemed to be chronic at this point due to prior MRI dated 12/01/16 which shows atrophy which is extensive to include the neural anatomy above and below the tentorium with prominent ventricles along with T2 hyperintensity flaring to involve the cameron and left middle cerebellar pedicle and extending posteriorly into the left cerebellar hemisphere. Will increase thiamine to 100 mg p.o. 3 times daily. This is likely patient's baseline confusion status as patient has a mentally mental exam that is moderate to severe and cognitive deficits and medically would be cognitively impaired to make appropriate decisions on his own behalf. 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 In addition DPOA () will need to make medical decisions on patient's behalf if indeed patient is unable to make medical decisions on his own behalf. (3) ETOH Cirrhosis of liver with ascites Qualifiers: Hepatic cirrhosis type: alcoholic cirrhosis Qualified Code(s): K70.31 - Alcoholic cirrhosis of liver with ascites Assessment/Plan: Stable (4) Cerebellar ataxia With a history of multiple falls Assessment/Plan: Unchanged. Walks with a walker with PT. Patient's also had mentioned on 11/10 that patient had a fall For which she had a laceration to the back of his head which he refused any type of medical care and she decided to mention that on 12/21/18 and thought that this may be pertinent to patient's care and/or contribution to his confusion. No neuroimaging was done on admission. 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 However it is possible that patient may have had a postconcussive syndrome after 11/10/18. (5) Venous stasis dermatitis of both lower extremities Assessment/Plan: Stable (6) Macrocytic anemia Assessment/Plan: Stable. 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 (8) Cellulitis Qualifiers: Site of cellulitis of extremity: lower extremity Assessment/Plan: Resolved, is off antibiotics (9) Hypomagnesemia secondary to nutritional deficiencies as it pertains to patient's chronic alcohol abuse. Will place on mag oxide 800 mg p.o. with meals. (10) History of urinary incontinence has a chronic Woody (11) Generalized weakness secondary to above we will continue with physical therapy
--- NOTE | 2018-12-21 12:13 | DISCHARGE SUMMARY ---
Discharge Summary Admit Date: 12/09/18 Discharge Date: 12/21/18 Discharging Provider: Dr. Sr Primary Care Provider: Carola Rai Code Status: Do Not Attempt Resuscitation Condition at Discharge: Stable Discharge Disposition: SNF DC/Xfer Discharge Facility Name: [facility] - DIAGNOSES Admission Diagnoses: (1) Hepatic encephalopathy (2) Cellulitis (3) Macrocytosis (4) Generalized weakness (5) Ataxia (6) Urinary incontinence (7) Hypokalemia (8) Hypomagnesemia (9) Nodule on liver (10) Cirrhosis of liver with ascites (11) Coagulopathy Discharge Diagnoses with Status of Each Condition: (1) Hospital-acquired E. 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 Woody catheter was placed on admission. Status post removal (14) Chronic kidney disease stage II. (15) Generalized weakness secondary to above - HPI History of Present Illness: This is a 58 y/o male withan extensive hx of etoh abuse, HTN, ETOH liver cirrhosis, cholelithiasis, chronic BLLE edema with dermatoses, urinary incontinence associated with hepatic recurrent encephalopthy, elevated tumor marker CA 19-9, liver nodule, pancytopenia, macrocytosis p/w weakness and confusion. In the emergency department patient was seen to have altered mental status for the past 2 weeks. Increased difficulty walking and difficulty with cognition and finding words. states this is happened in the past when his ammonia levels have been high. He has prescribed Lasix for home but is not kelsi ing this. Has been urinating on himself as well and has erythema to the bilateral legs now. Unclear if he is having fevers at home or not. Nothing makes it better or worse. Last drink was 2 weeks ago per . Sepsis workup initiated, no withdrawal signs or symptoms seen, no fevers, VSS, slightly hypertensive, ECG w/o arrhythmias. CBC shows macrocytosis mild anemia without bleeding issues. Vanco/zosyn x 1 dose given in ED. Ammonia level was surprisingly 42.3, T bili of 2.0, patient did have hypokalemia with a potassium of 2.9, magnesium of 1.5, denies taking Lasix. Patient has extensive bilateral lower extremity edema with erysipelas streaking up to left medial aspect of thigh with dermatosis and denuded areas of skin. states that patient has urinary incontinence and at times there are issues with patient's hygiene. Lactic acid was only 0.8. Patient denies any withdrawal symptoms however does have some involuntary movements with asterixis noted along with gait disturbance balance issues for which confirms that he only "furniture and wall walks" while using a cane. Unbeknownst to anybody that DPOA and did not mentioned Earlier is that patient had a fall on 11/10/18 and had a huge laceration on the back of his head for which he refused medical treatment and or care was concerned on patient's confusion if this was attributable to this fall. - CONSULTS | PROCEDURES Procedures: Woody catheter on admission subsequently discontinued on 12/24/18 - HOSPITAL COURSE Hospital Course: This is a 58 y/o male with an extensive hx of etoh abuse, HTN, ETOH liver cirrhosis, cholelithiasis, chronic BLLE edema with dermatoses, urinary incontinence associated with hepatic recurrent encephalopthy, elevated tumor marker CA 19-9, liver nodule, pancytopenia, macrocytosis p/w weakness and c onfusion. Patient was placed on lactulose as well as rifaximin throughout hospitalization along with electrolyte disturbances which were corrected with a low magnesium and low potassium. Patient with extensive bilateral lower extremity edema with erysipelas streaking up the left medial aspect of the thigh with underlying denuded skin and venous stasis dermatosis. Patient had urinary incontinence on admission and was placed on Woody catheter and continued throughout hospitalization. Patient had involuntary movements with asterixis along with gait disturbances ataxic wide-based gait for which was addressed by physical therapy. Patient had an MRI previously in 2017 which showed essentially alcohol type dementia with atrophy consistent with Wernicke's encephalopathy which was essentially chronic. Due to patient's ammonia level on discharge at 33.0 and a sodium of 132 with a creatinine of 1.0 and magnesium 1.4 patient was was deemed to be medically cleared for transfer to continue with physical therapy at [facility] in [facility]. However, due to EMS not understanding the entire clinical case of patient with chronic encephalopathy they defaulted on patient's "wishes" of refusing care to go to [facility]dc facility. Patient had nephrology social worker to follow-up with mental health status evaluation and with clinical evidence of cognitive deficits and inability to make sound medical decisions on his own behalf. Patient will Continue with medical management along with physical therapy and to address patient's ongoing cognitive deficits as it relates to chronic he Wernicke's encephalopathy with alcoholic type dementia. Patient's also had mentioned on 11/10 that patient had a fall For which she had a laceration to the back of his head which he refused any type of medical care and she decided to mention that on 12/21/18 and thought that this may be pertinent to patient's care and/or contribution to his confusion. No neuroimaging was done on admission. I had advised the nurse that even if I would do a CT of the head and if there was even evidence of a subdural hematoma and that it would not size changer due to the fall and event being a month out with the likelihood of coagulated blood being present. However it is possible that patient may have had a postconcussive syndrome after 11/10/18. Patient had a Woody catheter on admission, Had been in place for approximately 14 days. Patient subsequently developed hospital-acquired E. coli for which he had also a concomitant UTI which was asymptomatic with no fevers no chills however poor historian was growing out E. coli which was sensitive to quinolones. Patient was started on IV Levaquin for approximately 2 days. Repeat blood cultures were drawn prior to discharge. Patient will require approximately 2 weeks total of antibiotics for in an day on 01/06/19. Patient was also managed for his Warnicke's encephalopathy. Deemed to be chronic at this point due to prior MRI dated 12/01/16 which shows atrophy which is extensive to include the neural anatomy above and below the tentorium with prominent ventric les along with T2 hyperintensity flaring to involve the cameron and left middle cerebellar pedicle and extending posteriorly into the left cerebellar hemisphere. Will increase thiamine to 100 mg p.o. 3 times daily. This is likely patient's baseline confusion status as patient has a mentally mental exam that is moderate to severe and cognitive deficits and medically would be cognitively impaired to make appropriate decisions on his own behalf. We will obtain an official mental health exam as per nephrology social worker. In addition DPOA () will need to make medical decisions on patient's behalf if indeed patient is unable to make medical decisions on his own behalf. In addition patient was managed for orthostatic hypotension proven on orthostats and given mid a drain PRN with parameters. Patient's hepatic encephalopathy essentially had resolved lactulose was decreased due to copious 3-4 bowel movements a day. Rifaximin will be continued and medical management such as physical therapy OT and speech. Physical therapy had mentioned that patient had reached a plateau to his progress and needs constant supervision. Bilateral venous stasis dermatitis of lower extremities with an ankle-brachial index to the right and to the left were 1.2 patient continued on wound care with nystatin and zinc which would be continued at [facility] facility. Patient's macrocytic anemia was essentially stable and continue with thiamine multivitamins. Patient's electrolyte disturbance with correction of hyponatremia hypomagnesemia will be continued as well, Chronic kidney disease stage II with the avoidance of nephrotoxic agents patient will be on diuretics and Aldactone and will need to have CBC and renal panel everyweekly.PCP to follow-up in 1-2 weeks. - ALLERGIES Allergies/Adverse Reactions: Allergies Allergy/AdvReac Type Severity Reaction Status Date / Time No Known Drug Allergies Allergy Verified 12/09/18 22:10 - MEDICATIONS Home Medications: Ambulatory Orders Medication Instructions Recorded Confirmed Lactulose 40 gm PO TIDWM #100 bottle 12/18/18 Magnesium Oxide [Mag Ox] 400 mg PO DAILYWM #15 tablet 12/18/18 Multivitamin W/Minerals [Theragran 1 tab PO DAILYWM #30 tablet 12/18/18 M] Nystatin Cream [Mycostatin Cream] 1 applic TOP BID #1 tube 12/18/18 Spironolactone [Aldactone] 25 mg PO DAILY #30 tablet 12/18/18 Thiamine [Vitamin B-1] 100 mg PO DAILY #30 tablet 12/18/18 Zinc Oxide [Diaper Rash] 1 applic TP BID PRN #1 tube 12/18/18 rifAXIMin [Xifaxan] 550 mg PO BID #60 tablet 12/18/18 Diphenoxylate/Atropine [Lomotil] 1 tab PO QID PRN #0 tablet 12/25/18 Famotidine [Pepcid] 20 mg PO BID tablet 12/25/18 LORazepam [Ativan] 0.5 mg PO Q6H PRN tablet 12/25/18 Lactulose 30 gm PO BIDWM bottle 12/25/18 Loperamide [Imodium] 2 mg PO QID PRN capsule 12/25/18 Magnesium Oxide [Mag Ox] 800 mg PO DAILYWM tablet 12/25/18 Midodrine 10 mg PO TID PRN tablet 12/25/18 Nystatin [Nystop] 1 applic TOP BID bottle 12/25/18 Ondansetron Odt [Zofran Odt] 4 mg TL Q6HR PRN tablet 12/25/18 levoFLOXacin [Levaquin] 500 mg PO DAILY 13 Days #13 tablet 12/25/18 - PHYSICAL EXAM AT DISCHARGE General Appearance: positive: No acute distress, Other (Baseline confusion from chronic encephalopathy) Eyes Bilateral: positive: Normal inspection, PERRL, EOMI ENT: positive: ENT inspection nml, Pharynx nml, No signs of dehydration Neck: positive: Nml inspection, Thyroid nml, No JVD, Trachea midline. negative: Thyromegaly Respiratory: positive: Chest non-tender, No respiratory distress, Breath sounds nml Cardiovascular: positive: Regular rate & rhythm, No murmur, No gallop Peripheral Pulses: positive: 2+ Abdomen: positive: Non-tender, No organomegaly, Nml bowel sounds, No distention. negative: Tenderness Skin: positive: Color nml, No rash, Warm Extremities: positive: Non-tender, Full ROM, Nml appearance Neurologic/Psychiatric: positive: Disoriented to person, Disoriented to place, Disoriented to time, Depressed mood/affect, Other (Patient is alert but does not know the time place or person. Poor cognitive abilities and deficits present. No psychomotor retardation.) Babinski Reflex: Right: Absent, Left: Absent - LABS Result Diagrams: 12/25/18 05:15 12/25/18 05:15 - DIAGNOSTIC IMAGING Diagnostic Imaging Results: Final report reviewed - SEPSIS Current Stage of Sepsis: Ruled out - QUALITY (Female Hip Fx Only) Was patient sent home on osteoporosis medication?: No - FOLLOW UP Follow Up: PCP to follow-up in 2-3 weeks - TIME SPENT Time Spent in Discharge (Minutes): 35
[2018-12-21] MEDS: ZINC SULFATE 220 MG CAPSULE PO SCH (12:29)
[2018-12-21] MEDS: MIN OIL/DIMETHICON/COCONUT OIL 92 GM TUBE TOP PRN (22:25)
[2018-12-22] MEDS: SODIUM CHLORIDE FLUSH 0.9% 10 ML SYRINGE IVP SCH ×3 (05:05→15:51)
[2018-12-22] MEDS: rifAXIMin 550 MG TABLET PO SCH ×2 (08:28→20:19)
[2018-12-22] MEDS: FAMOTIDINE 20 MG TABLET PO SCH ×2 (08:28→20:19)
[2018-12-22] MEDS: MULTIVITAMIN W/MINERALS TABLET PO SCH (08:28)
[2018-12-22] MEDS: SPIRONOLACTONE 25 MG TABLET PO SCH (08:28)
[2018-12-22] MEDS: ZINC SULFATE 220 MG CAPSULE PO SCH (08:28)
[2018-12-22] MEDS: THIAMINE 100 MG TABLET PO SCH (08:28)
[2018-12-22] MEDS: MAGNESIUM OXIDE 400 MG TABLET PO SCH (08:28)
[2018-12-22] MEDS: NYSTATIN CREAM 15 GM TUBE TOP SCH ×2 (08:29→20:20)
[2018-12-22] MEDS: NYSTATIN POWDER 15 GM TOP SCH ×2 (08:29→20:19)
[2018-12-22] MEDS: LACTULOSE 10 GM/15 ML BOTTLE PO SCH ×3 (08:29→16:17)
[2018-12-22] MEDS: POLYETHYLENE GLYCOL 3350 17 GM PACKET PO SCH (08:29)
--- NOTE | 2018-12-22 11:00 | XRAY Report ---
Reason: SOb with high WBC Procedure Date: 12/22/2018 Accession Number: [id number] / [id number] Procedure: XR - Chest 1 View X-Ray CPT Code: 80301 FULL RESULT: EXAM: CHEST RADIOGRAPHY EXAM DATE: 12/22/2018 09:48 AM. CLINICAL HISTORY: SOb with high WBC. COMPARISON: 12/05/2016. TECHNIQUE: 1 view. FINDINGS: Lungs/Pleura: No focal opacities evident. No pleural effusion. No pneumothorax. Mediastinum: Within exam limitations, the cardiomediastinal contour is normal. Other: None. IMPRESSION: Negative single view chest. RADIA
[2018-12-22 11:10] LABS: BILIRUBIN,URINE NEGATIVE (NEGATIVE); CLARITY,URINE HAZY (CLEAR); GLUCOSE, URINE (UA) NEGATIVE (NEGATIVE); KETONES,URINE (UA) NEGATIVE (NEGATIVE); LEUKOCYTE ESTERASE, URINE MODERATE (NEGATIVE); NITRITE,URINE NEGATIVE (NEGATIVE); OCCULT BLOOD,URINE MODERATE (NEGATIVE); PROTEIN,URINE 30 mg/dL (NEGATIVE); UROBILINOGEN,URINE 0.2 (NORMAL) E.U./dL (NORMAL)
[2018-12-22 11:32] LABS: BACTERIA,URINE Few /HPF (None Seen); SQUAMOUS EPITHELIAL CELL,UR NONE SEEN (<= Few); WBC CLUMPS,URINE PRESENT
[2018-12-22] MEDS ORDERED: MAGNESIUM OXIDE 400 MG TABLET PO ONE (12:00)
[2018-12-22] MEDS ORDERED: LOPERAMIDE 2 MG CAPSULE PO PRN (12:52)
[2018-12-22] MEDS ORDERED: DIPHENOX/ATROPINE 2.5/0.025 MG TABLET PO PRN (12:52)
--- NOTE | 2018-12-22 12:56 | MISCELLANEOUS PROVIDER NOTE ---
Miscellaneous Provider Note - - Note: Subjective: Patient seen at bedside with no acute events. Patient has baseline confusion attributable to chronic alcohol abuse with no current symptoms of withdrawals, chest pain, maculopapular rashes, joint tenderness or redness, GI or symptoms. Awaiting placement [facility] facility. Objective: Vital signs hemodynamically stable. Blood pressure 116/66. Oxime mass 100% O2 saturation. RR 24. Heart rate is 61. General: Patient is alert and oriented but not to time place or person. Patient's Mini-Mental exam was approximately 9-10 which places him at moderate to severe in terms of cognitive deficits. HEENT: NCAT. Pupils equal round react light and accommodation/extraocular muscles are bilateral intact. Oropharynx clear. Neck no JVD no bruits no lymphadenopathy CV/lungs: S1-S2 within normal limits no murmurs/gallops/clicks. CTA BL. Abdomen: Soft nontender nondistended positive bowel sounds all quadrants no hepatosplenomegaly next para extremities/skin: No edema clubbing or cyanosis. Neuro: No psycho motor retardation. Mini-Mental exam approximately 9-10 with cognitive deficits. Confusion and tangential present with no psychosis. Amnesia present. Labs: Reviewed next breath imaging studies: Reviewed. MRI dated 12/01/16 shows prominent diffuse atrophy involving neural anatomy above and below the tentorium with prominent ventricles likely secondary to atrophy, nonspecific multifocal cerebral white matter disease, the usual gamut of white matter conditions may be considered. There is also some T2 flaring at posterior fossa involving the cameron, left middle cerebellar pedicle and extending posteriorly into the left cerebellar hemisphere. This is a nonspecific pattern however postinflammatory versus post ischemic versus demyelinating process may be considered. Assessment/plan: (1) Wernicke's encephalopathy Deemed to be chronic at this point due to prior MRI dated 12/01/16 which shows atrophy which is extensive to include the neural anatomy above and below the tentorium with prominent ventricles along with T2 hyperintensity flaring to involve the cameron and left middle cerebellar pedicle and extending posteriorly into the left cerebellar hemisphere. Will increase thiamine to 100 mg p.o. 3 times daily. This is likely patient's baseline confusion status as patient has a mentally mental exam that is moderate to severe and cognitive deficits and medically would be cognitively impaired to make appropriate decisions on his own behalf. We will obtain an official mental health exam as per licensed master social worker. In addition DPOA () will need to make medical decisions on patient's behalf if indeed patient is unable to make medical decisions on his own behalf. (2) Hepatic encephalopathy; Resolved Assessment/Plan: Is on Lactulose and Rifaximin. Current ammonia level would not be the cause of patient's current confusion and encephalopathy. Ammonia level 33.0 (3) Leukocytosis Unclear of etiology, UA appears to have pyuria however this is from a Woody catheter specimen, urine culture to follow, 2 sets of blood cultures, Chest x- ray does not look as patient has consolidation. In addition patient did come in with lower extremity cellulitis erysipelas being a MSSA carrier and was on IV Ancef. Would initiate Bactrim double strength 1 tab p.o. twice daily for a total of 7-10 days if patient tolerates. 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 Walks with a walker with PT. Patient's also had mentioned on 11/10 that patient had a fall For which she had a laceration to the back of his head which he refused any type of medical care and she decided to mention that on 12/21/18 and thought that this may be pertinent to patient's care and/or contribution to his confusion. No neuroimaging was done on admission. I had advised the nurse that even if I would do a CT of the head and if there was even evidence of a subdural hematoma and that it would not record changer due to the fall and event being a month out with the likelihood of coagulated blood being present. However it is possible that patient may have had a postconcussive syndrome after 11/10/18. (6) Venous stasis dermatitis of both lower extremities Assessment/Plan: Stable, Ankle-brachial index to the right was 1.2 and left ankle-brachial index was 1.2 as well. Wound care service note on 12/11 recommendations for compression and the application of nystatin as well as zinc with barrier protection. (7) Macrocytic anemia Assessment/Plan: Stable. Is on Thiamine, MVI's (8) MRSA carrier Assessment/Plan: Difficult for TELEPHONE SALES AGENT to find placement at a SNF for PT rehab needs, due to needing a private room for MRSA precautions. (9) Cellulitis Qualifiers: Site of cellulitis of extremity: lower extremity Assessment/Plan: Resolved, is off antibiotics, Had received IV Ancef course. (10) Hypomagnesemia secondary to nutritional deficiencies as it pertains to patient's chronic alcohol abuse. Will place on mag oxide 800 mg p.o. with meals. (11) History of urinary incontinence has a chronic Woody. Will continue to monitor as this will need to be changed periodically. (12) Generalized weakness secondary to above we will continue with physical therapy. utility service worker is working on [facility] facility placement. Continue with GI and DVT prophylaxis. Patient requires more than 96 hours of inpatient hospitalization due to ongoing medical management and placement issues.
[2018-12-23] MEDS: SODIUM CHLORIDE FLUSH 0.9% 10 ML SYRINGE IVP SCH ×3 (05:08→17:40)
[2018-12-23 05:52] LABS: BASOPHILS % (AUTO) 0.4 %; EOSINOPHILS # (AUTO) 0.1 10^3/uL (0.0-0.7); EOSINOPHILS % (AUTO) 0.6 %; HGB - HEMOGLOBIN 12.2 g/dL (14.0-18.0); LYMPHOCYTES % (AUTO) 10.6 %; MEAN CORPUSCULAR HGB CONC 33.5 g/dL (32.0-36.0); MEAN CORPUSCULAR VOLUME 98.4 fL (80.0-94.0); MEAN PLATELET VOLUME 9.5 fL (7.4-11.4); MONOCYTES # (AUTO) 1.2 10^3/uL (0.0-1.0); MONOCYTES % (AUTO) 12.6 %; NEUTROPHILS # (AUTO) 7.4 10^3/uL (1.5-6.6); NEUTROPHILS % (AUTO) 75.8 %; PLT - PLATELET COUNT 163 10^3/uL (130-450); RED BLOOD COUNT 3.69 10^6/uL (4.70-6.10); RED CELL DISTRIBUTION WIDTH 13.1 % (12.0-15.0); WHITE BLOOD COUNT 9.8 x10^3/uL (4.8-10.8)
[2018-12-23 06:05] LABS: ALBUMIN 2.3 g/dL (3.2-5.5); CALCIUM 9.1 mg/dL (8.5-10.3); CREATININE 0.9 mg/dL (0.6-1.2); MAGNESIUM 1.5 mg/dL (1.7-2.8); PHOSPHORUS 2.7 mg/dL (2.5-4.6)
[2018-12-23] MEDS ORDERED: MIDODRINE 2.5 MG TABLET PO PRN (08:00)
[2018-12-23] MEDS: LACTULOSE 10 GM/15 ML BOTTLE PO SCH ×3 (08:18→17:39)
[2018-12-23] MEDS: FAMOTIDINE 20 MG TABLET PO SCH ×2 (08:20→21:46)
[2018-12-23] MEDS: NYSTATIN CREAM 15 GM TUBE TOP SCH ×2 (08:20→21:46)
[2018-12-23] MEDS: MULTIVITAMIN W/MINERALS TABLET PO SCH (08:20)
[2018-12-23] MEDS: THIAMINE 100 MG TABLET PO SCH (08:20)
[2018-12-23] MEDS: rifAXIMin 550 MG TABLET PO SCH ×2 (08:20→21:45)
[2018-12-23] MEDS: NYSTATIN POWDER 15 GM TOP SCH ×2 (08:20→21:46)
[2018-12-23] MEDS: MAGNESIUM OXIDE 400 MG TABLET PO SCH (08:20)
[2018-12-23] MEDS: SPIRONOLACTONE 25 MG TABLET PO SCH (08:21)
[2018-12-23] MEDS: POLYETHYLENE GLYCOL 3350 17 GM PACKET PO SCH (08:21)
[2018-12-23] MEDS: levoFLOXacin 500 MG/100 ML 500 MG/100 ML BAG IV SCH (11:17)
[2018-12-23] MEDS ORDERED: SODIUM CHLORIDE 0.9% 500 ML IV ONE (11:17)
--- NOTE | 2018-12-23 12:29 | MISCELLANEOUS PROVIDER NOTE ---
Miscellaneous Provider Note - - Note: Subjective: Patient with generalized weakness that has been progressive with physical therapy stating that he has plateaued in his progress. Patient does not relay fevers chills flank pain and is a poor historian. Patient has a chronic indwelling Woody catheter that was placed approximately 14 days ago. Patient has baseline confusion attributable to his Wernicke's encephalopathy. Objective: Vital signs hemodynamically stable. Positive orthostasis noted. Afebrile. Heart rate 68. Blood pressure 121/64. (93/46). RR 14. 95% O2 saturation on room air. General: Chronically ill-appearing. Patient appears to be deconditioned with generalized weakness. Has obvious neurocognitive deficits. HEENT: NCAT. Pupils equal round react light and accommodation/extraocular muscles are bilateral intact. Oropharynx clear. Neck no JVD no bruits no lymphadenopathy CV/lungs: S1-S2 within normal limits no murmurs/gallops/clicks. CTA BL. Abdomen: Soft nontender nondistended positive bowel sounds all quadrants no hepatosplenomegaly next para extremities/skin: No edema clubbing or cyanosis. Neuro: No psycho motor retardation. Mini-Mental exam approximately 9-10 with cognitive deficits. Confusion and tangential present with no psychosis. Amnesia present. Labs: Reviewed Imaging studies: Reviewed. MRI dated 12/01/16 shows prominent diffuse atrophy involving neural anatomy above and below the tentorium with prominent ventricles likely secondary to atrophy, nonspecific multifocal cerebral white matter disease, the usual gamut of white matter conditions may be considered. There is also some T2 flaring at posterior fossa involving the cameron, left middle cerebellar pedicle and extending posteriorly into the left cerebellar hemisphere. This is a nonspecific pattern however postinflammatory versus post ischemic versus demyelinating process may b e considered. Assessment/plan: (1) Hospital-acquired E. coli bacteremia We will start empirically on IV Levaquin. Patient with risk factors currently on an chronic indwelling Woody catheter which shows pyuria however unreliable specimen, white count has now gone down to normal. No fevers no flank pain however poor historian and due to chronic alcohol abuse may be immunosuppressed due to malnutrition. Patient had a Woody catheter 14 days prior and will need to change at the 30-day elle. (2) Hospital-acquired UTI UA with pyuria and urine culture growing E. coli >100K. Most likely as a result of chronic indwelling Woody, Patient's poor nutritional status and possible underlying urinary stases. (3) Wernicke's encephalopathy Deemed to be chronic at this point due to prior MRI dated 12/01/16 which shows atrophy which is extensive to include the neural anatomy above and below the tentorium with prominent ventricles along with T2 hyperintensity flaring to involve the cameron and left middle cerebellar pedicle and extending posteriorly into the left cerebellar hemisphere. Will increase thiamine to 100 mg p.o. 3 times daily. This is likely patient's baseline confusion status as patient has a mentally mental exam that is moderate to severe and cognitive deficits and medically would be cognitively impaired to make appropriate decisions on his own behalf. We will obtain an official mental health exam as per social security benefits interviewer. In addition DPOA () will need to make medical decisions on patient's behalf if indeed patient is unable to make medical decisions on his own behalf. (4) Orthostatic hypotension Continue with midodrine 10 mg PO TID as needed with parameters (5) Hepatic encephalopathy; Resolved Assessment/Plan: Is on Lactulose and Rifaximin. Previous ammonia level would not be the cause of patient's current confusion and encephalopathy. Last ammonia level was within normal limits at 33. 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 Walks with a walker with PT. However PT has mentioned a a plateau to his progress and needs constant supervision. Patient's also had mentioned on 11/10 that patient had a fall For which she had a laceration to the back of his head which he refused any type of medical care and she decided to mention that on 12/21/18 and thought that this may be pertinent to patient's care and/or contribution to his confusion. No neuroimaging was done on admission. I had advised the nurse that even if I would do a CT of the head and if there was even evidence of a subdural hematoma and that it would not belt changer due to the fall and event being a month out with the likelihood of coagulated blood being present. However it is possible that patient may have had a postconcussive syndrome after 2/19/19. (7) Venous stasis dermatitis of both lower extremities Assessment/Plan: Stable, Ankle-brachial index to the right was 1.2 and left ankle-brachial index was 1.2 as well. Wound care service note on 12/11 recommendations for compression and the application of nystatin as well as zinc with barrier protection. (8) Macrocytic anemia Assessment/Plan: Stable. Is on Thiamine, MVI's (9) MRSA carrier Assessment/Plan: Difficult for BRAILLE CODER to find placement at a SNF for PT rehab needs, due to needing a private room for MRSA precautions. (10) Cellulitis; Present on admission Qualifiers: Site of cellulitis of extremity: lower extremity Assessment/Plan: Resolved, is off antibiotics, Had received IV Ancef course. Now will be on IV Levaquin for his UTI/E. coli bacteremia. (11) Hypomagnesemia secondary to nutritional deficiencies as it pertains to patient's chronic alcohol abuse. Will place on mag oxide 800 mg p.o. with meals. (12) History of urinary incontinence has a chronic Woody. Woody catheter was placed 14 days ago. This was done due to patient's erythematous regions to the perianal, as well as buttocks and scrotum. Will continue to monitor as this will need to be changed At the 30-day elle. (13) Generalized weakness secondary to above we will continue with physical therapy. cardroom worker is working on [facility]. Continue with GI and DVT prophylaxis. Attestation: Patient requires more than 96 hours of inpatient hospitalization due to ongoing medical management and placement issues.
[2018-12-23] MEDS: SACCHAROMYCES BOULARDII 250 MG CAPSULE PO SCH ×2 (12:52→17:40)
[2018-12-24 05:56] LABS: BASOPHILS # (AUTO) 0.1 10^3/uL (0.0-0.1); BASOPHILS % (AUTO) 0.8 %; EOSINOPHILS # (AUTO) 0.2 10^3/uL (0.0-0.7); LYMPHOCYTES # (AUTO) 1.1 10^3/uL (1.5-3.5); LYMPHOCYTES % (AUTO) 15.4 %; MEAN CORPUSCULAR HEMOGLOBIN 32.6 pg (27.0-31.0); MEAN CORPUSCULAR HGB CONC 33.9 g/dL (32.0-36.0); MEAN CORPUSCULAR VOLUME 96.1 fL (80.0-94.0); MEAN PLATELET VOLUME 9.5 fL (7.4-11.4); MONOCYTES # (AUTO) 1.2 10^3/uL (0.0-1.0); MONOCYTES % (AUTO) 15.8 %; NEUTROPHILS # (AUTO) 4.9 10^3/uL (1.5-6.6); PLT - PLATELET COUNT 183 10^3/uL (130-450); RED BLOOD COUNT 3.68 10^6/uL (4.70-6.10); RED CELL DISTRIBUTION WIDTH 12.9 % (12.0-15.0); WHITE BLOOD COUNT 7.4 x10^3/uL (4.8-10.8)
[2018-12-24 06:14] LABS: ALBUMIN 2.2 g/dL (3.2-5.5); CALCIUM 8.6 mg/dL (8.5-10.3); CREATININE 0.9 mg/dL (0.6-1.2); MAGNESIUM 1.6 mg/dL (1.7-2.8); PHOSPHORUS 3.1 mg/dL (2.5-4.6)
[2018-12-24] MEDS: SODIUM CHLORIDE FLUSH 0.9% 10 ML SYRINGE IVP SCH ×3 (06:54→21:17)
[2018-12-24] MEDS: MULTIVITAMIN W/MINERALS TABLET PO SCH (08:35)
[2018-12-24] MEDS: SPIRONOLACTONE 25 MG TABLET PO SCH (08:35)
[2018-12-24] MEDS: LACTULOSE 10 GM/15 ML BOTTLE PO SCH ×3 (08:36→16:59)
[2018-12-24] MEDS: FAMOTIDINE 20 MG TABLET PO SCH ×2 (08:36→21:16)
[2018-12-24] MEDS: SACCHAROMYCES BOULARDII 250 MG CAPSULE PO SCH ×2 (08:36→16:59)
[2018-12-24] MEDS: MAGNESIUM SULFATE 2 GRAM 2 GM/50 ML BAG IV ONE ×2 (08:36→10:54)
[2018-12-24] MEDS: THIAMINE 100 MG TABLET PO SCH (08:36)
[2018-12-24] MEDS: rifAXIMin 550 MG TABLET PO SCH ×2 (08:36→21:16)
[2018-12-24] MEDS: MAGNESIUM OXIDE 400 MG TABLET PO SCH (08:36)
[2018-12-24] MEDS: levoFLOXacin 500 MG/100 ML 500 MG/100 ML BAG IV SCH (08:37)
[2018-12-24] MEDS: NYSTATIN CREAM 15 GM TUBE TOP SCH ×2 (08:37→21:17)
[2018-12-24] MEDS: NYSTATIN POWDER 15 GM TOP SCH ×2 (08:37→21:17)
[2018-12-24] MEDS: POLYETHYLENE GLYCOL 3350 17 GM PACKET PO SCH (08:37)
--- NOTE | 2018-12-24 08:57 | MISCELLANEOUS PROVIDER NOTE ---
Miscellaneous Provider Note - - Note: Subjective: Patient with no acute events. Patient displays baseline confusion secondary to his underlying Wernicke's encephalopathy. Currently receiving treatment for UTI. Denies fever, chest pain, shortness of breath, diarrhea, flank pain, maculopapular rashes, or joint tenderness. Patient is a poor historian. Objective: Vital signs hemodynamically stable. Positive orthostasis noted. Afebrile. Heart rate 67. RR 20. Blood pressure 138/69. General: Chronically ill-appearing. Patient appears to be deconditioned with generalized weakness. Has obvious neurocognitive deficits. HEENT: NCAT. Pupils equal round react light and accommodation/extraocular muscles are bilateral intact. Oropharynx clear. Neck no JVD no bruits no lymphadenopathy CV/lungs: S1-S2 within normal limits no murmurs/gallops/clicks. CTA BL. Abdomen: Soft nontender nondistended positive bowel sounds all quadrants no hepatosplenomegaly next para extremities/skin: No edema clubbing or cyanosis. Neuro: No psycho motor retardation. Mini-Mental exam approximately 9-10 with cognitive deficits. Confusion and tangential present with no psychosis. Amnesia present. Labs: Reviewed Imaging studies: Reviewed. MRI dated 12/01/16 shows prominent diffuse atrophy involving neural anatomy above and below the tentorium with prominent ventricles likely secondary to atrophy, nonspecific multifocal cerebral white matter disease, the usual gamut of white matter conditions may be considered. There is also some T2 flaring at posterior fossa involving the cameron, left middle cerebellar pedicle and extending posteriorly into the left cerebellar hemisphere. This is a nonspecific pattern however postinflammatory versus post ischemic versus demyelinating process may be considered. Assessment/plan: (1) Hospital-acquired E. coli bacteremia Continue IV Levaquin. Patient with risk factors currently on an chronic indwelling Woody catheter which shows pyuria however unreliable specimen, white count has now gone down to normal. No fevers no flank pain however poor historian and due to chronic alcohol abuse may be immunosuppressed due to malnutrition. Patient had a Woody catheter On admission and will discontinue this now that his scrotal and genitourinary erythematous areas are healing. Will need approximately 2 weeks of total Antibiotics with an End-date of 01/06/19. Patient was accepted to [facility]. (2) Hospital-acquired UTI UA with pyuria and urine culture growing E. coli >100K. Most likely as a result of chronic indwelling Woody, Patient's poor nutritional status and possible underlying urinary stases. We will discontinue Woody. (3) Wernicke's encephalopathy Deemed to be chronic at this point due to prior MRI dated 12/01/16 which shows atrophy which is extensive to include the neural anatomy above and below the tentorium with prominent ventricles along with T2 hyperintensity flaring to involve the cameron and left middle cerebellar pedicle and extending posteriorly into the left cerebellar hemisphere. Will increase thiamine to 100 mg p.o. 3 times daily. This is likely patient's baseline confusion status as patient has a mentally mental exam that is moderate to severe and cognitive deficits and med ically would be cognitively impaired to make appropriate decisions on his own behalf. We will obtain an official mental health exam as per social organization professor. In addition DPOA () will need to make medical decisions on patient's behalf if indeed patient is unable to make medical decisions on his own behalf. (4) Orthostatic hypotension Continue with midodrine 10 mg PO TID as needed with parameters (5) Hepatic encephalopathy; Resolved Assessment/Plan: Is on Lactulose and Rifaximin. Previous ammonia level would not be the cause of patient's current confusion and encephalopathy. Last ammonia level was within normal limits at 33. (6) ETOH Cirrhosis of liver with ascites Qualifiers: Hepatic cirrhosis type: alcoholic cirrhosis Qualified Code(s): K70.31 - Alcoholic cirrhosis of liver with ascites Assessment/Plan: Stable, Continue to follow and medically manage. 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 Walks with a walker with PT. However PT has mentioned a a plateau to his progress and needs constant supervision. Patient's also had mentioned on 11/10 that patient had a fall For which she had a laceration to the back of his head which he refused any type of medical care and she decided to mention that on 12/21/18 and thought that this may be pertinent to patient's care and/or contribution to his confusion. No neuroimaging was done on admission. I had advised the nurse that even if I would do a CT of the head and if there was even evidence of a subdural hematoma and that it would not foreign exchange clerk due to the fall and event being a month out with the likelihood of coagulated blood being present. However it is possible that patient may have had a postconcussive syndrome after 11/10/18. (8) Venous stasis dermatitis of both lower extremities Assessment/Plan: Stable, Ankle-brachial index to the right was 1.2 and left ankle-brachial index was 1.2 as well. Wound care service note on 12/11 recommendations for bambi cecile and the application of nystatin as well as zinc with barrier protection. (9) Macrocytic anemia Assessment/Plan: Stable. Is on Thiamine, MVI's (10) MRSA carrier Assessment/Plan: Difficult for PUBLIC AFFAIRS OFFICER to find placement at a SNF for PT rehab needs, due to needing a private room for MRSA precautions. (11) Cellulitis; Present on admission Qualifiers: Site of cellulitis of extremity: lower extremity Assessment/Plan: Resolved, Had received IV Ancef course.Currently on IV Levaquin for his UTI/E. coli bacteremia. (12) Electrolyte disturbances with Hyponatremia/Hypomagnesemia secondary to nutritional deficiencies as it pertains to patient's chronic alcohol abuse and his volume status. 2 g mag rider x1, Continue on mag oxide 800 mg p.o. with meals. (13) History of urinary incontinence has a chronic Woody. Owody catheter was placed on admission. This was done due to patient's erythematous regions to the perianal, as well as buttocks and scrotum. Discontinue Woody catheter. (14) Chronic kidney disease stage II. -Avoid nephrotoxic agents, baseline creatinine ranging 0.7-1.1 per [employer]. Current creatinine 0.9. Patient on diuretics and will need to be managed carefully. (15) Generalized weakness secondary to above we will continue with physical therapy. Patient will be [facility] [place] Continue with GI and DVT prophylaxis. Attestation: Patient requires more than 96 hours of inpatient hospitalization due to ongoing medical management and placement issues.
[2018-12-25] MEDS: SODIUM CHLORIDE FLUSH 0.9% 10 ML SYRINGE IVP SCH ×2 (01:16→08:08)
[2018-12-25 05:49] LABS: BASOPHILS # (AUTO) 0.1 10^3/uL (0.0-0.1); EOSINOPHILS # (AUTO) 0.2 10^3/uL (0.0-0.7); EOSINOPHILS % (AUTO) 2.8 %; HGB - HEMOGLOBIN 11.7 g/dL (14.0-18.0); LYMPHOCYTES # (AUTO) 1.4 10^3/uL (1.5-3.5); LYMPHOCYTES % (AUTO) 16.7 %; MEAN CORPUSCULAR HEMOGLOBIN 32.4 pg (27.0-31.0); MEAN CORPUSCULAR HGB CONC 33.8 g/dL (32.0-36.0); MEAN CORPUSCULAR VOLUME 95.8 fL (80.0-94.0); MEAN PLATELET VOLUME 9.7 fL (7.4-11.4); MONOCYTES # (AUTO) 1.2 10^3/uL (0.0-1.0); MONOCYTES % (AUTO) 14.8 %; NEUTROPHILS # (AUTO) 5.3 10^3/uL (1.5-6.6); NEUTROPHILS % (AUTO) 64.7 %; PLT - PLATELET COUNT 197 10^3/uL (130-450); RED BLOOD COUNT 3.61 10^6/uL (4.70-6.10); RED CELL DISTRIBUTION WIDTH 13.2 % (12.0-15.0); WHITE BLOOD COUNT 8.1 x10^3/uL (4.8-10.8)
[2018-12-25 05:59] LABS: ALBUMIN 2.2 g/dL (3.2-5.5); CALCIUM 8.8 mg/dL (8.5-10.3); CREATININE 0.9 mg/dL (0.6-1.2); MAGNESIUM 1.9 mg/dL (1.7-2.8); PHOSPHORUS 3.2 mg/dL (2.5-4.6)
--- NOTE | 2018-12-25 07:19 | Discharge Plan ---
"Discharge Plan for SNF / [facility] - Discharge Plan And Transition Orders Disposition: 03 SNF DC/Xfer Condition: Stable Allergies and Adverse Reactions: Allergies Allergy/AdvReac Type Severity Reaction Status Date / Time No Known Drug Allergies Allergy Verified 12/09/18 22:10 - SNF / [facility] Transition Orders Admit to (Facility): [facility] Under the care of (Name): Lee Martinez Discharge Diagnosis: (1) Hospital-acquired E. coli bacteremia (2) Hospital-acquired UTI (3) Wernicke's encephalopathy (4) Orthostatic hypotension (5) Hepatic encephalopathy; Resolved (6) ETOH Cirrhosis of liver with ascites (8) Venous stasis dermatitis of both lower extremities (9) Macrocytic anemia (10) MRSA carrier (11) Cellulitis; Present on admission (12) Electrolyte disturbances with Hyponatremia/Hypomagnesemia secondary to nutritional deficiencies (13) History of urinary incontinence has a chronic Woody. (14) Chronic kidney disease stage II. (15) Generalized weakness secondary to above Medicare Certification Statement: I certify that [facility] is medically necessary on a continuing basis for any of the conditions for which she/he is receiving care during hospitalization. Notify PCP of admission and forward orders to primary provider for signature. Weight on admission and: Daily Call PCP immediately if weight increases by: 2 kg Other Notification Orders: Call PCP immediately if patient develops dyspnea, chest pain/tightness or edema. House Bowel Program: No Additional Bowel Program Orders: If no BM after 2 days, nurse may give M.O.M. 30ml PO PRN and/or ducolax Supp 1 ID and/or MARK 250mg P.O., and/or senna 1-2 tabs PO. On day 3 nurse may give repeat above order until residents constipation is resolved. Annual Influenza Vaccine (between May 23 and December 20): Yes Two-step PPD per [facility] [phone] or approved exception documents: No Treatments & Other Orders: Please refer to MAR. Patient will be transported BLS with EMS picking patient up. We will reemphasize that patient's DPOA, Has precedence over patient's lack of medical decision capacity which he currently possesses with clear and obvious neurocognitive deficits as it is confirmed on patient's MRI as well as clinical presentation of Warnicke's encephalopathy. Lab Tests or X-ray Orders: Renal panel and CBC q. weekly Medication Orders: PLEASE REFER TO THE DISCHARGE MEDICATION LIST. Insulin Orders?: No - Medications New Prescriptions: Lactulose 40 gm PO TIDWM #100 bottle Magnesium Oxide [Mag Ox] 400 mg PO DAILYWM #15 tablet Multivitamin W/Minerals [Theragran M] 1 tab PO DAILYWM #30 tablet Nystatin Cream [Mycostatin Cream] 1 applic TOP BID #1 tube rifAXIMin [Xifaxan] 550 mg PO BID #60 tablet Spironolactone [Aldactone] 25 mg PO DAILY #30 tablet Thiamine [Vitamin B-1] 100 mg PO DAILY #30 tablet Zinc Oxide [Diaper Rash] 1 applic TP BID PRN #1 tube PRN Reason: Diaper Rash - Diet Type: No added salt Texture: Regular Liquids: Thin May have monthly special meal: Yes - Therapies | Activity Therapy: Evaluation | Treat if indicated: PT, OT, Swallowing / ST Rehabilitation Potential: Maximize functional status, Return to independent living, Maintain present ADL Functional Activity: Activity as Tolerated Assistance Devices: Walker Additional Instructions: You were here with hepatic encephalopathy from alcoholic cirrhosis. A cellulitis of the legs got a course of treatment completed. Please follow-up with your PCP after discharge from Rehab. Follow Up: PCP to follow-up in 1-2 weeks"
[2018-12-25] MEDS ORDERED: LACTULOSE 10 GM/15 ML BOTTLE PO SCH (08:00)
[2018-12-25] MEDS: MIN OIL/DIMETHICON/COCONUT OIL 92 GM TUBE TOP PRN (08:06)
[2018-12-25] MEDS: SACCHAROMYCES BOULARDII 250 MG CAPSULE PO SCH (08:07)
[2018-12-25] MEDS: MULTIVITAMIN W/MINERALS TABLET PO SCH (08:07)
[2018-12-25] MEDS: FAMOTIDINE 20 MG TABLET PO SCH (08:07)
[2018-12-25] MEDS: SPIRONOLACTONE 25 MG TABLET PO SCH (08:07)
[2018-12-25] MEDS: MAGNESIUM OXIDE 400 MG TABLET PO SCH (08:07)
[2018-12-25] MEDS: rifAXIMin 550 MG TABLET PO SCH (08:07)
[2018-12-25] MEDS: THIAMINE 100 MG TABLET PO SCH (08:08)
[2018-12-25 08:35] VITALS: BP 97/62
[2018-12-25] MEDS: POLYETHYLENE GLYCOL 3350 17 GM PACKET PO SCH (08:35)
[2018-12-25] MEDS ORDERED: levoFLOXacin 250 MG TABLET PO SCH (09:00)
[2018-12-25] MEDS: NYSTATIN POWDER 15 GM TOP SCH (09:07)
[2018-12-25] MEDS: NYSTATIN CREAM 15 GM TUBE TOP SCH (09:07)
[2018-12-25] MEDS ORDERED: LORazepam 1 MG TABLET SL SCH (11:00)
== END 2018-12-25 14:10 | DRG 442 ==
LOC: EDUNIT# → ED 22:01 → MS2 23:26 → OBSVTOIN 12-10 17:04
PROVIDERS: ADMIT Family Medicine; ATTEND Family Medicine
DX: K71.10 Toxic liver disease with hepatic necrosis, without coma (principal); T83.511A Infection and inflammatory reaction due to indwelling urethral catheter, initial encounter; N39.0 Urinary tract infection, site not specified; E51.2 Wernicke's encephalopathy; L03.116 Cellulitis of left lower limb; L03.115 Cellulitis of right lower limb; D68.4 Acquired coagulation factor deficiency; E87.1 Hypo-osmolality and hyponatremia; F10.20 Alcohol dependence, uncomplicated; K70.31 Alcoholic cirrhosis of liver with ascites; I12.9 Hypertensive chronic kidney disease with stage 1 through stage 4 chronic kidney disease, or unspecified chronic kidney disease; N18.2 Chronic kidney disease, stage 2 (mild); Z66 Do not resuscitate; D75.89 Other specified diseases of blood and blood-forming organs; G31.2 Degeneration of nervous system due to alcohol; R32 Unspecified urinary incontinence; E87.6 Hypokalemia; E83.42 Hypomagnesemia; K76.89 Other specified diseases of liver; B96.20 Unspecified Escherichia coli [E. coli] as the cause of diseases classified elsewhere; I95.1 Orthostatic hypotension; Z91.81 History of falling; I87.2 Venous insufficiency (chronic) (peripheral); Z22.322 Carrier or suspected carrier of Methicillin resistant Staphylococcus aureus; S80.212A Abrasion, left knee, initial encounter; W19.XXXA Unspecified fall, initial encounter
CPT/HCPCS: 36415; 71045; 76700; 80048; 80053; 80069; 80202; 80320; 81001; 82105; 82140; 82607; 82746; 83605; 83690; 83735; 84100; 85025; 85610; 87040; 87077; 87086; 87150; 87181; 93005; 93922; 96365; 96366; 96367; 96372; 96375; 97116; 97161; 97530; 99283; A6250; A9270; G0378; J2060; J3370; J7120; J8499; 87081; 99284

== ENCOUNTER 2019-04-06 07:40 | Outpatient (CLI) | payer OTHER | END 2019-04-06 07:41 | disposition short-term general hospital (02) | LOC: EMS 07:40 | PROVIDERS: ATTEND Surgery | DX: R39.89 Other symptoms and signs involving the genitourinary system (principal) | CPT/HCPCS: A0425; A0429 ==

== ENCOUNTER 2019-04-07 03:09 | Outpatient (CLI) | payer OTHER | END 2019-04-07 03:10 | disposition EMS.NT | LOC: EMS 03:09 | PROVIDERS: ATTEND Surgery | DX: Z46.6 Encounter for fitting and adjustment of urinary device (principal) ==

== ENCOUNTER 2019-07-07 14:58 | Outpatient (CLI) | payer OTHER | END 2019-07-07 14:59 | disposition short-term general hospital (02) | LOC: EMS 14:58 | PROVIDERS: ATTEND Surgery | DX: R53.1 Weakness (principal); R41.0 Disorientation, unspecified; Z72.89 Other problems related to lifestyle | CPT/HCPCS: A0425; A0427 ==

== ENCOUNTER 2019-10-08 23:12 | Outpatient (CLI) | payer OTHER | END 2019-10-08 23:59 | disposition critical access hospital (66) | LOC: EMS 23:12 | PROVIDERS: ATTEND Surgery | DX: R53.1 Weakness (principal); R32 Unspecified urinary incontinence; R47.81 Slurred speech; R25.1 Tremor, unspecified | CPT/HCPCS: A0425; A0429 ==

== ENCOUNTER 2019-10-08 23:46 | Emergency (ER) | payer OTHER ==
--- NOTE | 2019-10-09 00:21 | ED Physician Documentation ---
History of Present Illness - Stated complaint Stated Complaint: WEAKNESS - Chief complaint Chief Complaint: Neuro - History obtained from History obtained from: Patient, Family - History of Present Illness Timing: How many days ago (2-3 days) Pain level max: 0 Pain level now: 0 Improved by: nothing Worsened by: no exacerbating factors - Additonal information Additional information: c/o generalized weakness, urinary frequency, strong/foul odor to urine. He typ ically walks with a walker but was too weak tonight to ambulate with his walker. he has cirrhosis which has resulted in hepatic encephalopathy in the past Review of Systems Constitutional: reports: Fatigue. denies: Fever, Chills, Sweats Cardiac: reports: Reviewed and negative Respiratory: reports: Reviewed and negative GI: reports: Reviewed and negative : reports: Frequency, Incontinent. denies: Dysuria Musculoskeletal: reports: Reviewed and negative Neurologic: reports: Generalized weakness. denies: Focal weakness, Numbness, Altered mental status, Headache PD PAST MEDICAL HISTORY - Past Medical History Cardiovascular: Hypertension Respiratory: None Neuro: None GI: Cirrhosis : Incontinence HEENT: None Psych: None Musculoskeletal: None Derm: Eczema - Past Surgical History Past Surgical History: No - Present Medications Home Medications: Ambulatory Orders Medication Instructions Recorded Confirmed Magnesium Oxide [Mag Ox] 400 mg PO DAILYWM #15 tablet 12/18/18 10/09/19 Multivitamin W/Minerals [Theragran 1 tab PO DAILYWM #30 tablet 12/18/18 10/09/19 M] Nystatin Cream [Mycostatin Cream] 1 applic TOP BID #1 tube 12/18/18 10/09/19 Thiamine [Vitamin B-1] 100 mg PO DAILY #30 tablet 12/18/18 10/09/19 Zinc Oxide [Diaper Rash] 1 applic TP BID PRN #1 tube 12/18/18 10/09/19 rifAXIMin [Xifaxan] 550 mg PO BID #60 tablet 12/18/18 10/09/19 Diphenoxylate/Atropine [Lomotil] 1 tab PO QID PRN #0 tablet 12/25/18 10/09/19 Famotidine [Pepcid] 20 mg PO BID tablet 12/25/18 10/09/19 LORazepam [Ativan] 0.5 mg PO Q6H PRN tablet 12/25/18 10/09/19 Lactulose 30 gm PO BIDWM bottle 12/25/18 10/09/19 Loperamide [Imodium] 2 mg PO QID PRN capsule 12/25/18 10/09/19 Midodrine 10 mg PO TID PRN tablet 12/25/18 10/09/19 Ondansetron Odt [Zofran Odt] 4 mg TL Q6HR PRN tablet 12/25/18 10/09/19 levoFLOXacin [Levaquin] 500 mg PO DAILY 13 Days #13 tablet 12/25/18 10/09/19 Amox/Clav 875/125 [Augmentin] 1 each PO Q12H #14 tablet 10/09/19 - Allergies Allergies/Adverse Reactions: Allergies Allergy/AdvReac Type Severity Reaction Status Date / Time No Known Drug Allergies Allergy Verified 10/08/19 23:47 - Social History Does the pt smoke?: No Smoking Status: Never smoker Does the pt drink ETOH?: Yes Does the pt have substance abuse?: No PD ED PE NORMAL - Vitals Vital signs reviewed: Yes - General General: No acute distress, Well developed/nourished, Other (drowsy but awaknes to voice, responds quietly but appropriately. speech is slurred at times. follows commands) - HEENT HEENT: PERRL, EOMI, Moist mucous membranes - Neck Neck: Supple, no meningeal sign - Cardiac Cardiac: RRR, No murmur - Respiratory Respiratory: No respiratory distress, Clear bilaterally - Abdomen Abdomen: Normal bowel sounds, Soft, Non tender - Derm Derm: Normal color, Warm and dry - Neuro Neuro: sausage tier 2-12 intact, No motor deficit, No sensory deficit PD ED PE EXPANDED - Extremities Extremities: Pedal edema bilateral Results - Vitals Vitals: Oxygen O2 Source Room air - Labs Labs: Microbiology 10/09/19 00:20 Urine Culture - Final Urine,Catheterized Acinetobacter Baumannii Comple Laboratory Tests 10/09/19 10/09/19 10/09/19 00:20 01:50 01:50 WBC 17.8 H RBC 3.89 L Hgb 12.1 L Hct 36.3 L MCV 93.3 MCH 31.1 H MCHC 33.3 RDW 13.2 Plt Count 162 MPV 10.7 Neut # (Auto) Not Reportable Lymph # (Auto) Not Reportable [place] # (Auto) Not Reportable Eos # (Auto) Not Reportable Baso # (Auto) Not Reportable Absolute Nucleated RBC Not Reportable Total Counted 100 Band Neuts % (Manual) 0 Abnorm Lymph % (Manual) 0 Nucleated RBC % Not Reportable Neutrophils # (Manual) 15.0 H Lymphocytes # (Manual) 1.4 L Monocytes # (Manual) 1.4 H Eosinophils # (Manual) 0.0 Basophils # (Manual) 0.0 Differential Comment MANUAL DIFFERENTIAL WBC Morphology NORMAL APPEARANCE Platelet Estimate NORMAL (130-450,000) Platelet Morphology NORMAL APPEARANCE RBC Morph Micro Appear NORMAL APPEARANCE PT 14.9 H INR 1.3 H APTT 28.9 Sodium Potassium Chloride Carbon Dioxide Anion Gap BUN Creatinine Estimated GFR (MDRD) Glucose Calcium Total Bilirubin AST ALT Alkaline Phosphatase Ammonia B-Natriuretic Peptide Total Protein Albumin Globulin Albumin/Globulin Ratio Lipase Urine Color YELLOW Urine Clarity CLEAR Urine pH 6.0 Ur Specific [place] 1.010 Urine Protein 30 H Urine Glucose (UA) NEGATIVE Urine Ketones NEGATIVE Urine Occult Blood MODERATE H Urine Nitrite NEGATIVE Urine Bilirubin NEGATIVE Urine Urobilinogen 1 (NORMAL) Ur Leukocyte Esterase TRACE H Urine RBC 0-5 Urine WBC 6-10 H Ur Squamous Epith Cells FEW Squamous Urine Bacteria Few Ur Microscopic Review INDICATED Urine Culture Comments INDICATED 10/09/19 10/09/19 10/09/19 01:50 01:50 03:00 WBC RBC Hgb Hct MCV MCH MCHC RDW Plt Count MPV Neut # (Auto) Lymph # (Auto) [place] # (Auto) Eos # (Auto) Baso # (Auto) Absolute Nucleated RBC Total Counted Band Neuts % (Manual) Abnorm Lymph % (Manual) Nucleated RBC % Neutrophils # (Manual) Lymphocytes # (Manual) Monocytes # (Manual) Eosinophils # (Manual) Basophils # (Manual) Differential Comment WBC Morphology Platelet Estimate Platelet Morphology RBC Morph Micro Appear PT INR APTT Sodium 133 L Potassium 4.0 Chloride 102 Carbon Dioxide 23 Anion Gap 8.0 BUN 26 H Creatinine 1.5 H Estimated GFR (MDRD) 48 L Glucose 128 H Calcium 9.9 Total Bilirubin 1.9 H AST 24 ALT 17 Alkaline Phosphatase 77 Ammonia 57.3 H B-Natriuretic Peptide 253 H Total Protein 7.2 Albumin 3.3 Globulin 3.9 Albumin/Globulin Ratio 0.8 L Lipase 53 H Urine Color Urine Clarity Urine pH Ur Specific [place] Urine Protein Urine Glucose (UA) Urine Ketones Urine Occult Blood Urine Nitrite Urine Bilirubin Urine Urobilinogen Ur Leukocyte Esterase Urine RBC Urine WBC Ur Squamous Epith Cells Urine Bacteria Ur Microscopic Review Urine Culture Comments PD MEDICAL DECISION MAKING - ED course Complexity details: reviewed old records, reviewed results, re-evaluated patient, considered differential, d/w patient, d/w family ED course: blood tests are comparable to previous results. UA s/o mild/early UTI, will cover with antibotics. prior to d/c, he was able to stand and ambulate to/from bathroom using walker. Departure - Departure Disposition: Home, Self Care Clinical Impression: Weakness UTI (urinary tract infection) Qualifiers: Urinary tract infection type: acute cystitis Hematuria presence: without hematuria Qualified Code(s): N30.00 - Acute cystitis without hematuria Condition: Stable Instructions: ED UTI Cystitis Male Follow-Up: CHRISTINA RAHMAN MD [Primary Care Provider] - (Call to arrange for next available appointment) Prescriptions: Amox/Clav 875/125 [Augmentin] 1 each PO Q12H #14 tablet Discharge Date/Time: 10/09/19 05:40
[2019-10-09 00:41] LABS: BILIRUBIN,URINE NEGATIVE (NEGATIVE); GLUCOSE, URINE (UA) NEGATIVE (NEGATIVE); KETONES,URINE (UA) NEGATIVE (NEGATIVE); LEUKOCYTE ESTERASE, URINE TRACE (NEGATIVE); NITRITE,URINE NEGATIVE (NEGATIVE); OCCULT BLOOD,URINE MODERATE (NEGATIVE); PROTEIN,URINE 30 mg/dL (NEGATIVE); UROBILINOGEN,URINE 1 (NORMAL) E.U./dL (NORMAL)
[2019-10-09 00:46] LABS: CLARITY,URINE CLEAR (CLEAR)
[2019-10-09 00:56] LABS: RBC,URINE 0-5 /HPF (0-5)
[2019-10-09 00:57] LABS: BACTERIA,URINE Few /HPF (None Seen); SQUAMOUS EPITHELIAL CELL,UR FEW Squamous (<= Few)
[2019-10-09] MEDS ORDERED: PIPERACILLIN/TAZOBACTAM 3.375 GM in SODIUM CHLORIDE 0.9% MINIBAG 100 ML IV STA (01:44)
[2019-10-09 02:05] LABS: BASOPHILS % (AUTO) 0.2 %; HGB - HEMOGLOBIN 12.1 g/dL (14.0-18.0); LYMPHOCYTES % (AUTO) 5.2 %; MEAN CORPUSCULAR HEMOGLOBIN 31.1 pg (27.0-31.0); MEAN CORPUSCULAR HGB CONC 33.3 g/dL (32.0-36.0); MEAN CORPUSCULAR VOLUME 93.3 fL (80.0-94.0); MEAN PLATELET VOLUME 10.7 fL (7.4-11.4); MONOCYTES % (AUTO) 9.4 %; NEUTROPHILS % (AUTO) 84.2 %; PLT - PLATELET COUNT 162 10^3/uL (130-450); RED BLOOD COUNT 3.89 10^6/uL (4.70-6.10); RED CELL DISTRIBUTION WIDTH 13.2 % (12.0-15.0); WHITE BLOOD COUNT 17.8 x10^3/uL (4.8-10.8)
[2019-10-09 02:11] LABS: ABNORMAL LYMPHS % (MANUAL) 0 %; BAND NEUTROPHILS % (MANUAL) 0 %
[2019-10-09 02:12] LABS: ALBUMIN 3.3 g/dL (3.2-5.5); ALBUMIN/GLOBULIN RATIO 0.8 (1.0-2.2); BILIRUBIN,TOTAL 1.9 mg/dL (0.2-1.0); CALCIUM 9.9 mg/dL (8.5-10.3); CREATININE 1.5 mg/dL (0.6-1.2); TOTAL PROTEIN 7.2 g/dL (6.7-8.2)
[2019-10-09 02:15] LABS: INR 1.3 (0.8-1.2); PT - PROTHROMBIN TIME 14.9 secs (9.9-12.6)
[2019-10-09 02:22] LABS: PARTIAL THROMBOPLASTIN TIME 28.9 secs (24.9-33.3)
[2019-10-09 02:29] LABS: LYMPHOCYTES # (MANUAL) 1.4 10^3/uL (1.5-3.5); LYMPHOCYTES % (MANUAL) 8 %; MONOCYTES # (MANUAL) 1.4 10^3/uL (0.0-1.0)
[2019-10-09 02:30] LABS: RBC MORPHOLOGY (MULTIPLE) NORMAL APPEARANCE (NORMAL)
[2019-10-09 02:32] LABS: DIFFERENTIAL COMMENT MANUAL DIFFERENTIAL; PLATELET ESTIMATE, MANUAL NORMAL (130-450,000) (NORMAL); PLATELET MORPHOLOGY NORMAL APPEARANCE (NORMAL)
[2019-10-09 05:04] VITALS: BP 121/64
--- NOTE | 2019-10-11 12:43 | ED Physician Documentation ---
ED Addendum - Addendum Addendum: 10/11/19 12:42 After review of the urine culture I called the patient, he has a fairly sandoval resistant organism, Acinetobacter that is resistant to all oral antibiotics. I called the patient, he says he is doing great, no more symptoms, his energy is fine and no fevers. As such I think it is fine to continue the antibiotic and I advised him to have a repeat urinalysis done with his physician within the next couple of days.
== END 2019-10-09 05:40 | disposition home or self-care (01) ==
LOC: EDUNIT# → ED 23:46
DX: N30.00 Acute cystitis without hematuria (principal); R53.1 Weakness; R60.0 Localized edema; I10 Essential (primary) hypertension; K74.60 Unspecified cirrhosis of liver
CPT/HCPCS: 36415; 80053; 81001; 81003; 82140; 83690; 83880; 85025; 85610; 85730; 87077; 87086; 87181; 96365; 99284

== ENCOUNTER 2019-11-24 21:41 | Outpatient (CLI) | payer OTHER | END 2019-11-24 21:42 | disposition short-term general hospital (02) | LOC: EMS 21:41 | PROVIDERS: ATTEND Surgery | DX: R53.1 Weakness (principal); R39.89 Other symptoms and signs involving the genitourinary system | CPT/HCPCS: A0425; A0429 ==

== ENCOUNTER 2020-05-24 19:28 | Outpatient (CLI) | payer OTHER | END 2020-05-24 19:29 | disposition short-term general hospital (02) | LOC: EMS 19:28 | PROVIDERS: ATTEND Surgery | DX: R29.810 Facial weakness (principal); R47.81 Slurred speech | CPT/HCPCS: A0425; A0427 ==

== ENCOUNTER 2021-07-04 18:17 | Outpatient (CLI) | payer OTHER | END 2021-07-04 18:18 | disposition EMS.NT | LOC: EMS 18:17 | DX: Z03.89 Encounter for observation for other suspected diseases and conditions ruled out (principal) ==

== ENCOUNTER 2021-10-25 07:07 | Outpatient (CLI) | payer OTHER | END 2021-10-25 07:08 | disposition EMS.NT | LOC: EMS 07:07 | DX: Z03.89 Encounter for observation for other suspected diseases and conditions ruled out (principal) ==

== ENCOUNTER 2021-11-22 01:48 | Outpatient (CLI) | payer OTHER | END 2021-11-22 01:49 | disposition EMS.NT | LOC: EMS 01:48 | DX: Z03.89 Encounter for observation for other suspected diseases and conditions ruled out (principal) ==

== ENCOUNTER 2022-01-30 22:31 | Outpatient (CLI) | payer OTHER | END 2022-01-30 22:32 | disposition EMS.NT | LOC: EMS 22:31 | DX: Z03.89 Encounter for observation for other suspected diseases and conditions ruled out (principal) ==

== ENCOUNTER 2022-02-13 22:22 | Outpatient (CLI) | payer OTHER | END 2022-02-13 22:23 | disposition left against medical advice (07) | LOC: EMS 22:22 | DX: Z03.89 Encounter for observation for other suspected diseases and conditions ruled out (principal) ==

== ENCOUNTER 2022-02-14 06:17 | Outpatient (CLI) | payer OTHER | END 2022-02-14 06:18 | disposition EMS.NT | LOC: EMS 06:17 | DX: Z03.89 Encounter for observation for other suspected diseases and conditions ruled out (principal) ==

== ENCOUNTER 2022-03-01 06:18 | Outpatient (CLI) | payer OTHER | END 2022-03-01 06:19 | disposition EMS.NT | LOC: EMS 06:18 | DX: Z03.89 Encounter for observation for other suspected diseases and conditions ruled out (principal) ==

== ENCOUNTER 2022-03-04 13:16 | Outpatient (CLI) | payer OTHER | END 2022-03-04 13:17 | disposition EMS.NT | LOC: EMS 13:16 | DX: Z03.89 Encounter for observation for other suspected diseases and conditions ruled out (principal) ==

== ENCOUNTER 2022-04-01 06:25 | Outpatient (CLI) | payer OTHER | END 2022-04-01 06:26 | disposition left against medical advice (07) | LOC: EMS 06:25 | DX: Z03.89 Encounter for observation for other suspected diseases and conditions ruled out (principal) ==

== ENCOUNTER 2022-04-01 22:07 | Outpatient (CLI) | payer OTHER | END 2022-04-01 22:08 | disposition EMS.NT | LOC: EMS 22:07 | DX: R53.1 Weakness (principal) ==

== ENCOUNTER 2022-06-20 06:22 | Outpatient (CLI) | payer OTHER | END 2022-06-20 06:23 | disposition EMS.NT | LOC: EMS 06:22 | DX: Z03.89 Encounter for observation for other suspected diseases and conditions ruled out (principal) ==

== ENCOUNTER 2022-06-23 23:05 | Outpatient (CLI) | payer OTHER | END 2022-06-23 23:06 | disposition EMS.NT | LOC: EMS 23:05 | DX: Z03.89 Encounter for observation for other suspected diseases and conditions ruled out (principal) ==

== ENCOUNTER 2022-07-01 05:53 | Outpatient (CLI) | payer OTHER | END 2022-07-01 05:54 | disposition EMS.NT | LOC: EMS 05:53 | DX: Z03.89 Encounter for observation for other suspected diseases and conditions ruled out (principal) ==

== ENCOUNTER 2022-07-16 21:07 | Outpatient (CLI) | payer OTHER | END 2022-07-16 21:08 | disposition EMS.NT | LOC: EMS 21:07 | DX: Z03.89 Encounter for observation for other suspected diseases and conditions ruled out (principal) ==

== ENCOUNTER 2022-09-09 19:03 | Outpatient (CLI) | payer OTHER | END 2022-09-09 19:04 | disposition EMS.NT | LOC: EMS 19:03 | DX: Z03.89 Encounter for observation for other suspected diseases and conditions ruled out (principal) ==

== ENCOUNTER 2022-09-15 11:27 | Outpatient (CLI) | payer OTHER | END 2022-09-15 11:28 | disposition EMS.NT | LOC: EMS 11:27 | DX: Z03.89 Encounter for observation for other suspected diseases and conditions ruled out (principal) ==

== ENCOUNTER 2022-10-10 22:32 | Outpatient (CLI) | payer OTHER | END 2022-10-10 22:33 | disposition EMS.NT | LOC: EMS 22:32 | DX: Z03.89 Encounter for observation for other suspected diseases and conditions ruled out (principal) ==

== ENCOUNTER 2022-10-30 18:27 | Outpatient (CLI) | payer OTHER | END 2022-10-30 18:28 | disposition EMS.NT | LOC: EMS 18:27 | DX: R53.1 Weakness (principal) ==

== ENCOUNTER 2022-11-25 10:49 | Outpatient (CLI) | payer OTHER | END 2022-11-25 23:59 | disposition short-term general hospital (02) | LOC: EMS 10:49 | DX: R53.1 Weakness (principal) | CPT/HCPCS: A0425; A0429 ==

== ENCOUNTER 2023-01-09 11:47 | Outpatient (CLI) | payer OTHER ==
[2023-01-09 12:16] LABS: ALBUMIN 3.1 g/dL (3.2-5.5); ALBUMIN/GLOBULIN RATIO 0.8 (1.0-2.2); ALKALINE PHOSPHATASE 81 IU/L (42-121); ALT ALANINE AMINOTRANSFERASE < 10 IU/L (10-60); AST ASPARTATE AMINOTRANSFERASE 24 IU/L (10-42); BUN - BLOOD UREA NITROGEN 27 mg/dL (6-20); CALCIUM 9.5 mg/dL (8.5-10.3); CARBON DIOXIDE - CO2 30 mmol/L (21-32); CHLORIDE 101 mmol/L (101-111); CREATININE 1.3 mg/dL (0.6-1.2); GFR - MDRD 56 (>89); GLUCOSE 74 mg/dL (70-100); POTASSIUM 3.8 mmol/L (3.5-5.0); SODIUM 136 mmol/L (135-145); TOTAL PROTEIN 6.9 g/dL (6.7-8.2)
== END 2023-01-09 11:48 | disposition home or self-care (01) ==
LOC: LAB.R 11:47
PROVIDERS: ATTEND Registered Nurse
DX: K76.82 Hepatic encephalopathy (principal)
CPT/HCPCS: 80053; 82140

== ENCOUNTER 2023-01-24 10:49 | Outpatient (CLI) | payer OTHER | END 2023-01-24 10:50 | disposition home or self-care (01) | LOC: LAB.R 10:49 | PROVIDERS: ATTEND Registered Nurse | DX: K76.82 Hepatic encephalopathy (principal) | CPT/HCPCS: 82140 ==

== ENCOUNTER 2023-03-14 18:41 | Outpatient (CLI) | payer OTHER | END 2023-03-14 18:42 | disposition EMS.NT | LOC: EMS 18:41 | DX: Z03.89 Encounter for observation for other suspected diseases and conditions ruled out (principal) ==

== ENCOUNTER 2023-03-24 10:38 | Outpatient (CLI) | payer OTHER | END 2023-03-24 23:59 | disposition EMS.NT | LOC: EMS 10:38 | DX: Z03.89 Encounter for observation for other suspected diseases and conditions ruled out (principal) ==

== ENCOUNTER 2023-04-27 23:32 | Outpatient (CLI) | payer OTHER | END 2023-04-27 23:33 | disposition short-term general hospital (02) | LOC: EMS 23:32 | DX: R53.1 Weakness (principal) | CPT/HCPCS: A0425; A0429 ==

== ENCOUNTER 2023-05-01 19:15 | Outpatient (CLI) | payer OTHER | END 2023-05-01 23:59 | disposition left against medical advice (07) | LOC: EMS 19:15 | DX: Z03.89 Encounter for observation for other suspected diseases and conditions ruled out (principal) ==

== ENCOUNTER 2023-05-04 18:24 | Outpatient (CLI) | payer OTHER | END 2023-05-04 18:25 | disposition EMS.NT | LOC: EMS 18:24 | DX: Z03.89 Encounter for observation for other suspected diseases and conditions ruled out (principal) ==

== ENCOUNTER 2023-05-05 18:46 | Outpatient (CLI) | payer OTHER | END 2023-05-05 23:59 | disposition EMS.NT | LOC: EMS 18:46 | DX: Z03.89 Encounter for observation for other suspected diseases and conditions ruled out (principal) ==

== ENCOUNTER 2023-05-15 08:46 | Outpatient (CLI) | payer OTHER | END 2023-05-15 08:47 | disposition short-term general hospital (02) | LOC: EMS 08:46 | DX: R21 Rash and other nonspecific skin eruption (principal); E86.0 Dehydration; R20.2 Paresthesia of skin | CPT/HCPCS: A0425; A0427 ==

== ENCOUNTER 2023-05-21 18:59 | Outpatient (CLI) | payer OTHER | END 2023-05-21 19:00 | disposition EMS.NT | LOC: EMS 18:59 | DX: Z03.89 Encounter for observation for other suspected diseases and conditions ruled out (principal) ==

== ENCOUNTER 2023-06-02 09:00 | Outpatient (CLI) | payer OTHER | END 2023-06-02 09:01 | disposition short-term general hospital (02) | LOC: EMS 09:00 | DX: M79.89 Other specified soft tissue disorders (principal); R21 Rash and other nonspecific skin eruption; L53.9 Erythematous condition, unspecified | CPT/HCPCS: A0425; A0429 ==

== ENCOUNTER 2023-06-05 23:50 | Outpatient (CLI) | payer OTHER | END 2023-06-05 23:59 | disposition EMS.NT | LOC: EMS 23:50 | DX: Z03.89 Encounter for observation for other suspected diseases and conditions ruled out (principal) ==

== ENCOUNTER 2023-07-04 18:31 | Outpatient (CLI) | payer OTHER | END 2023-07-04 18:32 | disposition EMS.NT | LOC: EMS 18:31 | DX: Z03.89 Encounter for observation for other suspected diseases and conditions ruled out (principal) ==

== ENCOUNTER 2023-07-06 11:16 | Outpatient (CLI) | payer OTHER | END 2023-07-06 11:17 | disposition EMS.NT | LOC: EMS 11:16 | DX: Z03.89 Encounter for observation for other suspected diseases and conditions ruled out (principal) ==

== ENCOUNTER 2023-07-16 18:34 | Outpatient (CLI) | payer OTHER | END 2023-07-16 18:35 | disposition EMS.NT | LOC: EMS 18:34 | DX: R53.1 Weakness (principal) ==

== ENCOUNTER 2023-09-10 15:43 | Outpatient (CLI) | payer OTHER | END 2023-09-10 15:44 | disposition short-term general hospital (02) | LOC: EMS 15:43 | DX: R53.1 Weakness (principal); R39.89 Other symptoms and signs involving the genitourinary system | CPT/HCPCS: A0425; A0429 ==

== ENCOUNTER 2023-11-17 00:33 | Outpatient (CLI) | payer OTHER | END 2023-11-17 23:59 | disposition EMS.NT | LOC: EMS 00:33 | DX: Z03.89 Encounter for observation for other suspected diseases and conditions ruled out (principal) ==

== ENCOUNTER 2023-11-19 10:53 | Outpatient (CLI) | payer OTHER | END 2023-11-19 23:59 | disposition short-term general hospital (02) | LOC: EMS 10:53 | DX: R41.82 Altered mental status, unspecified (principal); R53.1 Weakness; R47.1 Dysarthria and anarthria | CPT/HCPCS: A0425; A0429 ==

== ENCOUNTER 2023-11-24 09:08 | Outpatient (CLI) | payer OTHER | END 2023-11-24 23:59 | disposition EMS.NT | LOC: EMS 09:08 | DX: Z03.89 Encounter for observation for other suspected diseases and conditions ruled out (principal) ==

== ENCOUNTER 2024-01-25 11:49 | Outpatient (CLI) | payer OTHER | END 2024-01-25 23:59 | disposition short-term general hospital (02) | LOC: EMS 11:49 | DX: L53.9 Erythematous condition, unspecified (principal); R53.1 Weakness | CPT/HCPCS: A0425; A0429 ==

== ENCOUNTER 2024-02-19 15:16 | Outpatient (CLI) | payer OTHER | END 2024-02-19 23:59 | disposition short-term general hospital (02) | LOC: EMS 15:16 | DX: R41.82 Altered mental status, unspecified (principal); R50.9 Fever, unspecified; R00.0 Tachycardia, unspecified | CPT/HCPCS: A0425; A0427 ==

== ENCOUNTER 2024-03-07 12:41 | Outpatient (CLI) | payer MEDICARE, OTHER | END 2024-03-07 23:59 | disposition short-term general hospital (02) | LOC: EMS 12:41 | PROVIDERS: ATTEND Emergency Medicine | DX: R41.82 Altered mental status, unspecified (principal); R53.1 Weakness | CPT/HCPCS: A0425; A0429 ==

== ENCOUNTER 2024-03-13 17:41 | Outpatient (CLI) | payer OTHER | END 2024-03-13 23:59 | disposition EMS.NT | LOC: EMS 17:41 | DX: Z03.89 Encounter for observation for other suspected diseases and conditions ruled out (principal) ==